=== PATIENT | male | born 1935 | race Caucasian/White ===

== ENCOUNTER 2024-03-03 21:33 | Emergency (ER) | payer OTHER, SELFPAY ==
[2024-03-03 21:35] VITALS: BP 144/60
[2024-03-03 21:37] VITALS: BP 144/60
--- NOTE | 2024-03-03 21:47 | ED.GENMED ---
History of Present Illness
General
Chief Complaint: Abdominal Symptoms
Source: patient, ambulance crew and previous hospital records (Previous hospitalization December 2021 for chest pain, thought to be related to GERD. Confusion and lethargy related to UTI.)
Exam Limitations: none
Time Seen by Provider: 03/03/24 21:35
History of Present Illness
History of Present Illness:
This is an 88-year-old obese gentleman who resides at [facility] living apartment with his . He has history of A-fib chronically maintained on Eliquis, history of insulin requiring diabetes, cardioembolic stroke, GUILLERMO, GERD, BPH,
UTI who presents with over 2-week history of intermittent right upper quadrant, right anterolateral costal margin pain that seems to come and go, somewhat sharp and burning in nature. He denies coughing or shortness of breath, no nausea nor
vomiting, no fever no chills. No history of similar episodes of pain. No recent injury nor fall.
Was evaluated by his PCP, underwent outpatient CT abdomen pelvis February 14 overall unremarkable save for oral contrast in the distal esophagus likely representing GERD. Has been on pantoprazole twice daily. After CAT scan result Carafate was
added. Thus far no improvement.
Patient states pain comes and goes, severe at times. Is worse with certain movements however also occurs when he is just resting, without moving. He 'convinced' his to give him a tramadol this afternoon, he reports no significant improvement
with 1 dose of tramadol. He is chronically maintained on Tylenol 1000 mg twice daily. He has not had a rash.
Past History
Past History
ED Past Medical History: Arrthythmia (Atrial fibrillation), CVA, HTN, Hypercholesterolemia, IDDM, NIDDM and Other (GUILLERMO on CPAP, obesity, Chronic LBP w/ gait dysfunction; BPH)
ED Past Surgical History: Cardiac (Unremarkable cardiac catheterization April 2017.), Orthopedic (Lumbar laminectomy ( L3-L5)2012) and Other (Strabismus repair)
Patient has exhibited threatening behavior?: No
Social History
Tobacco: Non-smoker
Alcohol: None
Drug: None
Personal:
Living: with family
Employment: Retired
Family History
Family History: Hypertension
Phy Exam
Physical Exam
Physical Exam:
GENERAL: 88-year-old obese gentleman appears his stated age, bright and alert, pleasant, easily communicative and appears in no acute distress. Intermittently, briefly wincing in pain during initial exam.
EYE: anicteric
NECK: Supple, nontender, no meningismus, no significant adenopathy.
ENT: oral mucosa is moist. No rhinorrhea.
CARDIAC: Regular rate and rhythm. no murmur.
LUNGS: no acute respiratory distress, scant rales right base. Moderate tenderness right anterolateral distal costal margin.
ABDOMEN: Obese, soft, nondistended, mild tenderness with deep palpation right upper superior quadrant, no r/g, no cvat. normoactive BS.
NEUROLOGICAL: Alert and oriented x3, no focal neuro deficits.
SKIN: Warm and dry, normal color, skin intact. No rash.
MUSCULOSKELETAL: No clubbing or cyanosis. Trace pretibial edema bilateral lower extremities. Peripheral pulses are full and equal b/l. No palpable tenderness.
PSYCH: Normal and appropriate interaction.
Course
Orders/Labs/Results
Orders:
Orders
03/03/24 21:50
Complete Blood Count/With Diff Urgent
03/03/24 21:58
CR Chest - 2 Views Urgent
Comment:
Reason For Exam: Right ant lower costal margin pleuritic pain
03/03/24 22:31
Comprehensive Metabolic Panel Urgent
Lipase Urgent
03/03/24 22:59
Urinalysis Reflex To Culture Urgent
Date Specimen was Collected: 03/03/24
Time Specimen was Collected: 22:58
Urine Microscopic Reflex Cult Urgent
Urine Culture Urgent
DARYA Source: U
Specimen Description:
Date Specimen was Collected: 03/03/24
Time Specimen was Collected: 22:58
03/03/24 23:04
Ketorolac [Toradol] 30 mg IV NOW STA
03/04/24 00:28
Lidocaine [Lidocaine 4% Patch] 1 patch TOPICAL NOW STA
Apply Lidocaine patch(s) to:: right ant chest wall
Abnormal Lab Results
03/03/24 03/03/24 03/03/24
21:50 22:31 22:59
RBC 4.34 L 10^6/uL
(4.70-6.10)
MCH 33.9 H pg
(27.0-31.0)
Absolute Monos (auto) 0.7 H 10^3/uL
(0.1-0.6)
Absolute Eos (auto) 1.3 H 10^3/uL
(0-0.7)
Eosinophils % 15.9 H %
(0-6)
Glucose 169 H mg/dl
(70-99)
Ur Occult Blood Reflex 1+ A
(Negative)
Leukocyte Esterase Rfl 2+ A
(Negative)
Urine RBC 11-15 A /HPF
(0-2)
Urine WBC (Reflex) 21-25 A /HPF
(0-5)
Urine Bacteria (Reflex) Few A
(Negative)
03/03/24 21:50
03/03/24 22:31
Vital Signs
Initial and Last Documented VS:
Initial Vital Signs
Temp Pulse Resp BP Pulse Ox
97.2 F 71 15 144/60 97
03/03/24 21:35 03/03/24 21:35 03/03/24 21:35 03/03/24 21:35 03/03/24 21:35
Last Documented Vital Signs
Temp Pulse Resp BP Pulse Ox
97.2 F 66 20 155/66 97
03/03/24 21:35 03/03/24 23:55 03/03/24 23:55 03/03/24 23:55 03/03/24 23:55
MDM/Problems Addressed
Differential Diagnosis Includes:
Concern for intercostal muscle/chest wall strain, pneumonia, pleural effusion, cholecystitis, renal colic/right ureteric stone.
Symptoms have been intermittent over the past 2 weeks, no accompanying rash, herpes zoster is doubtful.
Will check labs, urinalysis and plan for chest x-ray. Will consider other imaging depending on results.
Chronically maintained on Eliquis, PE/other thromboembolism are unlikely.
Chronic conditions affecting care: DM, HTN and Arrhythmia
*Radiology
Radiology exam reviewed: preliminary read by ED provider (Chest x-ray is unremarkable)
*Pulse Oximetry
Patient hypoxic: no
*Critical Care Note
Total Time (30-74mins, 75-104mins- exclusive of procedures): Not Applicable
Update Note
Update Note:
03/03/2024 2310 PM
Labs are unremarkable.
Chest x-ray is unremarkable as well, clear lung garcia.
He continues to have significant, pinpoint tenderness right anterior lower intercostal tenderness to palpation. Palpation in this area seems to exactly reproduce his pain.
With unremarkable labs, unremarkable CT 2 weeks ago. No indication to repeat CT of the abdomen and pelvis.
I suspect musculoskeletal pain either intercostal myofascitis versus an element of thoracic neuralgia.
Patient is prescribed tramadol but admits that she hesitates to use this as he sometimes becomes mildly drowsy, and she fears that he will fall especially at nighttime.
Will trial a one-time dose of Toradol.
03/04/2024 0029 AM
Patient reports no significant improvement in pain. Overall appears comfortable but continues with intermittent brief twinges of pain right anterior lower costal margin. He continues with moderate focal/pinpoint tenderness anterior distal
intercostal region.
He continues to have no shortness of breath, abdomen remains soft without appreciable tenderness.
Pain does not appear pleuritic in nature.
Will trial lidocaine patch. 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 He denies adhesive allergy with Band-Aids, Tegaderm for IVs,
excetra.
Will apply lidocaine patch and recommend he discontinue this in the morning.
He could trial topical numbing cream without overlying adhesive.
Recommend continuing twice daily Tylenol and continue tramadol at least in the a.m.
Recommend prompt follow-up with PCP on Tuesday for recheck. Could consider pain management evaluation.
ED Attending Note
-
Portions of this chart may have been created with voice recognition software.� Occasional wrong word or��sound alike� substitutions may have occurred due to the inherent limitations of voice recognition software.
Discharge Plan
Departure
Patient Disposition: Home (Routine Discharge)
Date of Disposition: 03/04/24
Time of Disposition: 00:39
Patient with high blood pressure during this ER visit?: No
Condition: Good
Discharge Problem:
Intercostal myositis
Instructions: Costochondritis
Prescriptions:
No Action
tamsulosin 0.4 MG capsule
0.4 mg PO QPM
finasteride 5 MG tablet
5 mg PO QPM
Eliquis 5 MG tablet
5 mg PO BID Qty: 60 0RF
Systane (PF) 1 EACH dropperette
1 - 2 drops BOTH EYES BID
Januvia 100 MG tablet
100 mg PO DAILY
PreserVision AREDS 1 CAP capsule
1 cap PO BID
L.acidoph, paracasei,B. lactis 1 EACH capsule
1 ea PO DAILY
Novolin N NPH U-100 Insulin 1,000 UNITS/10 ML suspension
80 - 100 units SC BID
Patient Comments:
psyllium Packet
0.5 packet PO BID
tramadol 50 mg Tablet
50 mg PO BID PRN (Reason: moderate pain)
Patient Comments:
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
pantoprazole [Protonix] 40 mg Tablet,Delayed Release (Dr/Ec)
40 mg PO BID
metformin 500 mg Tablet Extended Release 24 Hr
500 mg PO QPM
Cbd Gummies
1 ea PO HS
methenamine hippurate 1 gram tablet
1 g PO BID Qty: 60 0RF
ascorbic acid (vitamin C) [Vitamin C] 1,000 mg tablet
500 mg PO BID Qty: 60 0RF
polyethylene glycol 3350 [Miralax] 17 gram Powder In Packet
17 g PO DAILY PRN (Reason: constipation)
sucralfate 1 gram Tablet
1 g PO BID
Kaopectate (bismuth subsalicy) 262 mg Tablet
262 mg PO 4XD PRN (Reason: vomiting)
fluticasone propionate 50 mcg/actuation [place],Suspension
1 spray INTRANASAL DAILY
loratadine 10 mg Tablet
10 mg PO DAILY PRN (Reason: allergies)
guaifenesin [Mucinex] 600 mg Tablet Extended Release 12hr
600 mg PO Q12H PRN (Reason: cough)
acetaminophen 500 mg Tablet
1,000 mg PO BID
Referrals:
Emily Tapia MD [Family Provider] - Next open appointment
Interventions
Interventions:
*Risk Screen - Suicide Last Done: 03/03/24 21:35
*General Assessment Last Done: 03/03/24 21:35
*Neglect/Abuse Screening Last Done: 03/03/24 21:35
ED- Fall Risk Assessment Last Done: 03/03/24 21:42
*ED COVID-19 Vaccine History Last Done: 03/03/24 21:35
ST-Uppixl-Ptseypklvb Assessment Last Done: 03/03/24 21:42
Discharge Date and Time
Print Language: TUNISIAN
[2024-03-03 21:58] LABS: % Basophils 0.2 % (0-2); % Eosinophils 15.9 % (0-6); % Immature Granulocytes 0.5 % (0-0.5); % Lymphocytes 24.6 % (20.5-51.1); % Monocytes 8.8 % (1.7-9.3); Absolute Eosinophils 1.3 10^3/uL (0-0.7); Absolute Monocytes 0.7 10^3/uL (0.1-0.6); Absolute Neutrophils 4.1 10^3/uL (1.4-6.5); Hematocrit 40.6 % (39.0-52.0); Hemoglobin 14.7 g/dL (13.0-18.0); Mean Corp Hgb Conc. 36.2 g/dL (33.0-37.0); Mean Corpuscular Hgb 33.9 pg (27.0-31.0); Mean Corpuscular Volume 93.5 fL (80.0-94.0); Mean Platelet Volume 10.1 fL (7.4-10.4); Nucleated Red Blood Cells % 0 % (-); Platelet Count 194 10^3/uL (130-400); Red Blood Cell Count 4.34 10^6/uL (4.70-6.10); Red Cell Dist. Width 13.3 % (11.5-14.5); White Blood Cell Count 8.2 10^3/uL (4.8-10.8)
[2024-03-03 22:00] VITALS: BP 142/67
[2024-03-03 22:49] LABS: ALT (SGPT) 19 U/L (0-50); AST (SGOT) 22 U/L (17-59); Albumin 4.1 g/dl (3.5-5.0); Alkaline Phosphatase 67 U/L (38-126); Blood Urea Nitrogen 16 mg/dl (9-20); Carbon Dioxide 22 mmol/L (22-30); Chloride 105 mmol/L (98-107); Glucose 169 mg/dl (70-99); Lipase 101 U/L (23-300); Potassium 4.4 mmol/L (3.5-5.1); Sodium 138 mmol/L (135-145); Total Bilirubin 0.6 mg/dl (0.2-1.3); eGFR > 60.00
[2024-03-03 23:09] LABS: Urine Albumin Trace (Neg - Trace); Urine Bilirubin Negative (Negative); Urine Character Clear (Clear); Urine Color Yellow; Urine Glucose Negative (Negative); Urine Ketone Negative (Negative); Urine Leukocyte 2+ (Negative); Urine Nitrite Negative (Negative); Urine Occult Blood 1+ (Negative); Urine Urobilinogen Negative (Neg - 1+)
[2024-03-03] MEDS: TORADOL 30 MG IV (23:09)
[2024-03-03 23:22] LABS: Urine White Cell 21-25 /HPF (0-5)
[2024-03-03 23:23] LABS: Urine Bacteria Few (Negative)
[2024-03-03 23:55] VITALS: BP 155/66
[2024-03-04] MEDS: LIDOCAINE 4% PATCH 1 PATCH TOPICAL (00:34)
== END 2024-03-04 00:55 | disposition home or self-care (01) ==
LOC: EMR 21:33
PROVIDERS: EMERGENCY PHYSICIAN Emergency Medicine; FAMILY PHYSICIAN Internal Medicine Geriatric Medicine
DX: M60.9 Myositis, unspecified (principal); E11.9 Type 2 diabetes mellitus without complications; E78.00 Pure hypercholesterolemia, unspecified; G47.33 Obstructive sleep apnea (adult) (pediatric); I10 Essential (primary) hypertension; E66.9 Obesity, unspecified; K21.9 Gastro-esophageal reflux disease without esophagitis; N40.0 Benign prostatic hyperplasia without lower urinary tract symptoms; I48.91 Unspecified atrial fibrillation; Z79.01 Long term (current) use of anticoagulants; Z79.4 Long term (current) use of insulin; Z79.899 Other long term (current) drug therapy
CPT/HCPCS: 96374; 99284; 71046; 80053; 81003; 81015; 83690; 85025; 87086

== ENCOUNTER 2024-04-22 06:45 | Inpatient (IN) | payer OTHER, SELFPAY ==
[2024-04-20] VITALS (11 sets, daily range): BP systolic 143–158; BP diastolic 71–104; BMI 34.8
--- NOTE | 2024-04-20 10:33 | ED.GENMED ---
History of Present Illness
General
Chief Complaint: Cough
Source: patient, ambulance crew and assisted records
Exam Limitations: none
Time Seen by Provider: 04/20/24 10:27
Nursing documentation reviewed up to this point in time: agreed with
History of Present Illness
History of Present Illness:
88 yo male from [facility] w h/o TIA, PNA, sleep apnea w CPAP, Afib on Eliquis, BH, IDDM, macular degeneration presents for cough, feels 'weak.' Intermittent mid to left chest pains.
Past History
Past History
ED Past Medical History: Arrthythmia (Atrial fibrillation), CVA, HTN, Hypercholesterolemia, IDDM, NIDDM and Other (GUILLERMO on CPAP, obesity, Chronic LBP w/ gait dysfunction; BPH)
ED Past Surgical History: Cardiac (Unremarkable cardiac catheterization April 2017.), Orthopedic (Lumbar laminectomy ( L3-L5)2012) and Other (Strabismus repair)
Patient has exhibited threatening behavior?: No
Social History
Tobacco: Non-smoker
Alcohol: None
Drug: None
Personal:
Living: with family
Employment: Retired
Family History
Family History: Hypertension
Review of Systems
Review of Systems
Allergies reviewed?: Yes
All Other Systems: ROS reviewed and negative except as documented in HPI and ROS
Constitutional: Reports fatigue; Denies fever
EENT: Denies sore throat
Respiratory: Reports cough; Denies trouble breathing
Cardiac: Reports chest pain
ABD/GI: Denies abdominal pain, nausea, vomiting, diarrhea or anorexia
: Denies dysuria
Musculoskeletal: Denies edema
Skin: Reports no symptoms
Neurological: Reports no symptoms
Phy Exam
Physical Exam
Physical Exam:
GENERAL: No acute distress. Somnolent, arousable, mildly confused
CONSTITUTIONAL: Afebrile.
EYES: clear, conjunctivae normal
ENMT: moist mucus membranes, Pharynx nl
RESPIRATORY: Regular respirations, nonlabored, lungs clear.
CARDIOVASCULAR: Regular rate and rhythm, no murmurs, no rubs.
GI: Soft, nontender, normal BS
MUSCULOSKELETAL: Well perfused. No edema
SKIN: Warm, dry, pink
PSYCH: Pleasant, depressed, mood and affect. Well kept, answers questions seemingly appropriately
NEUROLOGIC: Awake, somnolent, easily aroused with calling of name. Follows commands. No focal neurological deficits
Course
Orders/Labs/Results
Orders:
Orders
04/20/24 10:27
EKG [Electrocardiogram (*1)] Urgent
Reason for Study: Shortness of Breath
04/20/24 10:28
EKG- Treatment ONCE
04/20/24 10:31
CR Chest - 2 Views Urgent
Comment:
Reason For Exam: cough
04/20/24 10:33
COVID-19 Antigen Urgent
Source: Nasal Swab
Complete Blood Count/With Diff Urgent
Comprehensive Metabolic Panel Urgent
NT-proBNP Urgent
Troponin I Urgent
Influenza A+B Rapid Molecular Urgent
DARYA Source: Nasal Swab
Specimen Description:
04/20/24 13:03
Physical Therapy Consult [Pt Eval And Treat] Urgent
Treatment: ambulate
Activity Level: As Tolerated
04/20/24 14:31
Admit/Transfer Patient As Directed
Co-Sign Provider:
Level of Care: Observation services
Assign to:: Medical/Surgical
Physician / Group: brennan
Diagnosis: influenza
Code Status As Directed
Resuscitation Status: Full Code
PRN Pain Medication Management As Directed
May give lesser potent ordered pain med per pt: Yes
preference::
Protocol:: Medication orders for pain may be administered in a
manner that supports deferring to patient preference
when the pt is:
- Requesting an ordered lesser potent pain medication.
Least to most potent pain medications are defined
as: acetaminophen < NSAID < tramadol < opioids
(morphine, oxycodone, hydromorphone).
- Requesting a lesser dose of the same medication IF
ORDERED.
- Requesting a less intrusive route of administration
if both routes are prescribed by the provider (PO <
IV).
04/20/24 Dinner
Regular
At Your Request: Non-Participating
04/20/24 16:33
Acetaminophen [Tylenol] 650 mg PO Q4HPRN PRN
Ondansetron Injectable [Zofran] 4 mg IV Q6HPRN PRN
Oseltamivir Phosphate [Tamiflu] 75 mg PO NOW STA
04/20/24 16:33
VTE Contraindication Routine
VTE Mechanical Device Contraindication: Medical Contraindication
Pharmocologic Contraindication: Medical Contraindication
Activity As Directed
Activity Level: As Tolerated
Vital Signs As Directed
Frequency: Per unit guidelines
Ot Eval And Treat Routine
04/20/24 23:00
Oseltamivir Phosphate [Tamiflu] 75 mg PO BID
04/21/24 05:44
Complete Blood Count/With Diff IN AM
Comprehensive Metabolic Panel IN AM
Abnormal Lab Results
04/20/24
10:33
RBC 4.29 L 10^6/uL
(4.70-6.10)
MCV 100.2 H fL
(80.0-94.0)
MCH 33.1 H pg
(27.0-31.0)
Absolute Lymphs (auto) 0.8 L 10^3/uL
(1.2-3.4)
Absolute Monos (auto) 0.7 H 10^3/uL
(0.1-0.6)
Neutrophils % 76.2 H %
(42.2-75.2)
Lymphocytes % 11.3 L %
(20.5-51.1)
Monocytes % 10.1 H %
(1.7-9.3)
Glucose 200 H mg/dl
(70-99)
Total Bilirubin 1.6 H mg/dl
(0.2-1.3)
04/20/24 10:33
04/20/24 10:33
Vital Signs
Initial and Last Documented VS:
Initial Vital Signs
Pulse Resp Pulse Ox
89 17 94
04/20/24 10:27 04/20/24 10:27 04/20/24 10:27
Last Documented Vital Signs
Temp Pulse Resp BP Pulse Ox
98.3 F 72 19 138/77 93
04/21/24 07:33 04/21/24 07:33 04/21/24 07:33 04/21/24 07:33 04/21/24 07:33
MDM/Problems Addressed
MDM/Problems Addressed:
88 yo male from [facility] w h/o TIA, PNA, sleep apnea w CPAP, Afib on Eliquis, BH, IDDM, macular degeneration presents for cough, feels 'weak.' Intermittent mid to left chest pains.
CBC unremarkable
CMP w no clinically significant abnormality.
Flu A positive
Troponin normal
BNP normal
Covid neg
12:20 p.m.
CXR:NAD
Symptoms started 3 days ago. Tamiflu not indicated.
with cough
Pt somnolent, easily arouses, pleasant, confused at times, afebrile, no hypoxia, no significant cough during stay, CXR neg
Stable for discharge
1:30 p.m.
Pt states she is not comfortable handling him at home as she can't help him up if he falls.
P/T consulted and in. Pt is unable to stand, is somnolent and not safe for discharge to home.
Plan: Admit to Hospitalist
Flu A positive, generalized weakness, ambulatory dysfunction.
Chronic conditions affecting care: HTN, Arrhythmia (Afib) and Kidney disease
*Critical Care Note
Total Time (30-74mins, 75-104mins- exclusive of procedures): Not Applicable
ED Attending Note
-
Portions of this chart may have been created with voice recognition software.� Occasional wrong word or��sound alike� substitutions may have occurred due to the inherent limitations of voice recognition software.
Discharge Plan
Departure
Patient Disposition: Admit
Date of Disposition: 04/20/24
Time of Disposition: 13:51
Admit to: Med/Surg
Presentation/result/management discussed w/ accepting MD/DO: Hospitalist
Patient with high blood pressure during this ER visit?: No
Condition: Fair
Covid-19: Negative COVID-19
Discharge Problem:
Influenza A, Generalized weakness, Ambulatory dysfunction
Interventions
Interventions:
*Risk Screen - Suicide Last Done: 04/20/24 10:29
*General Assessment Last Done: 04/20/24 10:29
*Neglect/Abuse Screening Last Done: 04/20/24 10:29
ED- Fall Risk Assessment Last Done: 04/20/24 10:37
*ED COVID-19 Vaccine History Last Done: 04/20/24 10:37
*Nursing Disposition Last Done: 04/20/24 16:20
ED- Pulmonary Assessment Last Done: 04/20/24 10:37
Discharge Date and Time
Discharge Date/Time: 04/20/24 16:33
[2024-04-20 10:48] LABS: % Basophils 0.3 % (0-2); % Eosinophils 1.8 % (0-6); % Immature Granulocytes 0.3 % (0-0.5); % Lymphocytes 11.3 % (20.5-51.1); % Monocytes 10.1 % (1.7-9.3); % Neutrophils 76.2 % (42.2-75.2); Absolute Eosinophils 0.1 10^3/uL (0-0.7); Absolute Lymphocytes 0.8 10^3/uL (1.2-3.4); Absolute Monocytes 0.7 10^3/uL (0.1-0.6); Absolute Neutrophils 5.5 10^3/uL (1.4-6.5); Hemoglobin 14.2 g/dL (13.0-18.0); Mean Corpuscular Hgb 33.1 pg (27.0-31.0); Mean Corpuscular Volume 100.2 fL (80.0-94.0); Mean Platelet Volume 9.9 fL (7.4-10.4); Nucleated Red Blood Cells % 0 % (-); Platelet Count 168 10^3/uL (130-400); Red Blood Cell Count 4.29 10^6/uL (4.70-6.10); Red Cell Dist. Width 13.7 % (11.5-14.5); White Blood Cell Count 7.2 10^3/uL (4.8-10.8)
[2024-04-20 11:00] LABS: ALT (SGPT) 23 U/L (0-50); AST (SGOT) 34 U/L (17-59); Albumin 4.2 g/dl (3.5-5.0); Alkaline Phosphatase 68 U/L (38-126); Blood Urea Nitrogen 18 mg/dl (9-20); Calcium 8.9 mg/dl (8.4-10.2); Carbon Dioxide 27 mmol/L (22-30); Chloride 101 mmol/L (98-107); Glucose 200 mg/dl (70-99); Potassium 4.8 mmol/L (3.5-5.1); Sodium 137 mmol/L (135-145); Total Bilirubin 1.6 mg/dl (0.2-1.3); Total Protein 6.9 g/dl (6.3-8.2); eGFR > 60.00
[2024-04-20 11:04] LABS: COVID-19 Antigen Negative (Negative)
[2024-04-20 11:12] LABS: NT-proBNP 412 pg/ml; Troponin I < 0.012 ng/ml
--- NOTE | 2024-04-20 14:34 | HPS.HSE ---
Family Physician
-
Family Physician: Emily Tapia
Chief Complaint
-
weakness
History of Present Illness
88-year-old male past medical history of type 2 diabetes, hypertension, obesity, pulmonary nodules, TIA, CVA, hypercholesterolemia, obstructive sleep apnea, presenting from [facility] for weakness and cough, sore throat, for the past 2 days.
Denies fever. Denies nausea vomiting or diarrhea or abdominal pain. He has been eating. Denies any fall.
Medical History
Past Medical History
Past Medical History: Reports Other ( type 2 diabetes, hypertension, obesity, pulmonary nodules, TIA, CVA, hypercholesterolemia, obstructive sleep apnea)
Past Surgical History: Reports Other (Orthopedic (Lumbar laminectomy ( L3-L5)2012) and Other (Strabismus repair))
Social History
Tobacco: Non-smoker
Alcohol: None
Drug: None
Family History
Family History: Not pertinent
Allergies / Home Medications
Allergies reflects when Allergies were last updated in [facility].
Home Medications with original date entered in [facility]
Allergy/Medication List:
Allergies
Allergy/AdvReac Type Severity Reaction Status Date / Time
amoxicillin [From Augmentin] Allergy Mild Nausea Verified 04/20/24 10:27
clavulanic acid Allergy Mild Nausea Verified 04/20/24 10:27
[From Augmentin]
metoprolol [From Toprol XL] Allergy Mild Rash Verified 04/20/24 10:27
adhesive tape Allergy Rash Verified 04/20/24 10:27
mushroom Allergy Shortness Verified 04/20/24 10:27
of Breath
pollen extracts Allergy Itching, Verified 04/20/24 10:27
sneezing -
seasonal
Home Medications
finasteride 5 mg tablet 5 mg PO QPM Urinary issue 04/21/11
tamsulosin 0.4 mg capsule 0.4 mg PO QPM Urinary issue 04/21/11
apixaban 5 mg tablet (Eliquis) 5 mg PO BID #60 tabs 05/15/19
L.acidoph,paracasei,B.animalis 10 billion cell capsule 1 ea PO DAILY Gastrointestinal issue 08/08/20
insulin NPH isoph U-100 human 100 unit/mL subcutaneous suspension (Novolin N NPH U-100 Insulin isophane) 80 - 100 units SC BID Diabetes 08/08/20
peg 400-propylene glycol (PF) 0.4 %-0.3 % eye drops in a dropperette (Systane (PF)) 1 - 2 drops BOTH EYES BID Eye condition 08/08/20
sitagliptin phosphate 100 mg tablet (Januvia) 100 mg PO DAILY Diabetes 08/08/20
vitamins A,C,K-xeuq-hegslf 4,296 mcg-226 mg-90 mg capsule (PreserVision AREDS) 1 cap PO BID Supplement 08/08/20
Cbd Gummies 1 ea PO HS Sleep 12/29/21
metformin 500 mg tablet,extended release 24 hr 500 mg PO QPM Diabetes 12/29/21
pantoprazole 40 mg tablet,delayed release (Protonix) 40 mg PO BID 12/29/21
psyllium 0.5 packet PO BID Constipation 12/29/21
tramadol 50 mg tablet 50 mg PO BID PRN moderate pain 12/29/21
ascorbic acid (vitamin C) 1,000 mg tablet (Vitamin C) 500 mg (1/2 x 1,000 mg) PO BID #60 tabs 01/01/22
methenamine hippurate 1 gram tablet 1 g PO BID #60 tabs 01/01/22
acetaminophen 500 mg tablet 1,000 mg PO BID 03/03/24
bismuth subsalicylate 262 mg tablet (Kaopectate (bismuth subsalicylate)) 262 mg PO 4XD PRN vomiting 03/03/24
fluticasone propionate 50 mcg/actuation nasal spray,suspension 1 spray intranasal DAILY 03/03/24
guaifenesin 600 mg tablet, extended release 12 hr (Mucinex) 600 mg PO Q12H PRN cough 03/03/24
loratadine 10 mg tablet 10 mg PO DAILY PRN allergies 03/03/24
polyethylene glycol 3350 17 gram oral powder packet (Miralax) 17 g PO DAILY PRN constipation 03/03/24
sucralfate 1 gram tablet 1 g PO BID 03/03/24
Review of Systems
-
History Source: Patient
A 12 point ROS was completed and negative except as noted: Yes
Constitutional: Reports No Symptoms
EENT: Reports No Symptoms
Respiratory: Reports No Symptoms
Cardiac: Reports No Symptoms
Abdomen/GI: Reports No Symptoms
: Reports No Symptoms
Musculoskeletal: Reports No Symptoms
Skin: Reports No Symptoms
Neurological: Reports No Symptoms
Endocrine: Reports No Symptoms
Hematologic/Lymphatic: Reports No Symptoms
Psych: Reports No Symptoms
Physical Exam
Vital Signs
Vital Signs
Temp Pulse Resp BP Pulse Ox
98.5 F 90 16 150/74 95
04/20/24 10:29 04/20/24 13:12 04/20/24 13:12 04/20/24 14:14 04/20/24 13:15
Physical Exam
General: Well Developed, Well Nourished and No Apparent Distress
HEENT: NormoCephalic, Moist mucous membranes and Atraumatic
Respiratory: Clear
Cardiac: S1/S2 and Regular Rhythm; No Murmur or Rub
GI: Soft, Non Tender, Non Distended and Normal Bowel Sounds; No Organomegaly
Rectal: Deferred by Provider
Musculoskeletal: No Clubbing, No Cyanosis and No Edema
Skin: No Rash
Neuro: Nonfocal/grossly intact
Laboratory Results
-
04/20/24 10:33
04/20/24 10:33
Laboratory Results
Total Bilirubin 1.6 mg/dl (0.2-1.3) H 04/20/24 10:33
AST 34 U/L (17-59) 04/20/24 10:33
ALT 23 U/L (0-50) 04/20/24 10:33
Alkaline Phosphatase 68 U/L (38-126) 04/20/24 10:33
Troponin I < 0.012 ng/ml 04/20/24 10:33
Data Reviewed
-
Lab Data: Labs Reviewed by me
Old Records: Reviewed
Impression/Plan
-
IMPRESSION:
PLAN:
# Influenza A infection
-Tamiflu
-PT/OT
Type 2 diabetes
-Hold metformin, Januvia
-Insulin sliding scale
-Continue Lantus at reduced dosage
Atrial fibrillation
-Continue Eliquis
Essential hypertension
Obesity
Pulmonary nodules
History of TIA/CVA
Hypercholesterolemia
Obstructive sleep apnea
History of lumbar laminectomy
BPH
-Continue tamsulosin, finasteride
Macular degeneration
GERD
-continue Protonix
Full code
DVT prophylaxis�Eliquis
Regular diet
[2024-04-20] MEDS: TAMIFLU 75 MG PO ×2 (16:59→22:51)
[2024-04-20] MEDS: HUMULIN N KWIKPEN SC (20:25)
[2024-04-20] MEDS: MUCINEX 600 MG PO (20:25)
[2024-04-20] MEDS: ELIQUIS 5 MG PO (20:25)
[2024-04-20] MEDS: VITAMIN C 500 MG PO (20:26)
[2024-04-20] MEDS: HIPREX 1 GRAM PO (20:26)
[2024-04-20] MEDS: REFRESH EYE DROPS (PF) 1 DROPS BOTH EYES (20:26)
[2024-04-20 23:08] LABS: Glucose - Point of Care 245 mg/dl (70-99)
[2024-04-21] VITALS (8 sets, daily range): BP systolic 132–153; BP diastolic 62–79; BMI 34.8; BMI 34.6
[2024-04-21] MEDS: ZOFRAN 4 MG IV (03:09)
[2024-04-21 06:14] LABS: % Basophils 0.2 % (0-2); % Immature Granulocytes 0.3 % (0-0.5); % Lymphocytes 9.9 % (20.5-51.1); % Monocytes 5.9 % (1.7-9.3); % Neutrophils 83.7 % (42.2-75.2); Absolute Lymphocytes 1.2 10^3/uL (1.2-3.4); Absolute Monocytes 0.7 10^3/uL (0.1-0.6); Absolute Neutrophils 9.9 10^3/uL (1.4-6.5); Hematocrit 44.5 % (39.0-52.0); Mean Corp Hgb Conc. 33.7 g/dL (33.0-37.0); Nucleated Red Blood Cells % 0 % (-); Platelet Count 184 10^3/uL (130-400); Red Blood Cell Count 4.54 10^6/uL (4.70-6.10); Red Cell Dist. Width 13.6 % (11.5-14.5); White Blood Cell Count 11.8 10^3/uL (4.8-10.8)
[2024-04-21 06:42] LABS: ALT (SGPT) 26 U/L (0-50); AST (SGOT) 42 U/L (17-59); Albumin 4.3 g/dl (3.5-5.0); Alkaline Phosphatase 77 U/L (38-126); Blood Urea Nitrogen 23 mg/dl (9-20); Calcium 8.7 mg/dl (8.4-10.2); Carbon Dioxide 25 mmol/L (22-30); Chloride 97 mmol/L (98-107); Estimated Creatinine Clearance 62 ml/min; Glucose 314 mg/dl (70-99); Potassium 4.5 mmol/L (3.5-5.1); Sodium 137 mmol/L (135-145); Total Bilirubin 2.2 mg/dl (0.2-1.3); Total Protein 7.1 g/dl (6.3-8.2); eGFR > 60.00
[2024-04-21 07:32] LABS: Glucose - Point of Care 311 mg/dl (70-99)
--- NOTE | 2024-04-21 09:53 | W.PN.HOSP.TC ---
Today's Communication/Plan
-
STAT ABG
STAT OBS series
transfer to IMU
pulm consult
add IV ABX and steroids
Assessment / Plan
Assessment / Plan
pt is an 88 year old male
acute hypoxemic resp failure--due to combination of influenza A + and aspiration (pneumonitis vs pna)--transfer to IMU--on 5L O2--STAT ABG, STAT OBS series, consult pulm--cont tamiflu, incentive spirometer, add IV steroids and IV abx
Type 2 diabetes--cont metformin, Januvia as able--Insulin sliding scale--Continue Lantus as able--blood sugars running high, will be higher with addition of steroids
paroxysmal Atrial fibrillation--Continue Eliquis
Essential hypertension--not on home meds?
Obesity--affects all aspects of care
Pulmonary nodules--noted
History of TIA/CVA--noted
Hypercholesterolemia
Obstructive sleep apnea--does pt wear machine?
BPH--Continue tamsulosin, finasteride
GERD--continue Protonix
code status --Full code
DVT prophylaxis�Eliquis
Anticipated Discharge: > 48 hours
Subjective/Interval History
-
Date of Service: April 21, 2024
pt talking but subdued
appeared to aspirate his vomit this AM
Objective Data
-
Labs:
Laboratory Results
04/21/24 04/21/24
05:44 09:49
WBC 11.8 H
Hgb 15.0
Hct 44.5
Plt Count 184
HCO3 Pending
Sodium 137
Potassium 4.5
Chloride 97 L
Carbon Dioxide 25
BUN 23 H
Creatinine 1.1
Glucose 314 H
Calcium 8.7
Total Bilirubin 2.2 H
AST 42
ALT 26
Alkaline Phosphatase 77
Vital Signs:
max temp for 24 hours
04/20/24
23:32
Temp 98.9 F
Vital Signs
Temp Pulse Resp BP Pulse Ox
98.3 F 72 19 138/77 93
04/21/24 07:33 04/21/24 07:33 04/21/24 07:33 04/21/24 07:33 04/21/24 07:33
I&O
04/20/24 04/21/24 04/22/24
06:59 06:59 06:59
Intake Total 480 / 480
Balance 480 / 480
Review of Systems
-
Unable to obtain full review of systems at this time due to: Acuity
Physical Exam
-
General: Well Developed, Well Nourished and Morbidly Obese
HEENT: Normocephalic, Atraumatic and Oxygen (5L)
Respiratory: Wheezes and Rales
Cardiac: Regular Rhythm and S1/S2; Negative Murmur
GI: Nontender, Normal Bowel Sounds and Distended (tympanitic); Negative Soft (firm)
Musculoskeletal: No Clubbing, No Cyanosis and No Edema
Skin: Warm
Neuro: Awake; Negative Alert
Psych: Calm
[2024-04-21] MEDS: HUMULIN N KWIKPEN 40 UNITS SC (10:13)
[2024-04-21 10:24] LABS: B.E. 1.2 mmol/L; PCO2 41 mmHg (35-48); PO2 76 mmHg (83-108); pH 7.41 (7.35-7.45)
--- NOTE | 2024-04-21 11:33 | TRANSFER ---
dry box tender reported patient found to have vomited in middle of shift and suspected aspiration. Patient kept NPO. At 0915 patient c/o increased WOB and on assessment oxygen saturation had dropped to 88% on RA and wheezing. Placed and 5 liters
oxygen and saturation increase to 94%, and attending MD notified. MD ordered transfer to IMU, obstructive series, chest xray, IV steroids, IV abx. Report given and pt transferred about 1020am.
[2024-04-21] MEDS: ELIQUIS PO ×2 (12:50→20:21)
[2024-04-21] MEDS: MUCINEX PO ×2 (12:50→20:21)
[2024-04-21] MEDS: HIPREX PO ×2 (12:50→20:21)
[2024-04-21] MEDS: TAMIFLU PO ×2 (12:50→20:22)
[2024-04-21] MEDS: LYRICA PO (12:50)
[2024-04-21] MEDS: OCUVITE SOFTGEL PO (12:50)
[2024-04-21] MEDS: VITAMIN C PO ×2 (12:51→20:22)
[2024-04-21] MEDS: DECADRON 4 MG IV ×3 (12:51→23:56)
[2024-04-21] MEDS: VISBIOME PO (12:51)
[2024-04-21] MEDS: ZOSYN 50 IV ×2 (12:51→17:18)
[2024-04-21] MEDS: REFRESH EYE DROPS (PF) 1 DROPS BOTH EYES ×2 (12:54→20:22)
--- NOTE | 2024-04-21 13:18 | PTOTSP ---
Speech Therapy Evaluation:
Pt exhibits acute on chronic signs of oropharyngeal dysphagia. Chronic component likely related to history of COPD and mild pharyngeal dysphagia. Acute component likely related to Flu symptoms, contributing to xerostomia, increased cough/congestion,
and respiratory demand. Pt with persistent coughing prior to and following PO trials of ice chips, therefore difficult to discern if related to penetration/aspiration event. Pt remains at a HIGH risk of aspiration given reduced coordination of
breathing and swallowing during coughing episodes.
Recommend:
1. Temporary NPO
2. Essential medications crushed in puree
3. Oral care 3x/daily
4. CLUTCH INSPECTOR to follow re: ability to initiate oral diet and determine if repeat VSE warranted
--- NOTE | 2024-04-21 13:39 | PTCARENOTE ---
Received into 3345, IMU monitors placed- SR BBB 90s- RR 24-30 94% on 5L increased to 6L briefly during sleep dropped to 87%. Audible Harsh moist non prod. cough. Oral care completed. Grossly distended abdomen with tympanic bs. Bladder scanned
159ml on arrival. Escorted to radiology via monitored stretcher. NGT orders noted - pt adamantly refusing tube- explanation/ teaching provided- 'I really don't think I need that' shaking head no. Dr. Hilario notified. No vomiting noted since
arrival, denies nausea. Skin hot / dry- afebrile. No void since arrival - will monitor. updated on phone- she is home with flu as well.
[2024-04-21 14:05] LABS: Glucose - Point of Care 360 mg/dl (70-99)
--- NOTE | 2024-04-21 16:49 | CON.PUL ---
Consultation
Consultation Request
Date/Time Consultation Requested: 04/21
Date/Time Consultation Performed: 04/21
Reason for Consultation: Hypoxia
Medical History
-
History of Present Illness:
History primarily obtained from the chart as patient is currently sleeping. Awoke briefly during exam but did not stay awake. Was snoring. 88-year-old male with history of diabetes, hypertension, stroke, sleep apnea who presents from [facility] with URI symptoms, sore throat for the past 2 days. Upon arrival to ED, pulse 89, breathing at 17, 94% on room air, afebrile. Found to be influenza A positive. Of note, also has symptoms. Plan was for patient to be discharged home
however states she was not comfortable as could not manage if he were to fall therefore he was admitted. Hospital stay reviewed. Developed worsening hypoxia after episode of nausea/emesis requiring 5 L, 93%. Patient upgraded to IMU. We are
asked to comment on his pulmonary status
Presently he is on 6 L, 96%. He is sleeping comfortably
.
PMH: Hypertension, hyperlipidemia, diabetes, atrial fibrillation on anticoagulation, history of stroke/TIA, sleep apnea, BPH, GERD
Past Medical History
Past Medical History: None (See above)
Past Surgical History: None (See above)
Social History
Tobacco: Non-smoker
Alcohol: None
Drug: None
Personal:
Living: With Family
Employment: Retired
Family History
Family History: Other (Father from abdominal aortic aneurysm. Sister with aortic disease. Mother heavy smoker. 1 daughter)
Allergies / Home Medications
Allergies
Allergy/AdvReac Type Severity Reaction Status Date / Time
adhesive tape Allergy Rash Verified 04/20/24 10:27
amoxicillin [From Augmentin] Allergy Nausea/DIAR Verified 04/20/24 16:38
MICHAEL
clavulanic acid Allergy Nausea/DIAR Verified 04/20/24 16:38
[From Augmentin] MICHAEL
metoprolol [From Toprol XL] Allergy Rash Verified 04/20/24 16:38
mushroom Allergy Shortness Verified 04/20/24 10:27
of Breath
pollen extracts Allergy Itching, Verified 04/20/24 10:27
sneezing -
seasonal
Home Medications
�Medication �Instructions �Recorded �Confirmed �Last Taken �Type
finasteride 5 mg tablet 5 mg PO QPM Urinary issue 04/21/11 04/20/24 04/19/24 History
tamsulosin 0.4 mg capsule 0.4 mg PO QPM Urinary issue 04/21/11 04/20/24 04/19/24 History
apixaban 5 mg tablet (Eliquis) 5 mg PO BID #60 tabs 05/15/19 04/20/24 04/19/24 Rx
L.acidoph,paracasei,B.animalis 10 1 ea PO DAILY Gastrointestinal 08/08/20 04/20/24 04/19/24 History
billion cell capsule issue
insulin NPH isoph U-100 human 100 80 - 100 units SC BID Diabetes 08/08/20 04/20/24 04/19/24 History
unit/mL subcutaneous suspension
(Novolin N NPH U-100 Insulin
isophane)
peg 400-propylene glycol (PF) 0.4 1 drops BOTH EYES BID Eye condition 08/08/20 04/20/24 04/19/24 History
%-0.3 % eye drops in a dropperette
(Systane (PF))
sitagliptin phosphate 100 mg 100 mg PO DAILY Diabetes 08/08/20 04/20/24 04/19/24 History
tablet (Januvia)
vitamins A,C,T-lfsm-slulbd 4,296 1 cap PO DAILY Supplement 08/08/20 04/20/24 04/19/24 History
mcg-226 mg-90 mg capsule
(PreserVision AREDS)
metformin 500 mg tablet,extended 500 mg PO DAILY Diabetes 12/29/21 04/20/24 04/19/24 History
release 24 hr
psyllium 0.5 packet PO Q48H@2000 12/29/21 04/20/24 12/29/21 History
Constipation
ascorbic acid (vitamin C) 1,000 mg 500 mg (1/2 x 1,000 mg) PO BID #60 01/01/22 04/20/24 04/19/24 Rx
tablet (Vitamin C) tabs
methenamine hippurate 1 gram tablet 1 g PO BID #60 tabs 01/01/22 04/20/24 04/19/24 Rx
guaifenesin 600 mg tablet, 600 mg PO Q12H cough 03/03/24 04/20/24 04/19/24 History
extended release 12 hr (Mucinex)
pregabalin 25 mg capsule (Lyrica) 25 mg PO DAILY 04/20/24 04/20/24 04/19/24 History
Review of Systems
-
Unable to Obtain full review of systems at this time due to: Other (Patient is sleeping)
All other systems: Negative unless noted
Vitals / Labs / Diagnostic Testing
Vital Signs
Temp Pulse Resp BP Pulse Ox
98.3 F 91 24 142/62 94
04/21/24 07:33 04/21/24 14:00 04/21/24 14:00 04/21/24 14:00 04/21/24 13:00
Lab Data
04/21/24 05:44
04/21/24 05:44
Laboratory Results
04/21/24
10:17
pH 7.41
pCO2 41
pO2 76 L
HCO3 26.0
O2 Delivery Level
Microbiology
04/20/24 10:33 Nasal Swab Influenza Types A & B (GUALBERTO) - Final
Influenza A Positive, NAAT
Diagnostic Testing:
Physical Exam
-
HEENT: Normocephalic and Other (Large neck)
Cardiovascular: S1/S2, Regular Rhythm, Murmur (n), Rub (n) and Peripheral Edema (tr)
Respiratory: Wheeze (n), Rales (n), Rhonchi (n), Non-Labored Respirations and Other (Snoring)
GI: Soft, Non Distended (Obese) and Non Tender
Neurology: Other (Sleeping comfortably)
Skin: Good Color
General: Comfortable
Assessment
-
88-year-old male with history of diabetes, sleep apnea, atrial fibrillation who lives in [facility], presents with few days of URI symptoms found to have influenza A. Developed episode of emesis with possible aspiration event, increased
respiratory distress, increased oxygen requirement transferred to IMU
Acute hypoxic respiratory insufficiency requiring 5 L
93%
Acute influenza A
URI symptoms x 3 days
Leukocytosis
Conditions present prior to admission
History of CHF
Obstructive sleep apnea on CPAP
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
Hypertension/hyperlipidemia
GERD
Atrial fibrillation on anticoagulation
Chronic rhinitis
Obesity
History of nodules
Plan/recommendations
Patient appears to be comfortable
Episode of emesis associated with increased respiratory distress, hypoxia noted
Chest exam is clear
Chest x-ray is unremarkable
Presently 96% on 6 L
Moving forward
Continue with supportive care
Remains on Tamiflu.
Also was on Zosyn therapy although do not think this is needed at this time. Will consider discontinuing within 24 hours depending on clinical course
Hold for chemical pneumonitis
Head of bed elevated, aspiration precautions
Continue Eliquis therapy
Will order CPAP therapy. Patient uses CPAP pressure of 13
We will follow
[2024-04-21] MEDS: NOVOLOG FLEXPEN-HIGH RESISTANCE 12 UNITS SC (17:01)
[2024-04-21 17:10] LABS: Glucose - Point of Care 371 mg/dl (70-99)
[2024-04-21] MEDS: HUMULIN N KWIKPEN 80 UNITS SC (17:16)
[2024-04-21] MEDS: FLOMAX PO (17:17)
[2024-04-21] MEDS: PROSCAR PO (17:17)
--- NOTE | 2024-04-21 17:54 | PTCARENOTE ---
Remains drowsy awakens easily, coherant. Incontinent large amt urine and liq stool. Remains on 5L NC sao2 87-93% with encouraged C/DB. Turning q2. Insulin coverage given accu check 371. NPO. Oral care given.
[2024-04-21] MEDS: METAMUCIL, KONSYL PO (20:21)
--- NOTE | 2024-04-21 21:30 | PTCARENOTE ---
pt received from previous RN. pt sleeping, drowsy, awakens and opens eyes to verbal stimuli. Soft spoken. Pt kept strict NPO. no current nausea. currently denies abd pain. oral care provided. pt placed on HS bipap by RT. sat 96%. Assessment as
documented. call light in reach.
[2024-04-21 21:34] LABS: Glucose - Point of Care 311 mg/dl (70-99)
[2024-04-22] VITALS (14 sets, daily range): BP systolic 123–155; BP diastolic 58–88; PULSE 69; O2SAT 94–96; BMI 34.4
[2024-04-22 00:05] LABS: Glucose - Point of Care 292 mg/dl (70-99)
[2024-04-22] MEDS: ZOSYN 50 IV ×2 (01:00→06:49)
[2024-04-22] MEDS: DECADRON 4 MG IV ×3 (05:11→20:38)
[2024-04-22 05:33] LABS: % Basophils 0.1 % (0-2); % Immature Granulocytes 0.5 % (0-0.5); % Lymphocytes 9.9 % (20.5-51.1); % Monocytes 3.7 % (1.7-9.3); % Neutrophils 85.8 % (42.2-75.2); Absolute Immature Granulocytes 0.1 10^3/uL (0-0.05); Absolute Lymphocytes 1.1 10^3/uL (1.2-3.4); Absolute Monocytes 0.4 10^3/uL (0.1-0.6); Absolute Neutrophils 9.8 10^3/uL (1.4-6.5); Hematocrit 43.4 % (39.0-52.0); Hemoglobin 14.2 g/dL (13.0-18.0); Mean Corp Hgb Conc. 32.7 g/dL (33.0-37.0); Mean Corpuscular Hgb 32.3 pg (27.0-31.0); Mean Corpuscular Volume 98.6 fL (80.0-94.0); Mean Platelet Volume 10.1 fL (7.4-10.4); Nucleated Red Blood Cells % 0 % (-); Platelet Count 181 10^3/uL (130-400); Red Cell Dist. Width 13.3 % (11.5-14.5); White Blood Cell Count 11.5 10^3/uL (4.8-10.8)
[2024-04-22 05:50] LABS: ALT (SGPT) 23 U/L (0-50); AST (SGOT) 35 U/L (17-59); Albumin 3.8 g/dl (3.5-5.0); Alkaline Phosphatase 64 U/L (38-126); Blood Urea Nitrogen 35 mg/dl (9-20); Calcium 8.2 mg/dl (8.4-10.2); Carbon Dioxide 27 mmol/L (22-30); Chloride 99 mmol/L (98-107); Estimated Creatinine Clearance 57 ml/min; Glucose 334 mg/dl (70-99); Magnesium 2.6 mg/dl (1.6-2.3); Potassium 4.3 mmol/L (3.5-5.1); Sodium 137 mmol/L (135-145); Total Bilirubin 1.5 mg/dl (0.2-1.3); Total Protein 6.5 g/dl (6.3-8.2); eGFR 58.53
[2024-04-22 06:34] LABS: Glucose - Point of Care 317 mg/dl (70-99)
[2024-04-22] MEDS: LYRICA PO (08:55)
[2024-04-22] MEDS: HIPREX PO (08:55)
[2024-04-22] MEDS: NOVOLOG FLEXPEN-HIGH RESISTANCE SC (08:55)
[2024-04-22] MEDS: MUCINEX PO (08:55)
[2024-04-22] MEDS: ELIQUIS PO (08:55)
[2024-04-22] MEDS: TAMIFLU PO (08:56)
[2024-04-22] MEDS: OCUVITE SOFTGEL PO (08:56)
[2024-04-22] MEDS: VITAMIN C PO (08:56)
[2024-04-22] MEDS: VISBIOME PO (08:56)
--- NOTE | 2024-04-22 09:05 | W.PN.HOSP.TC ---
Today's Communication/Plan
-
keep in IMU for now
stop IV zosyn
taper IV steroids
O2 as needed
speech eval
Assessment / Plan
Assessment / Plan
pt is an 88 year old male
acute hypoxemic resp failure--due to combination of influenza A + and aspiration (pneumonitis most likely, no pna on CXR)--keep in IMU for now, reassess later--was on room air 84%, placed back on O2--apprec pulm--cont tamiflu, incentive spirometer,
taper IV steroids and can stop IV abx
colonic ileus--likely cause of n/v--nursing reports moving bowels--consider rechecking abdominal x-ray--OOB, PT/OT
Type 2 diabetes--cont metformin, Januvia as able--Insulin sliding scale--Continue Lantus as able--blood sugars running high, will be higher with addition of steroids--await speech eval
paroxysmal Atrial fibrillation--Continue Eliquis
Essential hypertension--not on home meds?
Obesity--affects all aspects of care
Pulmonary nodules--noted
History of TIA/CVA--noted
Hypercholesterolemia
Obstructive sleep apnea--cont CPAP
BPH--Continue tamsulosin, finasteride
GERD--continue Protonix
code status --Full code
DVT prophylaxis�Eliquis
Anticipated Discharge: > 48 hours
Subjective/Interval History
-
Date of Service: April 22, 2024
pt talking about hospital biscuits and told RN that it was 1978--O2 sat on room air 84%
Objective Data
-
Labs:
Laboratory Results
04/22/24
04:50
WBC 11.5 H
Hgb 14.2
Hct 43.4
Plt Count 181
Sodium 137
Potassium 4.3
Chloride 99
Carbon Dioxide 27
BUN 35 H
Creatinine 1.2
Glucose 334 H
Calcium 8.2 L
Total Bilirubin 1.5 H
AST 35
ALT 23
Alkaline Phosphatase 64
Vital Signs:
max temp for 24 hours
04/21/24
15:45
Temp 99 F
Vital Signs
Temp Pulse Resp BP Pulse Ox
97.4 F 69 16 135/58 96
04/22/24 07:25 04/22/24 07:00 04/22/24 07:00 04/22/24 06:00 04/22/24 07:00
I&O
04/21/24 04/22/24 04/23/24
06:59 06:59 06:59
Intake Total 480 / 480 100 / 100
Balance 480 / 480 100 / 100
Review of Systems
-
Unable to obtain full review of systems at this time due to: Other (confusion)
Physical Exam
-
General: Well Developed, Well Nourished and No Apparent Distress
HEENT: Normocephalic and Atraumatic; Negative Oxygen
Respiratory: Clear to Auscultation; Negative Wheezes, Rales or Rhonchi
Cardiac: Regular Rhythm and S1/S2; Negative Murmur
GI: Soft, Nontender and Distended; Negative Normal Bowel Sounds (tympanitic)
Musculoskeletal: No Clubbing, No Cyanosis and No Edema
Neuro: Awake
[2024-04-22 09:52] LABS: Glucose - Point of Care 319 mg/dl (70-99)
--- NOTE | 2024-04-22 09:54 | CM ---
Sleepy forgetful patient who lives with his Cely at [facility] independent living but is assisted by . He is assisted all activities of daily living.He uses a walker and scooter.Spoke with she is also ill at home.Pt will continue to
see him . OT is to see him too.
[facility] history
Pharmacy [address] or [facility]
PCP DR Tapia
PLAN Will need PT OT evals posable SNF
[2024-04-22] MEDS: HUMULIN N KWIKPEN 80 UNITS SC ×2 (09:57→18:04)
[2024-04-22] MEDS: REFRESH EYE DROPS (PF) 1 DROPS BOTH EYES ×2 (09:57→20:38)
[2024-04-22] MEDS: NOVOLOG FLEXPEN-HIGH RESISTANCE 10 UNITS SC ×2 (10:03→11:58)
[2024-04-22 10:41] LABS: Glycohemoglobin (HgbA1c) 7.6 % (4.0-5.6)
--- NOTE | 2024-04-22 10:58 | PTOTSP ---
Speech Pathology Follow Up
Pt continues to exhibit acute on chronic signs of oropharyngeal dysphagia. Aspiration risk is increased 2/2 flu symptoms, xerostomia, tenuous respiratory status, COPD, and known history of dysphagia.
Recommend:
1. Trial Minced and Moist (IDDSI 5), mildly thick liquid (IDDSI 2)
2. Meds crushed in puree
3. Safe swallowing strategies: Partial assistance, full supervision, small bites, single sips, slow rate
4. Reflux precautions
5. Aspiration precautions
6. ASSET RECOVERY SPECIALIST to follow re: assess diet tolerance and determine if repeat VSE warranted
[2024-04-22 12:02] LABS: Glucose - Point of Care 327 mg/dl (70-99)
--- NOTE | 2024-04-22 15:57 | W.PN.PUL3 ---
Today's Communication / Plan
-
Discontinue Zosyn
Continue Tamiflu
Aspiration precautions
Continue with IV steroids
CPAP at night
Assessment
-
88-year-old male with history of diabetes, sleep apnea, atrial fibrillation who lives in [facility], presents with few days of URI symptoms found to have influenza A. Developed episode of emesis with possible aspiration event, increased
respiratory distress, increased oxygen requirement transferred to IMU
Acute hypoxic respiratory insufficiency requiring 5 L
93%
Acute influenza A
URI symptoms x 3 days
Leukocytosis
Conditions present prior to admission
History of CHF
Obstructive sleep apnea on CPAP
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
Hypertension/hyperlipidemia
GERD
Atrial fibrillation on anticoagulation
Chronic rhinitis
Obesity
History of nodules
Plan/recommendations
Patient appears to be comfortable
95% on room air during my evaluation. 84% noted later in the day
Episode of emesis associated with increased respiratory distress, hypoxia noted
Chest exam is clear
Chest x-ray is unremarkable
Patient is without complaints
Moving forward
Continue with supportive care
Remains on Tamiflu.
Agree with discontinuing Zosyn therapy
Head of bed elevated, aspiration precautions
Continue Eliquis therapy
Will order CPAP therapy. Patient uses CPAP pressure of 13, tolerated well overnight
Reviewed with primary service
Subjective Data
-
Date of Service:
Date of Service: April 22, 2024
Subjective:
Patient seen and examined earlier this morning, late entry. During my evaluation, patient was off oxygen. 95% at that time, denies shortness of breath, chest pain, cough
Objective Data
Data Reviewed
Vital Signs / I&O / Oxygen:
Vital Signs
Temp Pulse Resp BP Pulse Ox
98.0 F 70 19 145/86 93
04/22/24 11:15 04/22/24 10:00 04/22/24 10:00 04/22/24 10:00 04/22/24 11:44
Intake and Output
04/21/24 04/22/24 04/23/24
06:59 06:59 06:59
Intake Total 480 / 480 100 / 100
Balance 480 / 480 100 / 100
SaO2 93
Nasal Cannula flow liters per 3
minute
Physical Exam
General: Comfortable
HEENT: Normocephalic, Anicteric and Other (Large neck)
Cardiovascular: S1-S2, Regular Rhythm, Murmur (n) and Rub (n)
Respiratory: Wheeze (n), Crackles (n), Rhonchi (n) and Non-Labored Respirations
GI: Soft, Non Distended (Obese) and Non Tender
Neurology: Awake, Alert and No Motor Deficits
Skin: Cyanosis (n), Jaundice (n) and Rash (n)
Labs/Micro/Reports
Lab Data
04/22/24 04:50
04/22/24 04:50
Microbiology
04/21/24 06:04 Nose MRSA Screen - Final
No Methicillin Resistant Staphylococcus aureus isolated.
04/20/24 10:33 Nasal Swab Influenza Types A & B (GUALBERTO) - Final
Influenza A Positive, NAAT
--- NOTE | 2024-04-22 16:57 | PTCARENOTE ---
Pt incontinent of large liquid bowel movements throughout the day. Rectal area raw and excoriated; barrier cream applied. Yris care completed. D/w Dr. Hilario; okay to place rectal trumpet. Rectal trumpet placed with large amount of gas expressed
and liquid stool.
[2024-04-22] MEDS: NOVOLOG FLEXPEN-HIGH RESISTANCE 7 UNITS SC (18:05)
[2024-04-22 18:11] LABS: Glucose - Point of Care 261 mg/dl (70-99)
[2024-04-22] MEDS: PROSCAR 5 MG PO (18:11)
[2024-04-22] MEDS: FLOMAX 0.4 MG PO (18:11)
[2024-04-22] MEDS: HIPREX 1 GRAM PO (20:38)
[2024-04-22] MEDS: MUCINEX 600 MG PO (20:38)
[2024-04-22] MEDS: TAMIFLU 75 MG PO (20:38)
[2024-04-22] MEDS: VITAMIN C 500 MG PO (20:38)
[2024-04-22] MEDS: ELIQUIS 5 MG PO (20:38)
[2024-04-22 23:00] LABS: Glucose - Point of Care 281 mg/dl (70-99)
[2024-04-23] VITALS (12 sets, daily range): BP systolic 94–162; BP diastolic 42–88; PULSE 65–66
[2024-04-23 04:20] LABS: Hematocrit 40.3 % (39.0-52.0); Hemoglobin 13.9 g/dL (13.0-18.0); Mean Corp Hgb Conc. 34.5 g/dL (33.0-37.0); Mean Corpuscular Hgb 32.9 pg (27.0-31.0); Mean Corpuscular Volume 95.3 fL (80.0-94.0); Platelet Count 188 10^3/uL (130-400); Red Blood Cell Count 4.23 10^6/uL (4.70-6.10); Red Cell Dist. Width 13.2 % (11.5-14.5); White Blood Cell Count 10.5 10^3/uL (4.8-10.8)
[2024-04-23 04:49] LABS: Blood Urea Nitrogen 38 mg/dl (9-20); Calcium 8.4 mg/dl (8.4-10.2); Carbon Dioxide 23 mmol/L (22-30); Chloride 107 mmol/L (98-107); Estimated Creatinine Clearance 76 ml/min; Glucose 262 mg/dl (70-99); Magnesium 2.6 mg/dl (1.6-2.3); Potassium 4.1 mmol/L (3.5-5.1); Sodium 138 mmol/L (135-145); eGFR > 60.00
[2024-04-23] MEDS: OMNIPAQUE 50 ML PO (05:49)
[2024-04-23] MEDS: OCUVITE SOFTGEL PO (08:20)
[2024-04-23] MEDS: MUCINEX PO (08:20)
[2024-04-23 08:50] LABS: Glucose - Point of Care 236 mg/dl (70-99)
--- NOTE | 2024-04-23 09:34 | W.PN.PUL3 ---
Today's Communication / Plan
-
Continue Tamiflu
Aspiration precautions
Continue with IV steroids and wean as tolerated
CPAP at night
Monitor wheezing
If patient spikes fever then would consider restarting antibiotic
Assessment
-
88-year-old male with history of diabetes, sleep apnea, atrial fibrillation who lives in [facility], presents with few days of URI symptoms found to have influenza A. Developed episode of emesis with possible aspiration event, increased
respiratory distress, increased oxygen requirement transferred to IMU
Impression:
Acute hypoxic respiratory insufficiency requiring 5 L, now on 2L/min
Acute influenza A
URI symptoms x 3 days
Leukocytosis - now resolved
Conditions present prior to admission
History of CHF
Obstructive sleep apnea on CPAP
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
Hypertension/hyperlipidemia
GERD
Atrial fibrillation on anticoagulation
Chronic rhinitis
Obesity
History of nodules
Plan/recommendations
Patient appears to be comfortable
Episode of emesis associated with increased respiratory distress, hypoxia noted
Wheezing today on my exam
Chest x-ray is unremarkable, however there are small nodular branching opacities in the lower lobes seen on the lung bases from CT abdomen/pelvis today
Continue to monitor off antibiotics considering that he is improving now with normal WBC and afebrile with improving oxygen requirements
Patient's main complaint today is a cough
Continue with systemic steroids, currently on Decadron 4 mg IV q12hr, and wean as he clinically improves
Moving forward
Continue with supportive care
Remains on Tamiflu.
s/p zosyn (given 04/21 - 04/22/2024)
Head of bed elevated, aspiration precautions
Continue Eliquis therapy
Continue CPAP with sleep, currently at [id number]
Reviewed with primary service
Pulmonary service will continue to follow along
Total time spent today was 37 minutes for this encounter. Time includes reviewing laboratory test/imaging results, reviewing pertinent medical records, obtaining and reviewing medical history, performing an appropriate exam, ordering medications,
tests and procedures. Time also includes documentation of this encounter, coordinating patient care and communicating with other healthcare professionals. Total time does not include separately billed tests performed on this date of service.
Subjective Data
-
Date of Service:
Date of Service: April 23, 2024
Chief Complaint: Pulmonary Follow Up
Subjective:
Patient seen and evaluated today at bedside. Endorsing cough, denying shortness of breath. Currently, heart rate 60, BP 139/78 and saturating 95% on 2 L/min nasal cannula. No acute events reported overnight. Currently denies chest pain, RENNER,
Connor pain, nausea, fevers or chills.
Review of Systems
General: Other (Negative unless mentioned above)
Objective Data
Data Reviewed
Vital Signs / I&O / Oxygen:
Vital Signs
Temp Pulse Resp BP Pulse Ox
98.1 F 63 14 143/79 96
04/23/24 07:45 04/23/24 07:00 04/23/24 07:00 04/23/24 04:00 04/23/24 08:29
Intake and Output
04/22/24 04/23/24 04/24/24
06:59 06:59 06:59
Intake Total 100 / 100 120 / 120
Balance 100 / 100 120 / 120
SaO2 96
Nasal Cannula flow liters per 3
minute
Physical Exam
General: Respiratory Distress (n), Comfortable, Chills (n) and Sweats (n)
HEENT: Normocephalic, Anicteric and Other (thick neck)
Cardiovascular: S1-S2, Regular Rhythm, Murmur (n), Rub (n) and Peripheral Edema (n)
Respiratory: Wheeze (Bilaterally heard upon expiration), Crackles (n), Rhonchi (n) and Non-Labored Respirations
GI: Soft, Non Distended (Obese) and Non Tender
Neurology: Awake, Alert and Tremors (n)
Skin: Warm, Dry, Cyanosis (n), Jaundice (n) and Rash (n)
Labs/Micro/Reports
Lab Data
04/23/24 04:01
04/23/24 04:01
Microbiology
04/21/24 06:04 Nose MRSA Screen - Final
No Methicillin Resistant Staphylococcus aureus isolated.
04/20/24 10:33 Nasal Swab Influenza Types A & B (GUALBERTO) - Final
Influenza A Positive, NAAT
[2024-04-23] MEDS: LYRICA 25 MG PO (10:46)
[2024-04-23] MEDS: REFRESH EYE DROPS (PF) 1 DROPS BOTH EYES ×2 (10:46→19:49)
[2024-04-23] MEDS: DECADRON 4 MG IV ×2 (10:46→22:36)
[2024-04-23] MEDS: VITAMIN C 500 MG PO ×2 (10:46→19:49)
[2024-04-23] MEDS: VISBIOME 1 CAP PO (10:46)
[2024-04-23] MEDS: ELIQUIS 5 MG PO ×2 (10:46→19:49)
[2024-04-23] MEDS: TAMIFLU 75 MG PO ×2 (10:47→19:52)
[2024-04-23] MEDS: HIPREX 1 GRAM PO ×2 (10:47→19:49)
[2024-04-23 10:51] LABS: Glucose - Point of Care 250 mg/dl (70-99)
[2024-04-23] MEDS: NOVOLOG FLEXPEN-HIGH RESISTANCE 7 UNITS SC ×2 (10:53→18:21)
[2024-04-23] MEDS: HUMULIN N KWIKPEN 80 UNITS SC ×2 (10:54→18:22)
--- NOTE | 2024-04-23 11:44 | WOUNDNOTE ---
PENIS TIP (foreskin retracted during skin check/skin care)
--- NOTE | 2024-04-23 11:46 | WOUNDNOTE ---
MARCI ANAL SKIN
--- NOTE | 2024-04-23 11:46 | WOUNDNOTE ---
R 4TH TOENAIL
--- NOTE | 2024-04-23 11:48 | WOUNDNOTE ---
WO RN note: Patient admitted with flu. Patient lives in independent living at [facility] with his .
See H&P for complete history.
PMH: Obesity, DM, HTHn, pulmonary nodules, TIA/CVA, sleep apnea/CPAP, lumbar laminectomy, a fib (Eliquis), BPH.
Wound Location and type/assessment: Patient admitted with: MASD penis tip (penis retracted), R groin MASD, Perianal MASD along with blanchable purple skin (reported by nursing as much improved since admission, he currently has a rectal trumpet).
Scabbed scratch almendarez R anterior ankle and L upper vogel. R 4th toenail with dried blood.
Appetite: good.
Pressure redistribution devices in place: Centrella Max air bed. Patient assists with turning in bed.
Plan: Barrier ointment applied to penis, R groin, perianal affected areas. Patient turned to L 30 degree lateral turning position with help from [facility]. Heels off bed with air chair cushion. t/c SPD and ordered a bariatric air chair cushion.
Discussed with DION Orr who will pad rectal trumpet and drainage tubing port with an ABD pad.
Will confirm orders with Dr. Hilario.
Care plan to be updated and will follow as needed.
Note to case management requested for discharge: VN if goes home.
[2024-04-23 13:14] LABS: Glucose - Point of Care 189 mg/dl (70-99)
[2024-04-23] MEDS: NOVOLOG FLEXPEN-HIGH RESISTANCE 2 UNITS SC (13:19)
--- NOTE | 2024-04-23 14:12 | PTOTSP ---
ST Follow-Up
Pt continues to present with clinical signs of mild to moderate oropharyngeal dysphagia characterized by prolonged mastication and bolus formation as well as coughing with both solid and liquid ingestion. Pt's risk for aspiration is elevated given
his impulsivity as well as his poor recall and consistency of implementation of compensatory strategies.
Recommendations:
- UPGRADE diet to SOFT BITE SIZED SOLIDS and continue with MILDLY THICK LIQUIDS and meds crushed in puree.
- Aspiration precautions: HOB upright for all PO intake; encourage pt to take small bites, small sips, alternate bites/sips, eat/drink slowly.
- ART THERAPIST to f/u re: diet tolerance, to trial further diet upgrades, and to determiner if pt would benefit from an instrumental swallow study.
--- NOTE | 2024-04-23 14:58 | W.PN.HOSP.TC ---
Addendum entered and electronically signed by Charline Hilario MD 04/23/24 20:08:
I saw and evaluated the patient independently. I reviewed the resident�s note and agree with findings and plan as documented by Dr. Lockwood.
GENERAL: well developed, well nourished, male in no apparent distress
HEENT:NC AT--O2 NC in place
HEART: regular rate and rhythm, +S1, +S2
LUNGS : clear to auscultation bilaterally
ABDOM: soft, nontender, distended and tympanitic + bowel sounds
EXT: no cyanosis, clubbing, or edema
NEUROLOGIC: grossly intact
acute hypoxemic resp failure--due to combination of influenza A + and aspiration (pneumonitis most likely, no pna on CXR)----was on room air 84%, placed back on O2, wean as able and if needed will assess for home O2--apprec pulm--cont tamiflu,
incentive spirometer, taper IV steroids and can stop IV abx
colonic ileus--likely cause of n/v--nursing reports moving bowels--CT scan with ileus no obstruction, no volvulus--OOB, PT/OT
Type 2 diabetes--cont metformin, Januvia as able--Insulin sliding scale--Continue Lantus as able--blood sugars running high, will be higher with addition of steroids--diabetic diet as per speech
paroxysmal Atrial fibrillation--Continue Eliquis
Essential hypertension--not on home meds?
Obesity--affects all aspects of care
Pulmonary nodules--noted
History of TIA/CVA--noted
Hypercholesterolemia
Obstructive sleep apnea--cont CPAP
BPH--Continue tamsulosin, finasteride
GERD--continue Protonix
code status --Full code
DVT prophylaxis�Eliquis
Original Note:
Today's Communication/Plan
-
Downgrade to telemetry
Allow low residue diet
Assessment / Plan
Assessment / Plan
Impression
Patient is an 88 year old male admitted for generalized weakness, cough, sore throat for 3 days, found to have influenza A and had an episode of emesis resulting in aspiration and worsening of breathing function prompting the admission to IMU.
Patient evaluated for colonic ileus and obstruction given distended abdomen with tympanic percussion note, and obstruction series showed probable colonic ileus without overt obstruction.
Colonic ileus
Nausea vomiting and tympanic noted on abdominal percussion
CT abdomen/pelvis April 23, 2024
IMPRESSION: Small nodular opacities within both lower lobes of the lungs, suggesting small airway pneumonitis in this patient with history of influenza. There are also linear densities within both lower lungs, which is likely atelectasis.
Stable small nodular opacities within the periphery of the right lower lung, as well as increased interstitial markings, suggesting changes of interstitial fibrosis.
Coronary artery calcifications. Please correlate with symptoms of and risk factors for coronary artery disease, with further workup as clinically appropriate.
Mild gaseous distention of the transverse colon and the sigmoid colon. No evidence for bowel obstruction or free intraperitoneal air. No significant bowel wall thickening is evident.
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
Subtle stranding of the fat adjacent to the tail the pancreas, suggesting the possibility of pancreatitis. No evidence of a focal collection.
Diffuse fatty infiltration of the liver.
Small bilateral nephroliths. 2.2 cm stable hyperdense cyst arising exophytically from the anterior left mid kidney.
Since patient has no obstruction, patient allowed low residue diet
Curbside GI to ask their opinion about the colonic ileus
Acute hypoxemic resp failure-secondary to influenza A and aspiration (pneumonitis most likely, no pna on CXR)
Patient is on 2 L of oxygen
Chest clear
Pulmonology consult appreciated-cont tamiflu, incentive spirometer, taper IV steroids
Other medical conditions
Type 2 diabetes--cont metformin, Januvia as able--Insulin sliding scale--Continue Lantus as able--blood sugars running high, will be higher with addition of steroids--await speech eval
paroxysmal Atrial fibrillation--Continue Eliquis
Essential hypertension--not on home meds?
Obesity--affects all aspects of care
Pulmonary nodules--noted
History of TIA/CVA--noted
Hypercholesterolemia
Obstructive sleep apnea--cont CPAP
BPH--Continue tamsulosin, finasteride
GERD--continue Protonix
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 Scabbed scratch almendarez R
anterior ankle and L upper vogel. R 4th toenail with dried blood.
code status --Full code
DVT prophylaxis�Eliquis
Anticipated Discharge: 24 - 48 hours
Subjective/Interval History
-
Date of Service: April 23, 2024
Patient still has abdominal distention, but denies any nausea/vomiting and is tolerating oral diet
Objective Data
-
Labs:
Laboratory Results
04/23/24
04:01
WBC 10.5
Hgb 13.9
Hct 40.3
Plt Count 188
Sodium 138
Potassium 4.1
Chloride 107
Carbon Dioxide 23
BUN 38 H
Creatinine 0.9
Glucose 262 H
Calcium 8.4
Vital Signs:
Vital Signs
Temp Pulse Resp BP Pulse Ox
98.1 F 57 18 131/58 96
04/23/24 07:45 04/23/24 12:00 04/23/24 12:00 04/23/24 12:00 04/23/24 11:00
I&O
04/22/24 04/23/24 04/24/24
06:59 06:59 06:59
Intake Total 100 / 100 120 / 120
Balance 100 / 100 120 / 120
Review of Systems
-
All other systems: Reviewed and negative
Physical Exam
-
General: Well Developed, Well Nourished and Obese (BMI 34.4)
HEENT: Normocephalic, Atraumatic and Oxygen (On 2 L of oxygen)
Respiratory: Clear to Auscultation
Cardiac: Regular Rhythm and S1/S2
GI: Soft and Distended (Tympanic percussion note)
Musculoskeletal: No Clubbing, No Cyanosis and No Edema
Skin: Warm and Dry
Neuro: Awake and Oriented
Psych: Calm
--- NOTE | 2024-04-23 16:05 | CM ---
CM spoke with Columba at [facility]'s choice, no beds currently available at [facility]. CM will reach out to family to review options for other referrals.
Plan; SNF
[2024-04-23 17:49] LABS: Glucose - Point of Care 290 mg/dl (70-99)
--- NOTE | 2024-04-23 18:14 | PTCARENOTE ---
Pt presents as assessed. Aox1-2. No acute events throughout the day. Q2T maintained. Bed alarm in place for safety. See worklist for full assessment.
[2024-04-23] MEDS: PROSCAR 5 MG PO (18:21)
[2024-04-23] MEDS: FLOMAX 0.4 MG PO (18:23)
[2024-04-23] MEDS: METAMUCIL, KONSYL 0.5 PACKET PO (19:50)
[2024-04-23] MEDS: MUCINEX 600 MG PO (19:50)
[2024-04-24] VITALS (9 sets, daily range): BP systolic 147–185; BP diastolic 65–99; PULSE 57–61; BMI 34.7
[2024-04-24 07:37] LABS: Glucose - Point of Care 221 mg/dl (70-99)
[2024-04-24] MEDS: MUCINEX 600 MG PO ×2 (09:01→19:28)
[2024-04-24] MEDS: NOVOLOG FLEXPEN-HIGH RESISTANCE 4 UNITS SC (09:01)
[2024-04-24] MEDS: OCUVITE SOFTGEL 1 CAP PO (09:01)
[2024-04-24] MEDS: HUMULIN N KWIKPEN 80 UNITS SC ×2 (09:08→18:00)
[2024-04-24] MEDS: VISBIOME 1 CAP PO (09:12)
[2024-04-24] MEDS: REFRESH EYE DROPS (PF) 1 DROPS BOTH EYES ×2 (09:12→19:29)
[2024-04-24] MEDS: ELIQUIS 5 MG PO ×2 (09:12→19:28)
--- NOTE | 2024-04-24 09:12 | W.PN.PUL3 ---
Addendum entered and electronically signed by Nish Santos MD 04/25/24 02:36:
Patient was seen and evaluated on 04/24/2024
Original Note:
Today's Communication / Plan
-
Continue Tamiflu
Aspiration precautions
Transition to prednisone tomorrow, 40mg, reducing by 10mg every 4th day until off
Start LABA/ICS with Symbicort; DC home with symbicort or its equivalent
CPAP at night
Monitor wheezing
If patient spikes fever then would consider restarting antibiotic
Pulmonary service will continue to follow along. Outpatient office follow up with Dr. Lucas (last visit 11/03/2023)
Assessment
-
88-year-old male with history of diabetes, sleep apnea, atrial fibrillation who lives in [facility], presents with few days of URI symptoms found to have influenza A. Developed episode of emesis with possible aspiration event, increased
respiratory distress, increased oxygen requirement transferred to IMU
Impression:
Acute hypoxic respiratory insufficiency requiring 5 L, now on RA as of 04/24/2024
Acute influenza A
URI symptoms x 3 days
Leukocytosis - now resolved
Conditions present prior to admission
History of CHF
Obstructive sleep apnea on CPAP
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
Hypertension/hyperlipidemia
GERD
Atrial fibrillation on anticoagulation
Chronic rhinitis
Obesity
History of nodules
Plan/recommendations
Patient appears to be comfortable, and is now on room air breathing comfortably
Episode of emesis associated with increased respiratory distress, hypoxia noted
Wheezing now resolved as of exam on 04/24/2024
Chest x-ray is unremarkable, however there are small nodular branching opacities in the lower lobes seen on the lung bases from CT abdomen/pelvis 04/23/2024
Continue to monitor off antibiotics considering that he is improving now with normal WBC and afebrile with improving oxygen requirements
Patient's main complaint on 04/23 was a cough --> this has improved; continue to monitor
Continue with systemic steroids, currently on Decadron 4 mg IV q12hr --> tomorrow start prednisone taper starting at 40mg and reducing by 10mg every 4th day until off
Given his cough in setting of flu, he should also be started and discharged home on a LABA/ICS --> will start Symbicort 160mcg while hospitalized, and DC home with same inhaler (if approved by his insurance; otherwise can prescribe an equivalent
inhaler)
Moving forward
Continue with supportive care
Remains on Tamiflu.
s/p zosyn (given 04/21 - 04/22/2024)
Head of bed elevated, aspiration precautions
Continue Eliquis therapy
Continue CPAP with sleep, currently at [id number]
Reviewed with primary service
Pulmonary service will continue to follow along
Total time spent today was 36 minutes for this encounter. Time includes reviewing laboratory test/imaging results, reviewing pertinent medical records, obtaining and reviewing medical history, performing an appropriate exam, ordering medications,
tests and procedures. Time also includes documentation of this encounter, coordinating patient care and communicating with other healthcare professionals. Total time does not include separately billed tests performed on this date of service.
Subjective Data
-
Date of Service:
Date of Service: April 24, 2024
Chief Complaint: Pulmonary Follow Up
Subjective:
Pt was seen on AM of 04/24/2024 - late note entry. He is currently on room air breathing comfortably. He denies SOB currently or cough. Feels like he is improving. Denies RENNER, abd pain, N/V/f/c.
Review of Systems
General: Other (negative unless mentioned above)
Objective Data
Data Reviewed
Vital Signs / I&O / Oxygen:
Vital Signs
Temp Pulse Resp BP Pulse Ox
98.0 F 61 24 185/99 100
04/24/24 07:25 04/24/24 09:23 04/24/24 07:25 04/24/24 09:23 04/24/24 07:25
Intake and Output
04/23/24 04/24/24 04/25/24
06:59 06:59 06:59
Intake Total 120 / 120 600 / 600
Balance 120 / 120 600 / 600
SaO2 100
Nasal Cannula flow liters per 3
minute
Physical Exam
General: Respiratory Distress (n), Comfortable, Chills (n) and Sweats (n)
HEENT: Normocephalic, Anicteric and Other (thick neck)
Cardiovascular: S1-S2, Regular Rhythm, Murmur (n), Rub (n) and Peripheral Edema (n)
Respiratory: Wheeze (negative), Crackles (bibasilar), Rhonchi (n) and Non-Labored Respirations
GI: Soft, Non Distended (Obese), Non Tender and Normal Bowel Sounds
Neurology: AO x 3 and Tremors (n)
Skin: Warm, Dry, Cyanosis (n), Jaundice (n) and Rash (n)
Labs/Micro/Reports
Microbiology
04/21/24 06:04 Nose MRSA Screen - Final
No Methicillin Resistant Staphylococcus aureus isolated.
[2024-04-24] MEDS: APRESOLINE 10 MG IV ×2 (09:23→19:39)
[2024-04-24] MEDS: VITAMIN C 500 MG PO ×2 (09:23→19:28)
[2024-04-24] MEDS: TAMIFLU 75 MG PO ×2 (09:23→19:28)
[2024-04-24] MEDS: DECADRON 4 MG IV ×2 (09:24→21:22)
[2024-04-24 10:46] LABS: % Basophils 0.1 % (0-2); % Eosinophils 0.1 % (0-6); % Immature Granulocytes 0.6 % (0-0.5); % Lymphocytes 20.3 % (20.5-51.1); % Monocytes 5.4 % (1.7-9.3); % Neutrophils 73.5 % (42.2-75.2); Absolute Immature Granulocytes 0.1 10^3/uL (0-0.05); Absolute Lymphocytes 1.9 10^3/uL (1.2-3.4); Absolute Monocytes 0.5 10^3/uL (0.1-0.6); Absolute Neutrophils 6.9 10^3/uL (1.4-6.5); Hematocrit 43.1 % (39.0-52.0); Hemoglobin 14.9 g/dL (13.0-18.0); Mean Corp Hgb Conc. 34.6 g/dL (33.0-37.0); Mean Corpuscular Hgb 33.1 pg (27.0-31.0); Mean Corpuscular Volume 95.8 fL (80.0-94.0); Nucleated Red Blood Cells % 0 % (-); Platelet Count 192 10^3/uL (130-400); White Blood Cell Count 9.4 10^3/uL (4.8-10.8)
[2024-04-24 10:58] LABS: Blood Urea Nitrogen 31 mg/dl (9-20); Calcium 8.2 mg/dl (8.4-10.2); Carbon Dioxide 27 mmol/L (22-30); Chloride 101 mmol/L (98-107); Estimated Creatinine Clearance 76 ml/min; Glucose 249 mg/dl (70-99); Magnesium 2.4 mg/dl (1.6-2.3); Potassium 4.2 mmol/L (3.5-5.1); Sodium 137 mmol/L (135-145); eGFR > 60.00
[2024-04-24] MEDS: LYRICA 25 MG PO (11:20)
[2024-04-24] MEDS: HIPREX 1 GRAM PO ×2 (11:20→19:28)
[2024-04-24 12:43] LABS: Glucose - Point of Care 345 mg/dl (70-99)
--- NOTE | 2024-04-24 14:10 | W.PN.HOSP.TC ---
Addendum entered and electronically signed by Charline Hilario MD 04/24/24 18:59:
I saw and evaluated the patient independently. I reviewed the resident�s note and agree with findings and plan as documented by Dr. Lockwood.
GENERAL: well developed, well nourished, male in no apparent distress
HEENT:NC AT--O2 NC in place
HEART: regular rate and rhythm, +S1, +S2
LUNGS : clear to auscultation bilaterally
ABDOM: soft, nontender, distended and tympanitic + bowel sounds
EXT: no cyanosis, clubbing, or edema
NEUROLOGIC: grossly intact
acute hypoxemic resp failure--due to combination of influenza A + and aspiration (pneumonitis most likely, no pna on CXR)----was on room air 84%, placed back on O2, wean as able and if needed will assess for home O2--apprec pulm--cont tamiflu,
incentive spirometer, taper IV steroids and can stop IV abx
colonic ileus--likely cause of n/v--nursing reports moving bowels--CT scan with ileus no obstruction, no volvulus--OOB, PT/OT--much improved today
Type 2 diabetes--cont metformin, Januvia as able--Insulin sliding scale--Continue Lantus as able--blood sugars running high, will be higher with addition of steroids--diabetic diet as per speech
paroxysmal Atrial fibrillation--Continue Eliquis
Essential hypertension--not on home meds?
Obesity--affects all aspects of care
Pulmonary nodules--noted
History of TIA/CVA--noted
Hypercholesterolemia
Obstructive sleep apnea--cont CPAP
BPH--Continue tamsulosin, finasteride
GERD--continue Protonix
Wound Location and type/assessment (POA)-- MASD penis tip (penis retracted), R groin MASD, Perianal MASD along with blanchable purple skin (reported by nursing as much improved since admission) Scabbed scratch almendarez R anterior ankle and L upper
vogel. R 4th toenail with dried blood--apprec wound care input
code status --Full code
DVT prophylaxis�Eliquis
Addendum entered and electronically signed by Romel Lockwood MD, Resident 04/24/24 16:44:
As per the speech pathologist,on f/u dysphagia session the recommendation is soft and bite sized solids and mildly thick liquids.He discussed the VSE with the patient and an order has been placed for 04/26/2024.Allowed to have ice chips and
sips of water between meals
Original Note:
Today's Communication/Plan
-
Restart home meds for diabetes
Add amlodipine for blood pressure
Assessment / Plan
Assessment / Plan
Impression
Patient is an 88 year old male admitted for generalized weakness, cough, sore throat for 3 days, found to have influenza A and had an episode of emesis resulting in aspiration and worsening of breathing function prompting the admission to IMU.
Patient evaluated for colonic ileus and obstruction given distended abdomen with tympanic percussion note, and obstruction series showed probable colonic ileus without overt obstruction.
#Colonic ileus
Nausea vomiting and tympanic noted on abdominal percussion
CT abdomen/pelvis April 23, 2024
IMPRESSION: Small nodular opacities within both lower lobes of the lungs, suggesting small airway pneumonitis in this patient with history of influenza. There are also linear densities within both lower lungs, which is likely atelectasis.
Stable small nodular opacities within the periphery of the right lower lung, as well as increased interstitial markings, suggesting changes of interstitial fibrosis.
Coronary artery calcifications. Please correlate with symptoms of and risk factors for coronary artery disease, with further workup as clinically appropriate.
Mild gaseous distention of the transverse colon and the sigmoid colon. No evidence for bowel obstruction or free intraperitoneal air. No significant bowel wall thickening is evident.
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
Subtle stranding of the fat adjacent to the tail the pancreas, suggesting the possibility of pancreatitis. No evidence of a focal collection.
Diffuse fatty infiltration of the liver.
Small bilateral nephroliths. 2.2 cm stable hyperdense cyst arising exophytically from the anterior left mid kidney.
Patient tolerating low residue diet,
Keep monitoring regular bowel movements, serum electrolytes and keep the patient moving around to help with the ileus.
# Essential hypertension
Patient has had consistently high blood pressure readings and this morning his blood pressure was 185 x 99 requiring a as needed dose of hydralazine 10 mg
Start amlodipine 5 mg daily and monitor blood pressure
#Acute hypoxemic resp failure-secondary to influenza A and aspiration (pneumonitis most likely, no pna on CXR)
Patient is on 2 L of oxygen
Chest clear
Pulmonology consult appreciated-cont tamiflu, incentive spirometer, taper IV steroids
Patient started on CPAP for GUILLERMO by pulmonology
Other medical conditions
Type 2 diabetes--cont metformin, Januvia as able--Insulin sliding scale--Continue Lantus as able--blood sugars running high, will be higher with addition of steroids--await speech eval
paroxysmal Atrial fibrillation--Continue Eliquis
Essential hypertension--not on home meds
Obesity--affects all aspects of care
Pulmonary nodules--noted
History of TIA/CVA--noted
Hypercholesterolemia
Obstructive sleep apnea--cont CPAP
BPH--Continue tamsulosin, finasteride
GERD--continue Protonix
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 Scabbed scratch almendarez R
anterior ankle and L upper vogel. R 4th toenail with dried blood.
Being treated with barrier ointment and healing okay
Patient given option about bed availability at [facility].
code status --Full code
DVT prophylaxis�Eliquis
Anticipated Discharge: 24 - 48 hours
Subjective/Interval History
-
Date of Service: April 24, 2024
Patient's blood pressure and blood glucose has been on the higher side, he is not on any home medications for blood pressure and is receiving steroids for respiratory insufficiency
Patient feels symptomatically better and is currently on room air with oxygen saturation of 96%
Objective Data
-
Labs:
Laboratory Results
04/24/24
10:09
WBC 9.4
Hgb 14.9
Hct 43.1
Plt Count 192
Sodium 137
Potassium 4.2
Chloride 101
Carbon Dioxide 27
BUN 31 H
Creatinine 0.9
Glucose 249 H
Calcium 8.2 L
Vital Signs:
Vital Signs
Temp Pulse Resp BP Pulse Ox
97.4 F 72 18 147/70 96
04/24/24 11:35 04/24/24 11:35 04/24/24 11:35 04/24/24 11:35 04/24/24 11:35
I&O
04/23/24 04/24/24 04/25/24
06:59 06:59 06:59
Intake Total 120 / 120 600 / 600
Balance 120 / 120 600 / 600
Review of Systems
-
All other systems: Reviewed and negative
Physical Exam
-
General: Well Developed, Well Nourished and Other (BMI 34.7)
HEENT: Normocephalic and Atraumatic
Respiratory: Clear to Auscultation
Cardiac: Regular Rhythm and S1/S2
GI: Soft, Nontender, Normal Bowel Sounds and Distended (Tympanitic)
Musculoskeletal: No Clubbing, No Cyanosis and No Edema
Skin: Warm and Dry
Neuro: Awake, Oriented and No Motor Deficits
[2024-04-24] MEDS: NOVOLOG FLEXPEN-HIGH RESISTANCE 10 UNITS SC (14:17)
--- NOTE | 2024-04-24 16:22 | CM ---
Patient seen at bedside with physician. Patient offered bed at [facility], patient not sure that he wants to go. CM spoke with patient about options of patient discharge. Patient also asked about referrals to [facility] but now is asking
for [facility]. CM left for Yoselin at [phone] [facility] liaison about plan for swallowing eval on and possible discharge pending bed availability. CM provided updated information of nursing station and CM will continue to follow for
discharge planning needs.
Plan; [facility] pending bed availability
[2024-04-24 16:49] LABS: Glucose - Point of Care 260 mg/dl (70-99)
[2024-04-24] MEDS: NORVASC 5 MG PO (17:59)
[2024-04-24] MEDS: NOVOLOG FLEXPEN-HIGH RESISTANCE 7 UNITS SC (17:59)
[2024-04-24] MEDS: JANUVIA 100 MG PO (17:59)
[2024-04-24] MEDS: FLOMAX 0.4 MG PO (18:00)
[2024-04-24] MEDS: PROSCAR 5 MG PO (18:01)
[2024-04-24 23:51] LABS: Glucose - Point of Care 222 mg/dl (70-99)
[2024-04-25] VITALS (7 sets, daily range): BP systolic 128–172; BP diastolic 53–91; PULSE 61
[2024-04-25 05:21] LABS: % Basophils 0.2 % (0-2); % Immature Granulocytes 0.8 % (0-0.5); % Lymphocytes 16.1 % (20.5-51.1); % Monocytes 6.1 % (1.7-9.3); % Neutrophils 76.8 % (42.2-75.2); Absolute Immature Granulocytes 0.1 10^3/uL (0-0.05); Absolute Lymphocytes 1.7 10^3/uL (1.2-3.4); Absolute Monocytes 0.7 10^3/uL (0.1-0.6); Absolute Neutrophils 8.3 10^3/uL (1.4-6.5); Hematocrit 41.9 % (39.0-52.0); Hemoglobin 14.6 g/dL (13.0-18.0); Mean Corp Hgb Conc. 34.8 g/dL (33.0-37.0); Mean Corpuscular Hgb 32.8 pg (27.0-31.0); Mean Corpuscular Volume 94.2 fL (80.0-94.0); Mean Platelet Volume 10.1 fL (7.4-10.4); Nucleated Red Blood Cells % 0 % (-); Platelet Count 196 10^3/uL (130-400); Red Blood Cell Count 4.45 10^6/uL (4.70-6.10); Red Cell Dist. Width 12.8 % (11.5-14.5); White Blood Cell Count 10.8 10^3/uL (4.8-10.8)
[2024-04-25 05:47] LABS: Blood Urea Nitrogen 33 mg/dl (9-20); Calcium 8.1 mg/dl (8.4-10.2); Carbon Dioxide 24 mmol/L (22-30); Chloride 100 mmol/L (98-107); Estimated Creatinine Clearance 76 ml/min; Glucose 243 mg/dl (70-99); Magnesium 2.4 mg/dl (1.6-2.3); Potassium 4.3 mmol/L (3.5-5.1); Sodium 135 mmol/L (135-145); eGFR > 60.00
[2024-04-25 07:28] LABS: Glucose - Point of Care 259 mg/dl (70-99)
[2024-04-25] MEDS: SYMBICORT 160/4.5 MCG INHALER 2 PUFF INH ×2 (07:53→21:05)
[2024-04-25] MEDS: GLUCOPHAGE XR EXTENDED RELEASE 500 MG PO (08:06)
[2024-04-25] MEDS: NOVOLOG FLEXPEN-HIGH RESISTANCE 7 UNITS SC (08:06)
[2024-04-25] MEDS: MUCINEX 600 MG PO ×2 (08:07→19:53)
[2024-04-25] MEDS: OCUVITE SOFTGEL 1 CAP PO (08:07)
[2024-04-25] MEDS: JANUVIA 100 MG PO (08:07)
[2024-04-25] MEDS: DELTASONE 40 MG PO (08:07)
[2024-04-25] MEDS: HIPREX 1 GRAM PO ×2 (08:07→19:53)
[2024-04-25] MEDS: REFRESH EYE DROPS (PF) 1 DROPS BOTH EYES ×2 (08:07→19:53)
[2024-04-25] MEDS: TAMIFLU 75 MG PO (08:08)
[2024-04-25] MEDS: NORVASC 5 MG PO (08:08)
[2024-04-25] MEDS: LYRICA 25 MG PO (08:09)
[2024-04-25] MEDS: ELIQUIS 5 MG PO ×2 (08:09→19:53)
[2024-04-25] MEDS: VITAMIN C 500 MG PO ×2 (08:09→19:53)
[2024-04-25] MEDS: HUMULIN N KWIKPEN 80 UNITS SC ×2 (08:09→17:51)
[2024-04-25] MEDS: VISBIOME 1 CAP PO (08:09)
[2024-04-25 11:58] LABS: Glucose - Point of Care 174 mg/dl (70-99)
[2024-04-25] MEDS: NOVOLOG FLEXPEN-HIGH RESISTANCE 2 UNITS SC (13:48)
--- NOTE | 2024-04-25 15:24 | W.PN.HOSP.TC ---
Addendum entered and electronically signed by Charline Hilario MD 04/25/24 16:13:
I saw and evaluated the patient independently. I reviewed the resident�s note and agree with findings and plan as documented by Dr. Lockwood.
GENERAL: well developed, well nourished, male in no apparent distress
HEENT:NC AT--O2 NC in place
HEART: regular rate and rhythm, +S1, +S2
LUNGS : clear to auscultation bilaterally
ABDOM: soft, nontender, distended and tympanitic + bowel sounds
EXT: no cyanosis, clubbing, or edema
NEUROLOGIC: grossly intact
waiting for VSE in AM--plan for d/c to SNF once obtained
acute hypoxemic resp failure--due to combination of influenza A + and aspiration (pneumonitis most likely, no pna on CXR)----on room air --apprec pulm--cont tamiflu, incentive spirometer, taper IV steroids and can stop IV abx
colonic ileus--likely cause of n/v--nursing reports moving bowels--CT scan with ileus no obstruction, no volvulus--OOB, PT/OT--much improved today
Type 2 diabetes--cont metformin, Januvia as able--Insulin sliding scale--Continue Lantus as able--blood sugars running high, will be higher with addition of steroids--diabetic diet as per speech
paroxysmal Atrial fibrillation--Continue Eliquis
Essential hypertension--not on home meds?
Obesity--affects all aspects of care
Pulmonary nodules--noted
History of TIA/CVA--noted
Hypercholesterolemia
Obstructive sleep apnea--cont CPAP
BPH--Continue tamsulosin, finasteride
GERD--continue Protonix
Wound Location and type/assessment (POA)-- MASD penis tip (penis retracted), R groin MASD, Perianal MASD along with blanchable purple skin (reported by nursing as much improved since admission) Scabbed scratch almendarez R anterior ankle and L upper
vogel. R 4th toenail with dried blood--apprec wound care input
code status --Full code
DVT prophylaxis�Eliquis
Original Note:
Today's Communication/Plan
-
Await swallowing studies
Monitor blood pressure and sugars
Assessment / Plan
Assessment / Plan
Impression
Patient is an 88 year old male admitted for generalized weakness, cough, sore throat for 3 days, found to have influenza A and had an episode of emesis resulting in aspiration and worsening of breathing function prompting the admission to IMU.
Patient evaluated for colonic ileus and obstruction given distended abdomen with tympanic percussion note, and obstruction series showed probable colonic ileus without overt obstruction. Patient has had bowel movements, serum electrolytes within
normal limits, Tamiflu course completed so patient shifted to [facility].
#Colonic ileus
Nausea vomiting and tympanic noted on abdominal percussion
CT abdomen/pelvis April 23, 2024
IMPRESSION: Small nodular opacities within both lower lobes of the lungs, suggesting small airway pneumonitis in this patient with history of influenza. There are also linear densities within both lower lungs, which is likely atelectasis.
Stable small nodular opacities within the periphery of the right lower lung, as well as increased interstitial markings, suggesting changes of interstitial fibrosis.
Coronary artery calcifications. Please correlate with symptoms of and risk factors for coronary artery disease, with further workup as clinically appropriate.
Mild gaseous distention of the transverse colon and the sigmoid colon. No evidence for bowel obstruction or free intraperitoneal air. No significant bowel wall thickening is evident.
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
Subtle stranding of the fat adjacent to the tail the pancreas, suggesting the possibility of pancreatitis. No evidence of a focal collection.
Diffuse fatty infiltration of the liver.
Small bilateral nephroliths. 2.2 cm stable hyperdense cyst arising exophytically from the anterior left mid kidney.
Patient evaluated by speech pathologist who suggested that he should be on soft and bite-size solids until he gets his swallowing study done on April
Keep monitoring regular bowel movements, serum electrolytes and keep the patient moving around to help with the ileus.
# Essential hypertension
Patient has had consistently high blood pressure readings
Start amlodipine 5 mg daily and monitor blood pressure
Blood pressure coming down and we anticipate that with steroid taper and amlodipine the blood pressure would be fine
#Acute hypoxemic resp failure-secondary to influenza A and aspiration (pneumonitis most likely, no pna on CXR)
Patient is on 2 L of oxygen, plan to wean him off oxygen
Chest clear
Pulmonology consult appreciated-cont tamiflu, incentive spirometer, taper IV steroids
Patient started on CPAP for GUILLERMO by pulmonology, uses CPAP at home and is compliant with it
Other medical conditions
Type 2 diabetes--continue metformin, Januvia, insulin on sliding scale, taper steroids
paroxysmal Atrial fibrillation--Continue Eliquis
Essential hypertension--started on amlodipine 5 mg daily
Obesity--affects all aspects of care
Pulmonary nodules--noted
History of TIA/CVA--noted
Hypercholesterolemia
Obstructive sleep apnea--continue CPAP
BPH--Continue tamsulosin, finasteride
GERD--continue Protonix
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 Scabbed scratch almendarez R
anterior ankle and L upper vogel. R 4th toenail with dried blood.
Being treated with barrier ointment and healing okay
Patient given option about bed availability at [facility]. Once patient is done with his video swallowing study on April and is evaluated by speech pathologist can work on further discharge work
code status --Full code
DVT prophylaxis�Eliquis
Anticipated Discharge: 24 - 48 hours
Subjective/Interval History
-
Date of Service: April 25, 2024
Patient has no active issues at this time and feels well
Objective Data
-
Labs:
Laboratory Results
04/25/24
04:52
WBC 10.8
Hgb 14.6
Hct 41.9
Plt Count 196
Sodium 135
Potassium 4.3
Chloride 100
Carbon Dioxide 24
BUN 33 H
Creatinine 0.9
Glucose 243 H
Calcium 8.1 L
Vital Signs:
Vital Signs
Temp Pulse Resp BP Pulse Ox
98.0 F 62 22 172/87 95
04/25/24 11:00 04/25/24 11:00 04/25/24 11:00 04/25/24 11:00 04/25/24 11:00
I&O
04/24/24 04/25/24 04/26/24
06:59 06:59 06:59
Intake Total 600 / 600 2160 / 2160
Output Total 2200 / 2200
Balance 600 / 600 -40 / -40
Review of Systems
-
All other systems: Reviewed and negative
Physical Exam
-
General: Well Developed, Well Nourished and Obese (BMI 34.7)
HEENT: Normocephalic, Atraumatic and Moist Mucous Membranes
Respiratory: Clear to Auscultation
Cardiac: Regular Rhythm and S1/S2
GI: Soft, Nontender and Other (tympanitic+bowel sounds)
Musculoskeletal: No Clubbing, No Cyanosis and No Edema
Skin: Warm
Neuro: Awake, Oriented and No Motor Deficits
Psych: Calm
[2024-04-25 16:50] LABS: Glucose - Point of Care 205 mg/dl (70-99)
--- NOTE | 2024-04-25 17:30 | W.PN.PUL3 ---
Today's Communication / Plan
-
Completed Tamiflu
Observe off antibiotic
Aspiration precautions
Transitioned to prednisone tomorrow, 40mg, reducing by 10mg every 4th day until off
Continue LABA/ICS with Symbicort; DC home with symbicort or its equivalent
CPAP at night
Agree with discharge planning
Pulmonary service will continue to follow along. Outpatient office follow up with Dr. Lucas (last visit 11/03/2023)
Sign off
Assessment
-
88-year-old male with history of diabetes, sleep apnea, atrial fibrillation who lives in [facility], presents with few days of URI symptoms found to have influenza A. Developed episode of emesis with possible aspiration event, increased
respiratory distress, increased oxygen requirement transferred to IMU
Impression:
Acute hypoxic respiratory insufficiency requiring 5 L, now on RA as of 04/24/2024
Acute influenza A
URI symptoms x 3 days
Leukocytosis - now resolved
Conditions present prior to admission
History of CHF
Obstructive sleep apnea on CPAP
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
Hypertension/hyperlipidemia
GERD
Atrial fibrillation on anticoagulation
Chronic rhinitis
Obesity
History of nodules
Plan/recommendations
Patient appears to be comfortable, and is now on room air breathing comfortably
-
Wheezing now resolved as of exam on 04/24/2024
Chest x-ray is unremarkable, however there are small nodular branching opacities in the lower lobes seen on the lung bases from CT abdomen/pelvis 04/23/2024
Observe off antibiotics.
Cough has improved.
Transitioned to 40mg and reducing by 10mg every 4th day until off (04/25/2024)
Given his cough in setting of flu, he should also be started and discharged home on a LABA/ICS --> will start Symbicort 160mcg while hospitalized, and DC home with same inhaler (if approved by his insurance; otherwise can prescribe an equivalent
inhaler)
Completed Tamiflu.
s/p zosyn (given 04/21 - 04/22/2024)
For VSE tomorrow, then SNF
Head of bed elevated, aspiration precautions
Continue Eliquis therapy
Continue CPAP with sleep, currently at [id number]
-
No additional recommendation from the pulmonary perspective
Agree with plan of video swallow evaluation tomorrow and then discharge.
Sign off
Subjective Data
-
Date of Service:
Date of Service: April 25, 2024
Chief Complaint: Pulmonary Follow Up
Objective Data
Data Reviewed
Vital Signs / I&O / Oxygen:
Vital Signs
Temp Pulse Resp BP Pulse Ox
98.0 F 62 22 172/87 96
04/25/24 11:00 04/25/24 11:00 04/25/24 11:00 04/25/24 11:00 04/25/24 15:09
Intake and Output
04/24/24 04/25/24 04/26/24
06:59 06:59 06:59
Intake Total 600 / 600 2160 / 2160
Output Total 2200 / 2200
Balance 600 / 600 -40 / -40
SaO2 96
Nasal Cannula flow liters per 3
minute
Physical Exam
General: Respiratory Distress (n), Comfortable, Chills (n) and Sweats (n)
HEENT: Normocephalic, Anicteric and Other (thick neck)
Cardiovascular: S1-S2, Regular Rhythm, Murmur (n), Rub (n) and Peripheral Edema (n)
Respiratory: Wheeze (negative), Crackles (bibasilar), Rhonchi (n) and Non-Labored Respirations
GI: Soft, Non Distended (Obese), Non Tender and Normal Bowel Sounds
Neurology: AO x 3 and Tremors (n)
Skin: Warm, Dry, Cyanosis (n), Jaundice (n) and Rash (n)
Labs/Micro/Reports
Lab Data
04/25/24 04:52
04/25/24 04:52
[2024-04-25] MEDS: NOVOLOG FLEXPEN-HIGH RESISTANCE 4 UNITS SC (17:50)
[2024-04-25] MEDS: PROSCAR 5 MG PO (17:52)
[2024-04-25] MEDS: FLOMAX 0.4 MG PO (17:52)
[2024-04-25] MEDS: METAMUCIL, KONSYL 0.5 PACKET PO (19:53)
[2024-04-26 03:38] VITALS: BP 145/70
[2024-04-26] MEDS: SYMBICORT 160/4.5 MCG INHALER 2 PUFF INH (07:23)
[2024-04-26 07:30] VITALS: BP 104/67
[2024-04-26] MEDS: VITAMIN C 500 MG PO (08:19)
[2024-04-26] MEDS: GLUCOPHAGE XR EXTENDED RELEASE 500 MG PO (08:19)
[2024-04-26] MEDS: NOVOLOG FLEXPEN-HIGH RESISTANCE SC (08:19)
[2024-04-26] MEDS: JANUVIA 100 MG PO (08:19)
[2024-04-26] MEDS: NORVASC 5 MG PO (08:19)
[2024-04-26] MEDS: HIPREX 1 GRAM PO (08:19)
[2024-04-26] MEDS: OCUVITE SOFTGEL 1 CAP PO (08:19)
[2024-04-26] MEDS: MUCINEX 600 MG PO (08:19)
[2024-04-26] MEDS: DELTASONE 40 MG PO (08:19)
[2024-04-26] MEDS: VISBIOME 1 CAP PO (08:20)
[2024-04-26] MEDS: HUMULIN N KWIKPEN 80 UNITS SC (08:20)
[2024-04-26] MEDS: LYRICA 25 MG PO (08:20)
[2024-04-26] MEDS: ELIQUIS 5 MG PO (08:20)
[2024-04-26] MEDS: REFRESH EYE DROPS (PF) 1 DROPS BOTH EYES (08:20)
--- NOTE | 2024-04-26 08:33 | W.PN.HOSP.TC ---
Addendum entered and electronically signed by Charline Hilario MD 04/26/24 15:16:
I saw and evaluated the patient independently. I reviewed the resident�s note and agree with findings and plan as documented by Dr. Lockwood.
GENERAL: well developed, well nourished, male in no apparent distress
HEENT:NC/AT--off O2
HEART: regular rate and rhythm, +S1, +S2
LUNGS : clear to auscultation bilaterally
ABDOM: soft, nontender, distended and tympanitic + bowel sounds
EXT: no cyanosis, clubbing, or edema
NEUROLOGIC: grossly intact
VSE done--cont current soft and bite sized diet with nectar thick liquids-- d/c to SNF
acute hypoxemic resp failure--due to combination of influenza A + and aspiration (pneumonitis most likely, no pna on CXR)----on room air --apprec pulm--cont tamiflu, incentive spirometer, taper steroids and can stop IV abx
colonic ileus--likely cause of n/v--nursing reports moving bowels--CT scan with ileus no obstruction, no volvulus--OOB, PT/OT--much improved today
Type 2 diabetes--cont metformin, Januvia as able--Insulin sliding scale--Continue Lantus as able--blood sugars running high, will be higher with addition of steroids--diabetic diet as per speech
paroxysmal Atrial fibrillation--Continue Eliquis
Essential hypertension--not on home meds?
Obesity--affects all aspects of care
Pulmonary nodules--noted
History of TIA/CVA--noted
Hypercholesterolemia
Obstructive sleep apnea--cont CPAP
BPH--Continue tamsulosin, finasteride
GERD--continue Protonix
Wound Location and type/assessment (POA)-- MASD penis tip (penis retracted), R groin MASD, Perianal MASD along with blanchable purple skin (reported by nursing as much improved since admission) Scabbed scratch almendarez R anterior ankle and L upper
vogel. R 4th toenail with dried blood--apprec wound care input
code status --Full code
DVT prophylaxis�Eliquis
Original Note:
Today's Communication/Plan
-
Video swallowing study
Assessment / Plan
Assessment / Plan
Impression
Patient is an 88 year old male admitted for generalized weakness, cough, sore throat for 3 days, found to have influenza A and had an episode of emesis resulting in aspiration and worsening of breathing function prompting the admission to IMU.
Patient evaluated for colonic ileus and obstruction given distended abdomen with tympanic percussion note, and obstruction series showed probable colonic ileus without overt obstruction. Patient has had bowel movements, serum electrolytes within
normal limits, Tamiflu course completed so patient shifted to [facility].
#Black stool?
Patient had an episode of black stool yesterday
No drop in hgb,feels fine other than tiredness from flu recovery
Denies any syncope or dizziness
Observe for now
#Colonic ileus
Nausea vomiting and tympanic noted on abdominal percussion
CT abdomen/pelvis April 23, 2024
IMPRESSION: Small nodular opacities within both lower lobes of the lungs, suggesting small airway pneumonitis in this patient with history of influenza. There are also linear densities within both lower lungs, which is likely atelectasis.
Stable small nodular opacities within the periphery of the right lower lung, as well as increased interstitial markings, suggesting changes of interstitial fibrosis.
Coronary artery calcifications. Please correlate with symptoms of and risk factors for coronary artery disease, with further workup as clinically appropriate.
Mild gaseous distention of the transverse colon and the sigmoid colon. No evidence for bowel obstruction or free intraperitoneal air. No significant bowel wall thickening is evident.
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
Subtle stranding of the fat adjacent to the tail the pancreas, suggesting the possibility of pancreatitis. No evidence of a focal collection.
Diffuse fatty infiltration of the liver.
Small bilateral nephroliths. 2.2 cm stable hyperdense cyst arising exophytically from the anterior left mid kidney.
Patient evaluated by speech pathologist who suggested that he should be on soft and bite-size solids until he gets his swallowing study done on April
Keep monitoring regular bowel movements, serum electrolytes and keep the patient moving around to help with the ileus.
# Essential hypertension
Patient has had consistently high blood pressure readings
Start amlodipine 5 mg daily and monitor blood pressure
Blood pressure coming down and we anticipate that with steroid taper and amlodipine the blood pressure would be fine
#Acute hypoxemic resp failure-secondary to influenza A and aspiration (pneumonitis most likely, no pna on CXR)
Patient is on 2 L of oxygen, plan to wean him off oxygen
Chest clear
Pulmonology consult appreciated-cont tamiflu, incentive spirometer, taper IV steroids
Patient started on CPAP for GUILLERMO by pulmonology, uses CPAP at home and is compliant with it
Other medical conditions
Type 2 diabetes--continue metformin, Januvia, insulin on sliding scale, taper steroids
paroxysmal Atrial fibrillation--Continue Eliquis
Essential hypertension--started on amlodipine 5 mg daily
Obesity--affects all aspects of care
Pulmonary nodules--noted
History of TIA/CVA--noted
Hypercholesterolemia
Obstructive sleep apnea--continue CPAP
BPH--Continue tamsulosin, finasteride
GERD--continue Protonix
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 Scabbed scratch almendarez R
anterior ankle and L upper vogel. R 4th toenail with dried blood.
Being treated with barrier ointment and healing okay
Patient given option about bed availability at [facility]. Once patient is done with his video swallowing study on April and is evaluated by speech pathologist can work on further discharge work
code status --Full code
DVT prophylaxis�Eliquis
Anticipated Discharge: Within 24 hours
Subjective/Interval History
-
Date of Service: April 26, 2024
Patient was unable to sleep last night,attributes it to to general factors like hospital environment
Black stool yesterday
Objective Data
-
Labs:
Laboratory Results
04/26/24
07:51
WBC Pending
Hgb Pending
Hct Pending
Plt Count Pending
Sodium Pending
Potassium Pending
Chloride Pending
Carbon Dioxide Pending
BUN Pending
Creatinine Pending
Glucose Pending
Calcium Pending
Vital Signs:
Vital Signs
Temp Pulse Resp BP Pulse Ox
97.4 F 67 18 145/70 97
04/26/24 03:38 04/26/24 07:23 04/26/24 07:23 04/26/24 03:38 04/26/24 07:23
I&O
04/25/24 04/26/24 04/27/24
06:59 06:59 06:59
Intake Total 2160 / 2160 1200 / 1200
Output Total 2200 / 2200
Balance -40 / -40 1200 / 1200
Review of Systems
-
All other systems: Reviewed and negative
Physical Exam
-
General: Well Developed, Well Nourished and Other (appears tired)
HEENT: Normocephalic and Atraumatic
Respiratory: Clear to Auscultation
Cardiac: Regular Rhythm and S1/S2
GI: Soft, Nontender and Normal Bowel Sounds
Musculoskeletal: No Clubbing, No Cyanosis and No Edema
Skin: Warm and Dry
Neuro: Awake, Oriented and No Motor Deficits
Psych: Calm
[2024-04-26 09:40] LABS: % Basophils 0.2 % (0-2); % Eosinophils 0.5 % (0-6); % Immature Granulocytes 1.5 % (0-0.5); % Lymphocytes 24.9 % (20.5-51.1); % Monocytes 7.6 % (1.7-9.3); % Neutrophils 65.3 % (42.2-75.2); Absolute Eosinophils 0.1 10^3/uL (0-0.7); Absolute Immature Granulocytes 0.2 10^3/uL (0-0.05); Absolute Lymphocytes 3.3 10^3/uL (1.2-3.4); Absolute Neutrophils 8.6 10^3/uL (1.4-6.5); Hematocrit 43.7 % (39.0-52.0); Mean Corp Hgb Conc. 34.3 g/dL (33.0-37.0); Mean Corpuscular Hgb 32.6 pg (27.0-31.0); Mean Platelet Volume 10.2 fL (7.4-10.4); Nucleated Red Blood Cells % 0 % (-); Platelet Count 216 10^3/uL (130-400); Red Cell Dist. Width 12.9 % (11.5-14.5); White Blood Cell Count 13.2 10^3/uL (4.8-10.8)
[2024-04-26 10:13] LABS: Blood Urea Nitrogen 31 mg/dl (9-20); Calcium 8.2 mg/dl (8.4-10.2); Carbon Dioxide 26 mmol/L (22-30); Chloride 100 mmol/L (98-107); Estimated Creatinine Clearance 68 ml/min; Glucose 82 mg/dl (70-99); Magnesium 2.6 mg/dl (1.6-2.3); Potassium 3.7 mmol/L (3.5-5.1); Sodium 135 mmol/L (135-145); eGFR > 60.00
[2024-04-26 11:00] VITALS: BP 145/74
--- NOTE | 2024-04-26 11:38 | PTOTSP ---
Video Swallow Examination
Silent aspiration observed with thin liquid by single sip due to combination of posterior leakage to pyriform sinuses and delayed/disorganized laryngeal vestibular closure. No significant pharyngeal stasis.
Recommend
1. Maintain current diet recommendations of IDDSI 6 (soft and bite-sized) and Mildly thick Liquids.
2. Meds crushed in applesauce.
3. Aspiration Precautions.
4. Allow sips of thin water and ice chips with supervision according to Aspiration Risk Hydration Protocol (ARHP), including oral care 4x/daily and always before taking thin water.
5. Follow up speech therapy at next level of care to assist in advancing to baseline diet of regular solids and thin liquids.
--- NOTE | 2024-04-26 11:51 | W.DCSUMMARY ---
Addendum entered and electronically signed by Charline Hilario MD 04/26/24 17:32:
Read, reviewed, and agree. See same day progress note for additional details. Time spent coordinating care, DC planning, review of DC plan of care with resident, transition of care, review of records in EMR, med rec, consults, notes, d/w
consultants, nursing, family, and CM = 35 minutes
Original Note:
Discharge Summary
Discharge Data
Date of Admission: 04/22/24
Date of Discharge: 04/26/24
-
Pending Results: No
Hospital Course
Discharging Physician :
Dr.Mary Olivia Hilario, Romel Lockwood
Disposition :
SNF
Primary care physician :
Emily Tapia MD
Principal Discharge diagnosis :
Colonic ileus/Dysphagia/Acute hypoxemic respiratory failure secondary to influenza A and Aspiration Pneumonia
Chronic Discharge diagnosis :
type 2 diabetes--cont metformin, Januvia
paroxysmal Atrial fibrillation--Continue Eliquis
Essential hypertension--Amlodipine 5 mg daily
Obesity--affects all aspects of care
Pulmonary nodules--noted
History of TIA/CVA--noted
Hypercholesterolemia
Obstructive sleep apnea-- CPAP
BPH--Continue tamsulosin, finasteride
GERD--continue Protonix
Hospital Course :
# Combination of influenza A+ aspiration pneumonitis
Patient is a 89-year-old male who presented to emergency from [facility] for weakness, cough and sore throat for past 2 days. His influenza A test came back positive, at that time he was breathing on room air and plan was to discharge him on
Tamiflu but then he had an aspirational event that resulted in drop in oxygen saturation, requirement of 5 L oxygen, and patient was admitted for evaluation and management of acute hypoxemic respiratory failure secondary to influenza plus aspiration
pneumonitis.
Pulmonology consult was done who suggested aspirational pneumonitis and suggested discontinuing antibiotic therapy, completing Tamiflu course along with supportive care.
# Colonic ileus
ACT scan of abdomen was done that showed colonic ileus with no obstruction, no volvulus. He was managed conservatively with supportive care, started on thick liquid and soft pur�ed diet, monitored his electrolytes and encouraged the patient to move
around which helped in resolving the ileus.
# Speech swallowing study for dysphagia
A speech swallowing study was done
Findings: Brief imaging of the thoracic esophagus demonstrates no significant esophageal retention.
Thin liquid barium by spoon: No penetration or airway aspiration
Thin liquid barium sip by straw: Airway aspiration
[place] consistency barium by spoon and single sip by straw: No penetration or airway aspiration
Honey consistency and pudding consistency barium by spoon: No penetration or airway aspiration
Solid barium by cookie: No penetration or airway aspiration
Recommendations
Soft bite sized solids and continue mildly thick liquids
Important imaging findings :
Chest x-ray 04/20/2024
FINDINGS:
Frontal and lateral radiographs of the chest were obtained.
The cardiac silhouette and pulmonary vasculature are radiographically within normal limits.
There are no acute mediastinal abnormalities.
There are no acute pleural or parenchymal abnormalities.
IMPRESSION:
No active cardiopulmonary disease.
Chest /abdominal x-ray 04/21/2024
IMPRESSION:
1. No acute cardiopulmonary process.
2. Probable colonic ileus without overt obstruction.
Abdominal/pelvis CT 04/23/2024
IMPRESSION:
Small nodular opacities within both lower lobes of the lungs, suggesting small airway pneumonitis in this patient with history of influenza. There are also linear densities within both lower lungs, which is likely atelectasis.
Stable small nodular opacities within the periphery of the right lower lung, as well as increased interstitial markings, suggesting changes of interstitial fibrosis.
Coronary artery calcifications. Please correlate with symptoms of and risk factors for coronary artery disease, with further workup as clinically appropriate.
Mild gaseous distention of the transverse colon and the sigmoid colon. No evidence for bowel obstruction or free intraperitoneal air. No significant bowel wall thickening is evident.
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
Subtle stranding of the fat adjacent to the tail the pancreas, suggesting the possibility of pancreatitis. No evidence of a focal collection.
Diffuse fatty infiltration of the liver.
Small bilateral nephroliths. 2.2 cm stable hyperdense cyst arising exophytically from the anterior left mid kidney.
Discharge Plan
-
Patient Disposition: [facility]Hospital
Discharge Diagnosis/Procedures: Colonic ileus/Dysphagia/Acute hypoxemic respiratory failure secondary to influenza A and Aspiration Pneumonia
Condition: Fair
Diet: Diabetic, Carb Controlled and Other diet
Additional Diets: Soft bite sized solids and mildly thick liquids
Activity: As tolerated
Driving Restrictions: As prior to admission
Bathing Restrictions: OK to Shower
Activity Restrictions/Additional Instructions:
Penis tip, groin, perianal MASD-barrier ointment (i.e. Calazime) bid.
R 4th toenail-clean with saline, apply protective dry gauze dressing or Band-aid daily.
Bariatric air chair cushion.
Evaluate for a hospital bed with an air mattress.
Elevate heels off bed with pillow/s.
Follow up with a fulling mill operator.
Referrals:
Emily Tapia MD [Family Provider] - in less than 1 week
Toi Lucas MD [Active] - in two to four weeks
Prescriptions:
New
amlodipine 5 mg Tablet
5 mg PO DAILY 30 Days Qty: 0 0RF
prednisone 10 mg Tablet
See Rx Instructions .ROUTE .COMPLEX Qty: 30 0RF
Rx Instructions:
Take By Mouth:
40 mg daily x3 days, 30 mg daily x3 days,
20 mg daily x3 days, 10 mg daily x3 days.
Continued
tamsulosin 0.4 MG capsule
0.4 mg PO QPM
finasteride 5 MG tablet
5 mg PO QPM
Eliquis 5 MG tablet
5 mg PO BID Qty: 60 0RF
Systane (PF) 1 EACH dropperette
1 drops BOTH EYES BID
Januvia 100 MG tablet
100 mg PO DAILY
PreserVision AREDS 1 CAP capsule
1 cap PO DAILY
L.acidoph,paracasei,B.animalis 1 EACH capsule
1 ea PO DAILY
Novolin N NPH U-100 Insulin 1,000 UNITS/10 ML suspension
80 - 100 units SC BID
Patient Comments:
psyllium Packet
0.5 packet PO Q48H@2000
metformin 500 mg Tablet Extended Release 24 Hr
500 mg PO DAILY
methenamine hippurate 1 gram tablet
1 g PO BID Qty: 60 0RF
ascorbic acid (vitamin C) [Vitamin C] 1,000 mg tablet
500 mg PO BID Qty: 60 0RF
guaifenesin [Mucinex] 600 mg Tablet Extended Release 12hr
600 mg PO Q12H
pregabalin [Lyrica] 25 mg Capsule
25 mg PO DAILY
Discharge Orders:
Discharge Patient (As Directed); Ordered 04/26/24
Ordered By: Romel Lockwood
Discharge Date and Time
Discharge Date/Time: 04/26/24 15:28
Print Language: MAORI
[2024-04-26] MEDS: NOVOLOG FLEXPEN-HIGH RESISTANCE 7 UNITS SC (12:21)
[2024-04-26 13:26] VITALS: BP 116/70; PULSE 77; PULSE 89
[2024-04-26 14:15] LABS: COVID-19 Antigen Negative (Negative)
[2024-04-26 14:16] LABS: Glucose - Point of Care 274 mg/dl (70-99)
[2024-04-26 14:16] LABS: Glucose - Point of Care 224 mg/dl (70-99)
[2024-04-26 14:16] LABS: Glucose - Point of Care 92 mg/dl (70-99)
--- NOTE | 2024-04-26 15:03 | PTCARENOTE ---
discharge order acknowledged, patient's transported via ambulance, IV and tele pack removed. unable to give report to Daisy olmstead. called two times and left the message with the facility
== END 2024-04-26 15:28 | DRG 193 ==
LOC: 4 WEST ACU 06:45
PROVIDERS: Registered Nurse; ADMITTING PHYSICIAN Hospitalist; ATTENDING PHYSICIAN Internal Medicine; CONSULT PHYSICIAN Internal Medicine Critical Care Medicine; EMERGENCY PHYSICIAN Emergency Medicine; FAMILY PHYSICIAN Internal Medicine Geriatric Medicine
PROC: 5A09357 Assistance with Respiratory Ventilation, Less than 24 Consecutive Hours, Continuous Positive Airway Pressure (ICD-10-PCS; 2024-04-21)
DX: J10.1 Influenza due to other identified influenza virus with other respiratory manifestations (principal); J96.01 Acute respiratory failure with hypoxia; K56.7 Ileus, unspecified; J98.11 Atelectasis; J69.0 Pneumonitis due to inhalation of food and vomit; Z11.52 Encounter for screening for COVID-19; R13.10 Dysphagia, unspecified; E11.9 Type 2 diabetes mellitus without complications; Z79.84 Long term (current) use of oral hypoglycemic drugs; I48.0 Paroxysmal atrial fibrillation; Z79.01 Long term (current) use of anticoagulants; I11.0 Hypertensive heart disease with heart failure; I50.9 Heart failure, unspecified; E66.9 Obesity, unspecified; Z68.34 Body mass index [BMI] 34.0-34.9, adult; Z86.73 Personal history of transient ischemic attack (TIA), and cerebral infarction without residual deficits; E78.00 Pure hypercholesterolemia, unspecified; G47.33 Obstructive sleep apnea (adult) (pediatric); N40.0 Benign prostatic hyperplasia without lower urinary tract symptoms; K21.9 Gastro-esophageal reflux disease without esophagitis; I25.10 Atherosclerotic heart disease of native coronary artery without angina pectoris; K76.0 Fatty (change of) liver, not elsewhere classified; Z88.1 Allergy status to other antibiotic agents; Z88.8 Allergy status to other drugs, medicaments and biological substances; Z79.4 Long term (current) use of insulin; H35.30 Unspecified macular degeneration; Z79.899 Other long term (current) drug therapy; J31.0 Chronic rhinitis; G89.29 Other chronic pain; N28.9 Disorder of kidney and ureter, unspecified; S30.93XA Unspecified superficial injury of penis, initial encounter; S30.91XA Unspecified superficial injury of lower back and pelvis, initial encounter; S30.92XA Unspecified superficial injury of abdominal wall, initial encounter; X58.XXXA Exposure to other specified factors, initial encounter
CPT/HCPCS: 36600; 71046; 74022; 74177; 74230; 80048; 80053; 82805; 82962; 83036; 83735; 83880; 84484; 85025; 85027; 87070; 87502; 87811; 92526; 92610; 92611; 93005; 94640; 94660; 97164; 97167; 97530; 99285; Q9967

== ENCOUNTER → 2024-08-03 11:10 | Outpatient (REF) | payer OTHER, SELFPAY | LOC: HWRAD 11:10 | PROVIDERS: ATTENDING PHYSICIAN Specialist; FAMILY PHYSICIAN Internal Medicine Geriatric Medicine | DX: N39.0 Urinary tract infection, site not specified (principal) | CPT/HCPCS: 76857 ==

== ENCOUNTER 2024-08-06 17:29 | Emergency (ER) | payer OTHER, SELFPAY ==
[2024-08-06 17:34] VITALS: BP 161/79; BMI 34.9
[2024-08-06 17:55] LABS: % Basophils 0.2 % (0-2); % Eosinophils 6.1 % (0-6); % Immature Granulocytes 0.6 % (0-0.5); % Lymphocytes 25.3 % (20.5-51.1); % Monocytes 7.8 % (1.7-9.3); Absolute Eosinophils 0.5 10^3/uL (0-0.7); Absolute Immature Granulocytes 0.1 10^3/uL (0-0.05); Absolute Lymphocytes 2.1 10^3/uL (1.2-3.4); Absolute Monocytes 0.7 10^3/uL (0.1-0.6); Absolute Neutrophils 5.1 10^3/uL (1.4-6.5); Hematocrit 40.4 % (39.0-52.0); Hemoglobin 13.8 g/dL (13.0-18.0); Mean Corp Hgb Conc. 34.2 g/dL (33.0-37.0); Mean Corpuscular Hgb 33.3 pg (27.0-31.0); Mean Corpuscular Volume 97.3 fL (80.0-94.0); Mean Platelet Volume 9.8 fL (7.4-10.4); Nucleated Red Blood Cells % 0 % (-); Platelet Count 206 10^3/uL (130-400); Red Blood Cell Count 4.15 10^6/uL (4.70-6.10); Red Cell Dist. Width 14.2 % (11.5-14.5); White Blood Cell Count 8.5 10^3/uL (4.8-10.8)
[2024-08-06 18:00] VITALS: BP 160/89
[2024-08-06 18:05] LABS: APTT 30.2 Sec (23.4-35.0); INR 1.07; PT 14.2 Sec (11.4-14.6)
[2024-08-06 18:06] LABS: ALT (SGPT) 12 U/L (0-50); AST (SGOT) 17 U/L (17-59); Albumin 3.8 g/dl (3.5-5.0); Alkaline Phosphatase 76 U/L (38-126); Blood Urea Nitrogen 20 mg/dl (9-20); Calcium 9.3 mg/dl (8.4-10.2); Carbon Dioxide 27 mmol/L (22-30); Chloride 108 mmol/L (98-107); Estimated Creatinine Clearance 69 ml/min; Glucose 161 mg/dl (70-99); Potassium 4.6 mmol/L (3.5-5.1); Sodium 141 mmol/L (135-145); Total Protein 6.8 g/dl (6.3-8.2); eGFR > 60.00
--- NOTE | 2024-08-06 18:29 | ED.GENMED ---
History of Present Illness
General
Chief Complaint: Rectal Bleeding
Source: patient
Exam Limitations: none
Time Seen by Provider: 08/06/24 18:09
History of Present Illness
History of Present Illness:
Patient with an episode of dark slightly loose stool earlier. 2 further episodes although not as dark. No abdominal pain fever or other complaints. Has been on multiple antibiotics for UTI.
Past History
Past History
ED Past Medical History: Arrthythmia (Atrial fibrillation), CVA, HTN, Hypercholesterolemia, IDDM, NIDDM and Other (GUILLERMO on CPAP, obesity, Chronic LBP w/ gait dysfunction; BPH)
ED Past Surgical History: Cardiac (Unremarkable cardiac catheterization April 2017.), Orthopedic (Lumbar laminectomy ( L3-L5)2012) and Other (Strabismus repair)
Patient has exhibited threatening behavior?: No
Social History
Tobacco: Non-smoker
Alcohol: None
Drug: None
Personal:
Living: with family
Employment: Retired
Family History
Family History: Hypertension
Review of Systems
Review of Systems
All Other Systems: Not applicable
Constitutional: Denies fever or chills
Respiratory: Reports no symptoms
Cardiac: Reports no symptoms
Phy Exam
Physical Exam
Physical Exam:
GENERAL: Alert and oriented in no apparent distress
EYE: Orbits normal.
NECK: Supple
CARDIAC: Regular rate and rhythm without any obvious murmurs.
LUNGS: Clear breath sounds,normal
ABDOMEN: Soft, without focal tenderness or distention. Elevated BMI. Rectal exam checked x 2 negative for blood
NEUROLOGICAL: Alert and oriented , grossly non-focal
SKIN: Warm and dry, no rash or lesion, no discoloration, skin intact.
PSYCH: Normal and appropriate interaction.
Course
Orders/Labs/Results
Orders:
Orders
08/06/24 17:33
Cardiac Monitoring- Treatment ONCE
IV Insert/Care/Rem.- Treatment PRN
O2 Therapy [RESP] Urgent
Titrate/Wean O2 to maintain O2 sat greater than (%): 93
Special Instructions: MAINTAIN CONTINOUS O2 SATS > OR = 93%
Pulse Ox/spot Check [RESP] Urgent
Quantity: 1
Special Instructions: ON ROOM AIR
08/06/24 17:40
Type+Screen Urgent
Complete Blood Count/With Diff Urgent
Comprehensive Metabolic Panel Urgent
PTT Urgent
Prothrombin Time Urgent
08/06/24 18:29
STOOL [C difficile Antigen & Toxins] Urgent
DARYA Source: Feces/Stool
Specimen Description:
Stool Culture Urgent
DARYA Source: Feces/Stool
Specimen Description:
Abnormal Lab Results
08/06/24
17:40
RBC 4.15 L 10^6/uL
(4.70-6.10)
MCV 97.3 H fL
(80.0-94.0)
MCH 33.3 H pg
(27.0-31.0)
Abs Immat Gran (auto) 0.1 H 10^3/uL
(0-0.05)
Absolute Monos (auto) 0.7 H 10^3/uL
(0.1-0.6)
Immature Gran % 0.6 H %
(0-0.5)
Eosinophils % 6.1 H %
(0-6)
Chloride 108 H mmol/L
(98-107)
Glucose 161 H mg/dl
(70-99)
08/06/24 17:40
08/06/24 17:40
Vital Signs
Initial and Last Documented VS:
Initial Vital Signs
Temp Pulse Resp BP Pulse Ox
97.6 F 71 19 161/79 96
08/06/24 17:34 08/06/24 17:34 08/06/24 17:34 08/06/24 17:34 08/06/24 17:34
Last Documented Vital Signs
Temp Pulse Resp BP Pulse Ox
97.6 F 74 16 160/89 97
08/06/24 17:34 08/06/24 18:00 08/06/24 18:00 08/06/24 18:00 08/06/24 18:00
MDM/Problems Addressed
Differential Diagnosis Includes:
Patient send for dark stool. Hemoccult negative x 2. Stable hemoglobin. Slight drop from the last hemoglobin but stable from the end of 2023. Tested negative x 2. BUN normal. Do not feel this is an acute GI bleed. C. difficile colitis would
be in the differential. Stool ordered if he can get it prior to discharge
*Pulse Oximetry
Patient hypoxic: no
*Critical Care Note
Total Time (30-74mins, 75-104mins- exclusive of procedures): Not Applicable
Data Reviewed
Review of Other/Old Records Reveals: Labs, Records and Testing
ED Attending Note
-
Portions of this chart may have been created with voice recognition software.� Occasional wrong word or��sound alike� substitutions may have occurred due to the inherent limitations of voice recognition software.
Discharge Plan
Departure
Patient Disposition: Home (Routine Discharge)
Date of Disposition: 08/06/24
Time of Disposition: 18:31
Patient with high blood pressure during this ER visit?: Yes
Discharge Problem:
Dark stool/diarrhea, To consider C. difficile colitis
Instructions: Acute Diarrhea, BLOOD PRESSURE
Prescriptions:
No Action
tamsulosin 0.4 MG capsule
0.4 mg PO QPM
finasteride 5 MG tablet
5 mg PO QPM
Eliquis 5 MG tablet
5 mg PO BID Qty: 60 0RF
Systane (PF) 1 EACH dropperette
1 drops BOTH EYES BID
Januvia 100 MG tablet
100 mg PO DAILY
PreserVision AREDS 1 CAP capsule
1 cap PO DAILY
L.acidoph,paracasei,B.animalis 1 EACH capsule
1 ea PO DAILY
Novolin N NPH U-100 Insulin 1,000 UNITS/10 ML suspension
80 - 100 units SC BID
Patient Comments:
psyllium Packet
0.5 packet PO Q48H@2000
metformin 500 mg Tablet Extended Release 24 Hr
500 mg PO DAILY
methenamine hippurate 1 gram tablet
1 g PO BID Qty: 60 0RF
ascorbic acid (vitamin C) [Vitamin C] 1,000 mg tablet
500 mg PO BID Qty: 60 0RF
guaifenesin [Mucinex] 600 mg Tablet Extended Release 12hr
600 mg PO Q12H
pregabalin [Lyrica] 25 mg Capsule
25 mg PO DAILY
amlodipine 5 mg Tablet
5 mg PO DAILY 30 Days Qty: 0 0RF
prednisone 10 mg Tablet
See Rx Instructions .ROUTE .COMPLEX Qty: 30 0RF
Rx Instructions:
Take By Mouth:
40 mg daily x3 days, 30 mg daily x3 days,
20 mg daily x3 days, 10 mg daily x3 days.
Referrals:
Stacie Barker MD [Family Provider] - Tomorrow
Activity Restrictions/Additional Instructions:
If you did not give a stool specimen in the ER, the [facility] physicians should get 1 sent tomorrow to check for C. difficile colitis
Return with recurrent episodes of dark stool abdominal pain fever vomiting or any other concerning symptoms
Interventions
Interventions:
*Risk Screen - Suicide Last Done: 08/06/24 17:34
*General Assessment Last Done: 08/06/24 17:34
*Neglect/Abuse Screening Last Done: 08/06/24 17:34
*ED- Fall Risk Assessment Last Done: 08/06/24 17:34
*ED COVID-19 Vaccine History Last Done: 08/06/24 17:34
RP-Tqrijg-Kciowqhfeo Assessment Last Done: 08/06/24 18:17
ED- Cardiac Assessment Last Done: 08/06/24 18:17
ED- Pulmonary Assessment Last Done: 08/06/24 18:17
Discharge Date and Time
Print Language: CUBAN
[2024-08-06 20:30] VITALS: BP 159/60
== END 2024-08-06 20:37 | disposition home or self-care (01) ==
LOC: EMR 17:29
PROVIDERS: EMERGENCY PHYSICIAN Emergency Medicine; FAMILY PHYSICIAN Internal Medicine Geriatric Medicine
DX: R19.7 Diarrhea, unspecified (principal); R19.5 Other fecal abnormalities; I10 Essential (primary) hypertension
CPT/HCPCS: 99283; 80053; 85025; 85610; 85730; 86850; 86900; 86901

== ENCOUNTER 2024-09-09 17:15 | Inpatient (IN) | payer OTHER, SELFPAY ==
[2024-09-09] VITALS (10 sets, daily range): BP systolic 113–150; BP diastolic 55–77; BMI 35.9
[2024-09-09 12:38] LABS: Glucose - Point of Care 231 mg/dl (70-99)
--- NOTE | 2024-09-09 13:01 | ED.GENMED ---
History of Present Illness
General
Chief Complaint: Change in Mental Status
Source: patient and ambulance crew
Exam Limitations: none
Time Seen by Provider: 09/09/24 12:50
Nursing documentation reviewed up to this point in time: agreed with
History of Present Illness
History of Present Illness:
88-year-old male with a past medical history of hypertension, atrial fibrillation on Eliquis, GUILLERMO, diabetes who presents to the emergency department via EMS as a prehospital stroke alert due to speech difficulties. On speaking with his after
her arrival to the ER the chief concern that prompted EMS call was weakness and sluggishness. According to patient's he has been dealing with recurrent UTIs since April and has been on repeated courses of antibiotics. Recently patient says
he has been having increased urinary frequency and dysuria. Today woke up and was very weak with transfer from his chair to the bathroom�could not support himself. says that he was a bit sluggish. EMS was called to bring him to the hospital.
Per EMS on their arrival they felt he was having speech difficulties� says that sometimes he has word finding issues and this is a chronic issue. Neurologist on initial assessment felt patient was having aphasia due to difficulty naming things
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 Patient's complaints are feeling weak and having urinary symptoms�he denies feeling focal weakness denies
feeling his speech is altered, denies headache, back pain, abdominal pain, chest pain, shortness of breath or any other complaints.
Past History
Past History
ED Past Medical History: Arrthythmia (Atrial fibrillation), CVA, HTN, Hypercholesterolemia, IDDM, NIDDM and Other (GUILLERMO on CPAP, obesity, Chronic LBP w/ gait dysfunction; BPH)
ED Past Surgical History: Cardiac (Unremarkable cardiac catheterization April 2017.), Orthopedic (Lumbar laminectomy ( L3-L5)2012) and Other (Strabismus repair)
Patient has exhibited threatening behavior?: No
Social History
Tobacco: Non-smoker
Alcohol: None
Drug: None
Personal:
Living: with family
Employment: Retired
Family History
Family History: Hypertension
Review of Systems
Review of Systems
All Other Systems: ROS reviewed and negative except as documented in HPI and ROS
Constitutional: Reports fatigue; Denies fever
Respiratory: Denies cough or trouble breathing
Cardiac: Denies chest pain
ABD/GI: Denies abdominal pain, nausea, vomiting or diarrhea
: Reports dysuria and frequency; Denies flank pain
Musculoskeletal: Denies neck pain or back pain
Neurological: Reports weakness (Generalized); Denies dizzy, headache or numbness
Phy Exam
Physical Exam
Physical Exam:
General: Awake, alert, oriented x2 (this is baseline per ); no acute distress
Head: Normocephalic, atraumatic
Eyes: Conjunctiva normal, EOMI, pupils equal round and reactive to light bilaterally, visual garcia intact
Throat: Airway intact, handling secretions
Neck: Trachea midline, supple without meningismus
Lungs: Clear to auscultation bilaterally, no wheezing, rales, rhonchi
Heart: Regular rate and rhythm, no murmurs, gallops, or rubs
Abd: Soft, non distended, nontender
: Penis is retracted, moderate scrotal edema
Neuro: Cranial nerves intact, no limb ataxia, motor and sensory intact in all extremities; mild to moderate expressive aphasia but no dysarthria
Extremities: Warm and well-perfused
Scores
NIH Stroke Score
Level of Consciousness: 0 - Alert
LOC Questions: 1-Answers one correctly
LOC Commands: 0-Performs both correctly
Best Horizontal Gaze: 0-Normal
Visual Garcia: 0=Normal, no visual loss
Facial Palsy: 0=Normal, symmetrical
Motor - Right Arm: 0=No drift 10 seconds
Motor - Left Arm: 0=No drift 10 seconds
Motor - Right Le-No drift 5 seconds
Motor - Left Le-No drift 5 seconds
Limb Ataxia: 0-Absent
Sensation: 0-Normal
Best Language: 1-Mild aphasia
Dysarthria: 0-Normal
Extinction and Inattention: 0-No abnormality
NIH Total Score:: 2
Thrombolytic Contraindication
Inclusion and Exclusion criteria reviewed: Yes
Reasons for NON-Tx with Thrombolytics ABSOLUTE Exclusions: Patient taking oral anticoagulant and last dose within 48 hours
Heart Failure Risk
Heart Failure Risk Score: Not Applicable
Heart Score for Chest Pain Patients
STEMI patient?: Not applicable
Withdrawal Assessment of Alcohol
Withdrawal Assessment Completed?: Not applicable
Course
Orders/Labs/Results
Orders:
Orders
09/09/24 12:40
[address] HEAD STROKE ALERT W/o Cont Urgent
Comment:
Reason For Exam: stroke alert
CT HEAD/NECK ANG STROKE ALERT Urgent
Comment:
Reason For Exam: slurred speech
09/09/24 12:46
CT Brain Perfusion Urgent
Comment:
Reason For Exam: cva
09/09/24 12:50
Electrocardiogram (*1) Urgent
Reason for Study: TIA/Stroke
EKG- Treatment ONCE
09/09/24 13:01
CR Chest Portable - 1 View Urgent
Comment:
Reason For Exam: lethargic
Reason Study Needs to be Portable: Unable to Transport
09/09/24 13:31
Complete Blood Count/With Diff Urgent
Comprehensive Metabolic Panel Urgent
PTT Urgent
Prothrombin Time Urgent
09/09/24 14:54
0.9% Sodium Chloride 1000 ml [Nss] 1,000 ml IV BOLUS
Cefepime HCl [Maxipime] 1,000 mg IV NOW STA
09/09/24 15:00
Blood Culture Q30M
DARYA Source: Blood/Venous
Specimen Description:
09/09/24 15:21
Urinalysis Reflex To Culture Urgent
Date Specimen was Collected: 09/09/24
Time Specimen was Collected: 13:32
09/09/24 15:30
Blood Culture Q30M
DARYA Source: Blood/Venous
Specimen Description:
Abnormal Lab Results
09/09/24 09/09/24
12:36 13:31
WBC 16.9 H 10^3/uL
(4.8-10.8)
RBC 4.08 L 10^6/uL
(4.70-6.10)
MCV 97.5 H fL
(80.0-94.0)
MCH 33.1 H pg
(27.0-31.0)
Abs Immat Gran (auto) 0.1 H 10^3/uL
(0-0.05)
Absolute Neuts (auto) 15.5 H 10^3/uL
(1.4-6.5)
Absolute Lymphs (auto) 0.7 L 10^3/uL
(1.2-3.4)
Neutrophils % 92.1 H %
(42.2-75.2)
Lymphocytes % 4.1 L %
(20.5-51.1)
PT 15.5 H Sec
(11.4-14.6)
Chloride 108 H mmol/L
(98-107)
Glucose 210 H mg/dl
(70-99)
AST 15 L U/L
(17-59)
Total Protein 6.2 L g/dl
(6.3-8.2)
POC Glucose 231 H mg/dl
(70-99)
09/09/24 13:31
09/09/24 13:31
Vital Signs
Initial and Last Documented VS:
Initial Vital Signs
BP
116/55
09/09/24 12:34
Last Documented Vital Signs
Temp Pulse Resp BP Pulse Ox
36.7 C 80 21 131/59 98
09/09/24 12:36 09/09/24 14:15 09/09/24 14:15 09/09/24 14:01 09/09/24 14:15
Procedures
Urinary Catheter
Procedure completed by: Jules Abreu MD
Type of urinary catheter: straight cath
Catheter size ([place]): 15
Urine description: cloudy and yellow
Urine output (ml): 300
MDM/Problems Addressed
Differential Diagnosis Includes:
UTI, interstitial cystitis, hyperglycemia, electrolyte derangement; stroke considered less likely
MDM/Problems Addressed:
88-year-old male presents to the emergency room as a prehospital stroke alert activated by EMS for evaluation of speech difficulties. He was immediately brought to the CT scanner for CT head which was reviewed in real-time and showed no acute
abnormalities. CTA head and neck showed nothing acute. Neurology at bedside and assessed, not a TNK candidate due to Eliquis. Feel his symptoms are more likely related to acute medical issue such as UTI and I agree. Usual labs sent off,
urinalysis. Check chest x-ray. Reassess after the above.
Labs shows leukocytosis to 16.9�added blood cultures. CMP shows hyperglycemia to 210. No DKA. Nurse had difficulty with obtaining urine sample�straight cath performed by me and urine sent off for UA and culture. Cover with Maxipime. Will admit
for continued management of generalized weakness/lethargy secondary to complicated UTI. Discussed case with hospitalist.
Chronic conditions affecting care:
A-fib on Eliquis
*Radiology
Radiology exam reviewed: radiology read reviewed
*Pulse Oximetry
Patient hypoxic: no
*EKG
Interpreted by ED Provider?: Yes
Heart Rate: 78
Rate: normal
Rhythm: sinus
[place]: left axis deviation
Interval: normal interval
QRS Pattern: right bundle branch block (Incomplete)
*Critical Care Note
Total Time (30-74mins, 75-104mins- exclusive of procedures): Not Applicable
Data Reviewed
Review of Other/Old Records Reveals: Labs, Records and Discharge Summary
Source: patient, records, spouse and ambulance crew
Prescriptions/Medications Considered But Not Given:
Considered tenecteplase
Patient Management
Discussion with other providers: Hospitalist (Discussed with hospitalist) and Political Science Research Assistant (Discussed with neurologist)
Escalation/DeEscalation of care consider admission/obs:
Admission indicated
ED Attending Note
-
Portions of this chart may have been created with voice recognition software.� Occasional wrong word or��sound alike� substitutions may have occurred due to the inherent limitations of voice recognition software.
Discharge Plan
Departure
Discharge Problem:
Acute UTI
Prescriptions:
No Action
tamsulosin 0.4 MG capsule
0.4 mg PO QPM
finasteride 5 MG tablet
5 mg PO QPM
Eliquis 5 MG tablet
5 mg PO BID Qty: 60 0RF
Systane (PF) 1 EACH dropperette
1 drops BOTH EYES BID
Januvia 100 MG tablet
100 mg PO DAILY
PreserVision AREDS 1 CAP capsule
1 cap PO DAILY
L.acidoph,paracasei,B.animalis 1 EACH capsule
1 ea PO DAILY
Novolin N NPH U-100 Insulin 1,000 UNITS/10 ML suspension
80 - 100 units SC BID
Patient Comments:
psyllium Packet
0.5 packet PO Q48H@2000
metformin 500 mg Tablet Extended Release 24 Hr
500 mg PO DAILY
methenamine hippurate 1 gram tablet
1 g PO BID Qty: 60 0RF
ascorbic acid (vitamin C) [Vitamin C] 1,000 mg tablet
500 mg PO BID Qty: 60 0RF
guaifenesin [Mucinex] 600 mg Tablet Extended Release 12hr
600 mg PO Q12H
pregabalin [Lyrica] 25 mg Capsule
25 mg PO DAILY
amlodipine 5 mg Tablet
5 mg PO DAILY 30 Days Qty: 0 0RF
prednisone 10 mg Tablet
See Rx Instructions .ROUTE .COMPLEX Qty: 30 0RF
Rx Instructions:
Take By Mouth:
40 mg daily x3 days, 30 mg daily x3 days,
20 mg daily x3 days, 10 mg daily x3 days.
Referrals:
Stacie Barker MD [Family Provider] -
Discharge Date and Time
Print Language: LAO
--- NOTE | 2024-09-09 13:04 | CON.NEURO ---
Neuro Assessment/Plan
Assessment
Head CT images rev'd, diffuse atrophy
CTA head/neck imgs and rept rev'd, left carotid 60% stenosis, right carotid 45% stenosis - I cannot appreciate
brain MRI 04/2019 imgs rev'd, several small infarcts L MCA territory
aphasia, probably recrudescence of prior stroke which presented similarly in 04/2019, particularly if there is an acute medical illness. with moderate left carotid stenosis and afib, certainly also possible that he stroked more. stroke secondary
prevention continue Eliquis. would start statin.
Consultation
Order
Date of Consultation: 09/09/24
Requesting Provider: Jules Abreu
Reason for Consult: stroke alert
Subjective/Objective
Subjective Data
Date of Service: September 09, 2024
seen during stroke alert ~12:45 pm
88 y/o pt with stroke, afib, HTN, DM, RBBB, GUILLERMO, prior Takotsubo, macular degeneration who lives at [facility] with his . prior stroke 04/2019 presented with aphasia x several hours, found several several small areas of infarction left MCA
territory, made a full recovery. This am ~9:45 sudden aphasia, gell gently on his knees and let himself down onto the floor, witnessed by his . Afib on Eliquis.
Objective Data
Vital Signs
Temp Pulse Resp BP Pulse Ox
36.7 C 81 18 116/55 94
09/09/24 12:36 09/09/24 12:36 09/09/24 12:36 09/09/24 12:36 09/09/24 12:36
Patient Allergies
adhesive tape Allergy (Verified 08/06/24 17:39)
Rash
amoxicillin [From Augmentin] Allergy (Verified 08/06/24 17:39)
Nausea/DIARRHEA
clavulanic acid [From Augmentin] Allergy (Verified 08/06/24 17:39)
Nausea/DIARRHEA
metoprolol [From Toprol XL] Allergy (Verified 08/06/24 17:39)
Rash
mushroom Allergy (Verified 08/06/24 17:39)
Shortness of Breath
pollen extracts Allergy (Verified 08/06/24 17:39)
Itching, sneezing - seasonal
tramadol Allergy (Verified 08/06/24 17:39)
Unknown
CVA Assessment
Onset of Stroke Symptoms
Onset of symptoms known: Yes
Date of onset of symptoms: 09/09/24
Time of onset of symptoms: 09:45
NIH Stroke Score
Level of Consciousness: 1 - Arousable
LOC Questions: 2-Neither correct
LOC Commands: 0-Performs both correctly
Best Horizontal Gaze: 0-Normal
Visual Fuchs: 0=Normal, no visual loss
Facial Palsy: 0=Normal, symmetrical
Motor - Right Arm: 0=No drift 10 seconds
Motor - Left Arm: 0=No drift 10 seconds
Motor - Right Le-No drift 5 seconds
Motor - Left Le-No drift 5 seconds
Limb Ataxia: 0-Absent
Sensation: 0-Normal
Best Language: 2-Severe aphasia
Dysarthria: 0-Normal
Extinction and Inattention: 0-No abnormality
NIH Total Score:: 5
Tenecteplase Contraindications
Inclusion and Exclusion criteria reviewed: Yes
Reasons for NON-Tx with Thrombolytics ABSOLUTE Exclusions: Patient taking oral anticoagulant and last dose within 48 hours
Physical Exam
-
easily arousable, disoriented, aphasic, conversant but unable to identify any of the pictures (sees a face) or read the words
VFF, EOMI, face symmetric
full strength b/l UE/lE
sensation intact to touch
Medications
-
Home Medications
�Medication �Instructions �Recorded
finasteride 5 mg tablet 5 mg PO QPM Urinary issue 04/21/11
tamsulosin 0.4 mg capsule 0.4 mg PO QPM Urinary issue 04/21/11
apixaban 5 mg tablet (Eliquis) 5 mg PO BID #60 tabs 05/15/19
L.acidoph,paracasei,B.animalis 10 1 ea PO DAILY Gastrointestinal 08/08/20
billion cell capsule issue
insulin NPH isoph U-100 human 100 80 - 100 units SC BID Diabetes 08/08/20
unit/mL subcutaneous suspension
(Novolin N NPH U-100 Insulin
isophane)
peg 400-propylene glycol (PF) 0.4 1 drops BOTH EYES BID Eye condition 08/08/20
%-0.3 % eye drops in a dropperette
(Systane (PF))
sitagliptin phosphate 100 mg 100 mg PO DAILY Diabetes 08/08/20
tablet (Januvia)
vitamins A,C,F-oosd-juxpvp 4,296 1 cap PO DAILY Supplement 08/08/20
mcg-226 mg-90 mg capsule
(PreserVision AREDS)
metformin 500 mg tablet,extended 500 mg PO DAILY Diabetes 12/29/21
release 24 hr
psyllium 0.5 packet PO Q48H@2000 12/29/21
Constipation
ascorbic acid (vitamin C) 1,000 mg 500 mg (1/2 x 1,000 mg) PO BID #60 01/01/22
tablet (Vitamin C) tabs
methenamine hippurate 1 gram tablet 1 g PO BID #60 tabs 01/01/22
guaifenesin 600 mg tablet, 600 mg PO Q12H cough 03/03/24
extended release 12 hr (Mucinex)
pregabalin 25 mg capsule (Lyrica) 25 mg PO DAILY Pain 04/20/24
amlodipine 5 mg tablet 5 mg PO DAILY 30 days #0 tabs 04/26/24
prednisone 10 mg tablet See Rx Instructions .Route 04/26/24
.COMPLEX #30 tabs
[2024-09-09 13:46] LABS: % Basophils 0.2 % (0-2); % Eosinophils 0.1 % (0-6); % Immature Granulocytes 0.5 % (0-0.5); % Lymphocytes 4.1 % (20.5-51.1); % Neutrophils 92.1 % (42.2-75.2); Absolute Immature Granulocytes 0.1 10^3/uL (0-0.05); Absolute Lymphocytes 0.7 10^3/uL (1.2-3.4); Absolute Monocytes 0.5 10^3/uL (0.1-0.6); Absolute Neutrophils 15.5 10^3/uL (1.4-6.5); Hematocrit 39.8 % (39.0-52.0); Hemoglobin 13.5 g/dL (13.0-18.0); Mean Corp Hgb Conc. 33.9 g/dL (33.0-37.0); Mean Corpuscular Hgb 33.1 pg (27.0-31.0); Mean Corpuscular Volume 97.5 fL (80.0-94.0); Mean Platelet Volume 10.4 fL (7.4-10.4); Nucleated Red Blood Cells % 0 % (-); Platelet Count 187 10^3/uL (130-400); Red Blood Cell Count 4.08 10^6/uL (4.70-6.10); Red Cell Dist. Width 13.3 % (11.5-14.5); White Blood Cell Count 16.9 10^3/uL (4.8-10.8)
[2024-09-09 13:59] LABS: ALT (SGPT) 13 U/L (0-50); AST (SGOT) 15 U/L (17-59); Albumin 3.6 g/dl (3.5-5.0); Alkaline Phosphatase 61 U/L (38-126); Blood Urea Nitrogen 15 mg/dl (9-20); Calcium 8.7 mg/dl (8.4-10.2); Carbon Dioxide 23 mmol/L (22-30); Chloride 108 mmol/L (98-107); Estimated Creatinine Clearance 70 ml/min; Glucose 210 mg/dl (70-99); Potassium 4.6 mmol/L (3.5-5.1); Sodium 137 mmol/L (135-145); Total Bilirubin 1.3 mg/dl (0.2-1.3); Total Protein 6.2 g/dl (6.3-8.2); eGFR > 60.00
[2024-09-09 14:00] LABS: PT 15.5 Sec (11.4-14.6)
[2024-09-09 14:01] LABS: APTT 33.2 Sec (23.4-35.0)
[2024-09-09 15:38] LABS: Urine Albumin 2+ (Neg - Trace); Urine Bilirubin Negative (Negative); Urine Character Clear (Clear); Urine Color Yellow; Urine Glucose Negative (Negative); Urine Ketone Negative (Negative); Urine Leukocyte 1+ (Negative); Urine Nitrite Negative (Negative); Urine Occult Blood 1+ (Negative); Urine Urobilinogen Negative (Neg - 1+)
[2024-09-09 16:08] LABS: Urine Bacteria Few (Negative); Urine Squamous Cell 0-2 /LPF (Few)
--- NOTE | 2024-09-09 16:36 | HPS.HSE ---
Addendum entered and electronically signed by Catherine Foy MD 09/09/24 18:51:
Gave dose of 40 IV Lasix.
Original Note:
Family Physician
-
Family Physician: Stacie Barker
Chief Complaint
-
weakness,
History of Present Illness
88-year-old male past medical history of type 2 diabetes, hypertension, obesity, pulmonary nodules, TIA, CVA, hypercholesterolemia, obstructive sleep apnea, presenting from [facility] as prehospital stroke alert due to speech difficulties. Chief
concern was weakness and sluggishness. As per patient has been having urinary symptoms since April and has been on repeated course of antibiotics. He recently completed fosfomycin 2 doses this past Tuesday. He developed urinary frequency
pain with urination again so was started on Macrobid yesterday.
Today he woke up very weak and could not support himself. He was bit sluggish. He had fever 100.1 today. Per EMS he was having speech difficulties and word finding issues. denies any speech difficulties. She thinks he looks dry and he was
confused. He denies any focal weakness. Denies headache, back pain, abdominal pain, chest pain or shortness of breath or any other complaints. No nausea or vomiting.
As per his symptoms did not resemble his prior TIA since she denies aphasia at this time.
He has recently been having cough but no shortness of breath. No swelling in legs.
Medical History
Past Medical History
Past Medical History: Reports Other (type 2 diabetes, hypertension, obesity, pulmonary nodules, TIA, CVA, hypercholesterolemia, obstructive sleep apnea)
Past Surgical History: Reports None
Social History
Tobacco: Non-smoker
Alcohol: None
Drug: None
Family History
Family History: Not pertinent
Allergies / Home Medications
Allergies reflects when Allergies were last updated in [employer].
Home Medications with original date entered in [employer]
Allergy/Medication List:
Allergies
Allergy/AdvReac Type Severity Reaction Status Date / Time
adhesive tape Allergy Rash Verified 08/06/24 17:39
amoxicillin [From Augmentin] Allergy Nausea/DIAR Verified 08/06/24 17:39
MICHAEL
clavulanic acid Allergy Nausea/DIAR Verified 08/06/24 17:39
[From Augmentin] MICHAEL
metoprolol [From Toprol XL] Allergy Rash Verified 08/06/24 17:39
mushroom Allergy Shortness Verified 08/06/24 17:39
of Breath
pollen extracts Allergy Itching, Verified 08/06/24 17:39
sneezing -
seasonal
tramadol Allergy Unknown Verified 08/06/24 17:39
Home Medications
finasteride 5 mg tablet 5 mg PO QPM Urinary issue 04/21/11
tamsulosin 0.4 mg capsule 0.4 mg PO QPM Urinary issue 04/21/11
apixaban 5 mg tablet (Eliquis) 5 mg PO BID #60 tabs 05/15/19
insulin NPH isoph U-100 human 100 unit/mL subcutaneous suspension (Novolin N NPH U-100 Insulin isophane) See Rx Instructions .Route .COMPLEX Diabetes 08/08/20
sitagliptin phosphate 100 mg tablet (Januvia) 100 mg PO DAILY Diabetes 08/08/20
vitamins A,C,Z-wnjj-fopgnk 4,296 mcg-226 mg-90 mg capsule (PreserVision AREDS) 1 cap PO BID Supplement 08/08/20
methenamine hippurate 1 gram tablet 1 g PO BID #60 tabs 01/01/22
guaifenesin 600 mg tablet, extended release 12 hr (Mucinex) 600 mg PO Q12H cough 03/03/24
pregabalin 25 mg capsule (Lyrica) 25 mg PO DAILY Pain 04/20/24
Lactobac no.2-Bifidobac no.1-S. thermo 112.5 billion cell capsule (Visbiome) 1 cap PO DAILY 09/09/24
acetaminophen 500 mg tablet 1,000 mg PO BID 09/09/24
ascorbic acid (vitamin C) 500 mg chewable tablet 500 mg PO BID 09/09/24
cranberry fruit 450 mg tablet (cranberry) 450 mg PO DAILY 09/09/24
midodrine 5 mg tablet 5 mg PO DAILY 09/09/24
nitrofurantoin macrocrystal 100 mg capsule 100 mg PO HS 09/09/24
Review of Systems
-
History Source: Patient
A 12 point ROS was completed and negative except as noted: Yes
Constitutional: Reports No Symptoms
EENT: Reports No Symptoms
Respiratory: Reports See HPI
Cardiac: Reports See HPI
Abdomen/GI: Reports No Symptoms
: Reports No Symptoms
Musculoskeletal: Reports No Symptoms
Skin: Reports No Symptoms
Neurological: Reports No Symptoms
Endocrine: Reports No Symptoms
Hematologic/Lymphatic: Reports No Symptoms
Psych: Reports No Symptoms
Physical Exam
Vital Signs
Vital Signs
Temp Pulse Resp BP Pulse Ox
98.1 F 80 21 131/59 98
09/09/24 12:36 09/09/24 14:15 09/09/24 14:15 09/09/24 14:01 09/09/24 14:15
Physical Exam
General: Well Developed, Well Nourished and No Apparent Distress
HEENT: NormoCephalic, Moist mucous membranes and Atraumatic
Respiratory: Clear
Cardiac: S1/S2 and Regular Rhythm; No Murmur or Rub
GI: Soft, Non Tender, Non Distended and Normal Bowel Sounds; No Organomegaly
Rectal: Deferred by Provider
Musculoskeletal: No Clubbing, No Cyanosis and No Edema
Skin: No Rash
Neuro: Nonfocal/grossly intact
Laboratory Results
-
09/09/24 13:31
09/09/24 13:31
Laboratory Results
PT 15.5 Sec (11.4-14.6) H 09/09/24 13:31
INR 1.20 09/09/24 13:31
APTT 33.2 Sec (23.4-35.0) 09/09/24 13:31
Total Bilirubin 1.3 mg/dl (0.2-1.3) 09/09/24 13:31
AST 15 U/L (17-59) L 09/09/24 13:31
ALT 13 U/L (0-50) 09/09/24 13:31
Alkaline Phosphatase 61 U/L (38-126) 09/09/24 13:31
Data Reviewed
-
Lab Data: Labs Reviewed by me
Old Records: Reviewed
Impression/Plan
-
IMPRESSION:
PLAN:
# Acute metabolic encephalopathy likely secondary to UTI vs less likely recrudescence of prior TIA
-Leukocytosis and fever at home supports UTI diagnosis
-UA not convincing however he has been on antibiotics
-Given IV fluids in ER
-CTA head and neck shows no evidence of high-grade stenosis or occlusion
- Continue Eliquis
- Urine culture
- Ceftriaxone
- Seen by neurology
# Cough possibly secondary to CHF
- Chest x-ray shows mild pulmonary edema
- No history of heart failure
- Currently on 2 L oxygen, wean oxygen and see if hypoxemic, may require Lasix although not overtly in CHF exacerbation
- Was given IV fluids in ER
Type 2 diabetes
- Hold metformin, Januvia
-Insulin sliding scale
-Continue NPH
Atrial fibrillation
-Continue Eliquis
Essential hypertension
Orthostatic hypotension
- Continue midodrine
Obesity
Pulmonary nodules
History of TIA/CVA
Hypercholesterolemia
Obstructive sleep apnea
- Continue CPAP
History of lumbar laminectomy
- Continue pregabalin
BPH
-Continue tamsulosin, finasteride
Macular degeneration
GERD
-continue Protonix
DNR/DNI
DVT prophylaxis�Eliquis
Regular diet
[2024-09-09] MEDS: MAXIPIME 1000 MG IV (17:09)
--- NOTE | 2024-09-09 18:43 | PTCARENOTE ---
Addendum entered by Ginger Person RN 09/09/24 19:19:
NIH 4. Pt with unable to answer month/age, mild slurring and aphasia. Pt reports difficulty being able to see the packet d/t hx macular degeneration.
Original Note:
Received pt from ED into room 401-2. Pulled over to bed. 3L O2, pox 98%. Inc of bowel and bladder after arrival. Pt reports no pain. No complaints at this time.
[2024-09-09] MEDS: STERILE WATER FOR INJECTION 10 ML IV (20:04)
[2024-09-09] MEDS: LASIX 40 MG IV (20:04)
[2024-09-09] MEDS: ROCEPHIN 1000 MG IV (20:04)
[2024-09-09] MEDS: VITAMIN C 500 MG PO (20:13)
[2024-09-09] MEDS: OCUVITE SOFTGEL 1 CAP PO (20:13)
[2024-09-09] MEDS: ELIQUIS 5 MG PO (20:13)
[2024-09-09] MEDS: MUCINEX 600 MG PO (20:13)
[2024-09-09] MEDS: PROSCAR 5 MG PO (20:13)
[2024-09-09] MEDS: TYLENOL 1000 MG PO (20:13)
[2024-09-09] MEDS: FLOMAX 0.4 MG PO (20:13)
[2024-09-09 21:29] LABS: Glucose - Point of Care 122 mg/dl (70-99)
--- NOTE | 2024-09-09 22:53 | RESPNOTE ---
Pt refuses our cpap machine tonight. He states his will bring his tomorrow.
[2024-09-10 03:12] VITALS: BP 133/71
[2024-09-10 05:18] VITALS: BMI 35.2
[2024-09-10] MEDS: MUCINEX 600 MG PO ×2 (06:15→19:40)
[2024-09-10 06:49] LABS: % Basophils 0.1 % (0-2); % Eosinophils 3.3 % (0-6); % Immature Granulocytes 0.4 % (0-0.5); % Lymphocytes 13.5 % (20.5-51.1); % Monocytes 6.4 % (1.7-9.3); % Neutrophils 76.3 % (42.2-75.2); Absolute Eosinophils 0.3 10^3/uL (0-0.7); Absolute Lymphocytes 1.3 10^3/uL (1.2-3.4); Absolute Monocytes 0.6 10^3/uL (0.1-0.6); Absolute Neutrophils 7.5 10^3/uL (1.4-6.5); Hematocrit 38.9 % (39.0-52.0); Hemoglobin 13.3 g/dL (13.0-18.0); Mean Corp Hgb Conc. 34.2 g/dL (33.0-37.0); Mean Corpuscular Hgb 33.2 pg (27.0-31.0); Mean Platelet Volume 10.4 fL (7.4-10.4); Nucleated Red Blood Cells % 0 % (-); Platelet Count 175 10^3/uL (130-400); Red Blood Cell Count 4.01 10^6/uL (4.70-6.10); Red Cell Dist. Width 13.2 % (11.5-14.5); White Blood Cell Count 9.8 10^3/uL (4.8-10.8)
[2024-09-10 07:00] VITALS: BP 139/75
[2024-09-10 07:06] LABS: ALT (SGPT) < 10 U/L (0-50); AST (SGOT) 15 U/L (17-59); Albumin 3.7 g/dl (3.5-5.0); Alkaline Phosphatase 64 U/L (38-126); Blood Urea Nitrogen 17 mg/dl (9-20); Calcium 8.7 mg/dl (8.4-10.2); Carbon Dioxide 29 mmol/L (22-30); Chloride 105 mmol/L (98-107); Estimated Creatinine Clearance 69 ml/min; Glucose 157 mg/dl (70-99); Sodium 141 mmol/L (135-145); Total Bilirubin 1.5 mg/dl (0.2-1.3); Total Protein 6.4 g/dl (6.3-8.2); eGFR > 60.00
[2024-09-10 07:57] LABS: Glucose - Point of Care 185 mg/dl (70-99)
[2024-09-10] MEDS: LYRICA 25 MG PO (08:21)
[2024-09-10] MEDS: ELIQUIS 5 MG PO ×2 (08:21→19:40)
[2024-09-10] MEDS: VITAMIN C 500 MG PO ×2 (08:21→19:41)
[2024-09-10] MEDS: OCUVITE SOFTGEL 1 CAP PO ×2 (08:21→19:40)
[2024-09-10] MEDS: TYLENOL 1000 MG PO ×2 (08:21→19:41)
[2024-09-10] MEDS: VISBIOME 1 CAP PO (08:22)
[2024-09-10] MEDS: ProAmatine 5 MG PO (08:22)
[2024-09-10] MEDS: NOVOLIN N vial 0.6 UNITS SC (08:55)
[2024-09-10] MEDS: ZOFRAN 4 MG IV ×2 (10:45→19:47)
[2024-09-10] MEDS: NSS (PRESERVATIVE FREE) 10 ML IV (10:45)
[2024-09-10] MEDS: PROTONIX IV 40 MG IV (10:45)
[2024-09-10] MEDS: 0.45%NACL 1000 IV ×2 (10:59→21:53)
[2024-09-10 11:00] VITALS: BP 116/59
[2024-09-10 12:25] LABS: Glucose - Point of Care 211 mg/dl (70-99)
--- NOTE | 2024-09-10 13:40 | W.PN.NEURO.1 ---
Today's Communication / Plan
-
brain MRI
Neuro Assessment/Plan
Assessment
Head CT images rev'd, diffuse atrophy
CTA head/neck imgs and rept rev'd, left carotid 60% stenosis, right carotid 45% stenosis - I cannot appreciate
brain MRI 04/2019 imgs rev'd, several small infarcts L MCA territory
aphasia, probably recrudescence of prior stroke which presented similarly in 04/2019, particularly if there is an acute medical illness. with moderate left carotid stenosis and afib, certainly also possible that he stroked more. stroke secondary
prevention continue Eliquis. would start statin.
spoke to his that I don't believe this is a new stroke, and even if we did see a new stroke on MRI, his stroke risk from the left carotid moderate would be in the high single digits % per year, and with his overall poor health and dementia, he
would not want to have surgery to lower the stroke risk
Subjective/Objective
Subjective Data
Date of Service: September 10, 2024
seen at bedside with this . he denies any active complaints, speech is improving. says this is what happens when he has a UTI, he gets lethargic and confused
Objective Data
Vital Signs
Temp Pulse Resp BP Pulse Ox
36.6 C 85 18 116/59 94
09/10/24 11:00 09/10/24 11:00 09/10/24 11:00 09/10/24 11:00 09/10/24 11:00
Lab Results
09/10/24 05:42
09/10/24 05:42
PT 15.5 Sec (11.4-14.6) H 09/09/24 13:31
INR 1.20 09/09/24 13:31
APTT 33.2 Sec (23.4-35.0) 09/09/24 13:31
Sodium 141 mmol/L (135-145) 09/10/24 05:42
Potassium 4.0 mmol/L (3.5-5.1) 09/10/24 05:42
BUN 17 mg/dl (9-20) 09/10/24 05:42
Glucose 157 mg/dl (70-99) H 09/10/24 05:42
Calcium 8.7 mg/dl (8.4-10.2) 09/10/24 05:42
Patient Allergies
adhesive tape Allergy (Verified 08/06/24 17:39)
Rash
amoxicillin [From Augmentin] Allergy (Verified 08/06/24 17:39)
Nausea/DIARRHEA
clavulanic acid [From Augmentin] Allergy (Verified 08/06/24 17:39)
Nausea/DIARRHEA
metoprolol [From Toprol XL] Allergy (Verified 08/06/24 17:39)
Rash
mushroom Allergy (Verified 08/06/24 17:39)
Shortness of Breath
pollen extracts Allergy (Verified 08/06/24 17:39)
Itching, sneezing - seasonal
tramadol Allergy (Verified 08/06/24 17:39)
Unknown
Physical Exam
-
easily arousable, disoriented, aphasic
VFF, EOMI, face symmetric
full strength b/l UE/lE
sensation intact to touch
--- NOTE | 2024-09-10 13:58 | W.PN.HOSP.TC ---
Addendum entered and electronically signed by Daryn Harp MD 09/10/24 16:01:
88 male history of type II, hypertension, obesity, pulmonary nodules, TIA/CVA, HLD, who presented with chief concern of weakness and sluggishness. Has a known history of recurrent UTIs and has been receiving different courses of antibiotics since
April last prescribed by his urologist.
Toxic metabolic encephalopathy unclear if this is acute stroke or infectious related. Urine analysis not consistent with UTI however on antibiotics. Urine culture pending what would be surprised if it grows anything out. Will obtain MRI brain
neurology to evaluate.
Delirium unclear as to etiology could be hospital-acquired or infectious related. Continue Rocephin for now offered Zyprexa however declined. Hold Lyrica
Atrial fibrillation paroxysmal
And currently in sinus rhythm, continue Eliquis
Diabetes insulin-dependent continue NPH Accu-Chek sliding scale goal blood glucose 140-180 carb controlled diet
Orthostatic hypotension continue midodrine
Pulmonary nodules follow-up with PCP
BPH continue finasteride and Flomax
Original Note:
Today's Communication/Plan
-
MRI brain
Neurology consult
Add Zyprexa
Hold Lyrica
Follow urine culture
Continue IV antibiotics
Aspiration precautions
Obstruction series
Assessment / Plan
Assessment / Plan
IMPRESSION:
Patient is a 88-year-old male, past medical history significant for recurrent UTIs, has been on multiple antibiotics including Bactrim, nitrofurantoin, fosfomycin and as per his he is very confused and disoriented when he has a UTI. He is
diabetic and has history of BPH. Not on any SGLT2 inhibitors. Had been on antibiotics prior to coming to the hospital, hence urine analysis questionable. Urine culture is pending. 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
left carotid stenosis and A-fib. He was evaluated with head CT scan/CTA head neck images and reported to have left carotid stenosis 60% and right carotid stenosis 45%. Brain MRI 04/2019 images reviewed several small infarcts in left MCA territory.
As per neuro, this does not seem to be a new stroke but the risk of stroke from left carotid stenosis remains high with overall poor health and dementia. Patient would not want to have surgery to lower the stroke risk.
Assessment/PLAN:
# Acute metabolic encephalopathy likely secondary to UTI vs less likely recrudescence of prior TIA
History of recurrent UTIs, ER urine analysis not consistent, but he was on antibiotics
Currently on ceftriaxone 1 g every 24 hours, continue
Follow urine culture
Evaluated for confusion, change in mental status, inability to stand due to bilateral leg weakness by neurology, neurology recommendations appreciated
Continue Eliquis, start high-dose statin
Head CT images rev'd, diffuse atrophy
CTA head/neck imgs and rept rev'd, left carotid 60% stenosis, right carotid 45% stenosis - I cannot appreciate
brain MRI 04/2019 imgs rev'd, several small infarcts L MCA territory
No carotid surgical intervention as requested by the patient
Brain MRI ordered today for increasing confusion
Follow MRI results
Frequent reorientation
Start Zyprexa-patient's refused to start Zyprexa
#Aspiration event?
Patient having repeated episodes of vomiting in the morning
Based on previous speech evaluation, shifted to soft and bite-size food
Started on Zofran
QTc interval 478
Started IV fluids
Started PPI and sucralfate as patient reports burning
,Distended abdomen, obstruction series requested
Speech evaluation pending
# Delirium/confusion
Possibly exacerbated by hospitalization and history of stroke
Discontinue Lyrica
Suggested Zyprexa which the patient's refused
Type 2 diabetes
Uncontrolled blood sugar
Start low resistance insulin sliding scale and continue NPH
Hold metformin, Januvia
Other stable medical condition
Possible CHF- Chest x-ray shows mild pulmonary edema- No history of heart failure- Currently on 2 L oxygen, wean oxygen and see if hypoxemic/possible CHF secondary to GUILLERMO exacerbation
Atrial fibrillation-Continue Eliquis
Essential hypertension-continue medications as able
Orthostatic hypotension- Continue midodrine
Obesity
Pulmonary nodules
History of TIA/CVA
Hypercholesterolemia
Obstructive sleep apnea- Continue CPAP
History of lumbar laminectomy- Continue pregabalin
BPH-Continue tamsulosin, finasteride
Macular degeneration
GERD
-continue Protonix
DNR/DNI
DVT prophylaxis�Eliquis
IDDSI 6 soft and bite sized
Anticipated Discharge: 24 - 48 hours
Subjective/Interval History
-
Date of Service: September 10, 2024
Patient vomiting repeatedly, appears very sad with his condition, very confused
Objective Data
-
Labs:
Laboratory Results
09/10/24
05:42
WBC 9.8
Hgb 13.3
Hct 38.9 L
Plt Count 175
Sodium 141
Potassium 4.0
Chloride 105
Carbon Dioxide 29
BUN 17
Creatinine 1.0
Glucose 157 H
Calcium 8.7
Total Bilirubin 1.5 H
AST 15 L
ALT < 10
Alkaline Phosphatase 64
Vital Signs:
Vital Signs
Temp Pulse Resp BP Pulse Ox
97.9 F 85 18 116/59 94
09/10/24 11:00 09/10/24 11:00 09/10/24 11:00 09/10/24 11:00 09/10/24 11:00
Review of Systems
-
Unable to obtain full review of systems at this time due to: Other (Patient very confused, suggested that this is the baseline he has when he suffers from a UTI)
Physical Exam
-
General: Appears Chronically Ill, Morbidly Obese and Other (Confused and on 2 L of oxygen)
HEENT: Moist Mucous Membranes and Other (Appears pale and is on 2 L of oxygen)
Respiratory: Crackles (Coarse crackles bilaterally) and Other (Harsh vesicular breathing)
Cardiac: Regular Rhythm and S1/S2
GI: Soft, Nontender, Normal Bowel Sounds and Distended
Musculoskeletal: No Clubbing, No Cyanosis and No Edema
Skin: Warm and Dry
Neuro: Awake and Other (not oriented to time or place)
Psych: Confused and Agitated
[2024-09-10] MEDS: CARAFATE SUSPENSION 1 GM PO ×2 (16:55→20:59)
[2024-09-10 17:00] VITALS: BP 130/56
[2024-09-10 17:04] LABS: Glucose - Point of Care 159 mg/dl (70-99)
--- NOTE | 2024-09-10 17:17 | CM ---
Sleepy forgetful patient who lives with his Cely at [facility] independent living but is assisted by . He is assisted all activities of daily living.He uses a walker and scooter.Spoke with she is also ill at home.Pt will continue to
see him . OT is to see him too.
[facility]
Pharmacy [address] or [facility]
PCP DR Tapia
PLAN Will need PT OT evals posable SNF
--- NOTE | 2024-09-10 17:18 | CM ---
Pt off floor at MRI . LM for to call for IA.
[2024-09-10] MEDS: NOVOLIN N vial 0.5 UNITS SC (17:45)
[2024-09-10] MEDS: FLOMAX 0.4 MG PO (17:47)
[2024-09-10] MEDS: PROSCAR 5 MG PO (17:47)
[2024-09-10] MEDS: NOVOLOG FLEXPEN-LOW RESISTANCE 1 UNITS SC (18:00)
[2024-09-10] MEDS: ROCEPHIN 1000 MG IV (19:40)
[2024-09-10] MEDS: STERILE WATER FOR INJECTION 10 ML IV (19:40)
[2024-09-10 19:45] VITALS: BP 132/64
--- NOTE | 2024-09-10 19:55 | PTCARENOTE ---
Pt complained of nausea. RN given Zofran. At 23:00, pt still complaining of nausea but no vomiting. [employer] made aware- no new orders at this time.
[2024-09-10 21:14] LABS: Glucose - Point of Care 98 mg/dl (70-99)
[2024-09-10 23:17] VITALS: BP 134/68
[2024-09-11] VITALS (8 sets, daily range): BP systolic 120–135; BP diastolic 57–81; BMI 34.0
[2024-09-11] MEDS: MUCINEX 600 MG PO (06:22)
[2024-09-11] MEDS: 0.45%NACL 1000 IV ×3 (06:28→21:59)
[2024-09-11] MEDS: ZOFRAN 4 MG IV (06:29)
[2024-09-11 07:03] LABS: % Basophils 0.1 % (0-2); % Eosinophils 0.6 % (0-6); % Immature Granulocytes 0.3 % (0-0.5); % Lymphocytes 11.7 % (20.5-51.1); % Monocytes 6.3 % (1.7-9.3); Absolute Eosinophils 0.1 10^3/uL (0-0.7); Absolute Lymphocytes 1.4 10^3/uL (1.2-3.4); Absolute Monocytes 0.7 10^3/uL (0.1-0.6); Absolute Neutrophils 9.3 10^3/uL (1.4-6.5); Hematocrit 36.4 % (39.0-52.0); Hemoglobin 12.3 g/dL (13.0-18.0); Mean Corp Hgb Conc. 33.8 g/dL (33.0-37.0); Mean Corpuscular Volume 97.6 fL (80.0-94.0); Mean Platelet Volume 10.6 fL (7.4-10.4); Nucleated Red Blood Cells % 0 % (-); Platelet Count 180 10^3/uL (130-400); Red Blood Cell Count 3.73 10^6/uL (4.70-6.10); Red Cell Dist. Width 13.1 % (11.5-14.5); White Blood Cell Count 11.5 10^3/uL (4.8-10.8)
--- NOTE | 2024-09-11 07:48 | W.PN.HOSP.TC ---
Addendum entered and electronically signed by Daryn Harp MD 09/11/24 16:24:
88 male history of type II, hypertension, obesity, pulmonary nodules, TIA/CVA, HLD, who presented with chief concern of weakness and sluggishness. Has a known history of recurrent UTIs and has been receiving different courses of antibiotics since
April last prescribed by his urologist.
Toxic metabolic encephalopathy unclear if this is acute stroke or infectious related. Urine analysis not consistent with UTI however on antibiotics. Urine culture pending what would be surprised if it grows anything out. Will obtain MRI brain
neurology to evaluate.
Adynamic ileus place NGT, if not improving check CTAP surgery consult
Delirium unclear as to etiology could be hospital-acquired or infectious related. Continue Rocephin for now offered Zyprexa however declined. Hold Lyrica
Atrial fibrillation paroxysmal
And currently in sinus rhythm, continue Eliquis
Diabetes insulin-dependent continue NPH Accu-Chek sliding scale goal blood glucose 140-180 carb controlled diet
Orthostatic hypotension continue midodrine
Pulmonary nodules follow-up with PCP
BPH continue finasteride and Flomax
Original Note:
Today's Communication/Plan
-
Shift to IMU
Strictly n.p.o.
Place NGT
Neurochecks
Surgical consult
Assessment / Plan
Assessment / Plan
IMPRESSION:
Patient is a 88-year-old male, past medical history significant for recurrent UTIs, has been on multiple antibiotics including Bactrim, nitrofurantoin, fosfomycin and as per his he is very confused and disoriented when he has a UTI. He is
diabetic and has history of BPH. Not on any SGLT2 inhibitors. Had been on antibiotics prior to coming to the hospital, hence urine analysis questionable. Urine culture is pending. 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
left carotid stenosis and A-fib. He was evaluated with head CT scan/CTA head neck images and reported to have left carotid stenosis 60% and right carotid stenosis 45%. Brain MRI 04/2019 images reviewed several small infarcts in left MCA territory.
As per neuro, this does not seem to be a new stroke but the risk of stroke from left carotid stenosis remains high with overall poor health and dementia. Patient would not want to have surgery to lower the stroke risk.
Assessment/PLAN:
# Abdominal distention secondary to adynamic ileus
Unclear etiology-infectious versus neurological
Ongoing abdominal distention since yesterday with repeated vomiting
Surgery consult appreciated-advised to keep n.p.o., nasogastric tube for decompression, IV fluids, no plans of surgery, monitor electrolytes, minimize narcotics
If no improvement in [address] scan with oral contrast
# Acute metabolic encephalopathy likely secondary to UTI vs less likely recrudescence of prior TIA
History of recurrent UTIs, ER urine analysis not consistent, but he was on antibiotics
Currently on ceftriaxone 1 g every 24 hours, continue
No growth on blood culture or urine culture in the last 24 hours
Brain MRI 09/10/2024
IMPRESSION:
1. No MRI evidence for acute infarct.
2. 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
3. Tiny chronic ischemic infarct in the superior left cerebellar hemisphere.
4. Minimal periventricular white matter leukoaraiosis.
5. Moderate diffuse cerebral and cerebellar volume loss.
6. 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
Continue Eliquis, start high-dose statin as per neuro
Prior stroke in 2019 and increasing confusion on this admission, neurology consult appreciated, overall general deconditioning, agreed that the patient would not want any surgery
#Aspiration event?
Patient having repeated episodes of vomiting in the morning
Currently n.p.o. for adynamic ileus and bowel decompression, video swallowing examination on hold
Started on Zofran
QTc interval 457
Continue IV fluids
Hold oral medications, strictly n.p.o.
# Delirium/confusion
Possibly exacerbated by hospitalization and history of stroke
Discontinued Lyrica
Suggested Zyprexa which the patient's refused
Other stable medical condition
Type 2 diabetes----HbA1c 7.6, glucose levels fairly controlled, can resume home medications including Januvia on discharge
Acute heart failure less likely based on clinical evaluation. Will follow proBNP levels
Paroxysmal atrial fibrillation-Continue Eliquis, currently rate controlled
Essential hypertension-continue medications as able
Orthostatic hypotension- Continue midodrine
Obesity
Pulmonary nodules
History of TIA/CVA
Hypercholesterolemia
Obstructive sleep apnea- Continue CPAP
History of lumbar laminectomy- Continue pregabalin
BPH-Continue tamsulosin, finasteride
Macular degeneration
GERD
-continue Protonix
DNR/DNI
DVT prophylaxis�Eliquis
NPO
Qtc - 457
Anticipated Discharge: 24 - 48 hours
Subjective/Interval History
-
Date of Service: September 11, 2024
Patient oriented to name and place. Demonstrates understanding of his condition and communicates back. Hoarseness of voice and distention of abdomen
Objective Data
-
Labs:
Laboratory Results
09/11/24
05:57
WBC 11.5 H
Hgb 12.3 L
Hct 36.4 L
Plt Count 180
Sodium Pending
Potassium Pending
Chloride Pending
Carbon Dioxide Pending
BUN Pending
Creatinine Pending
Glucose Pending
Calcium Pending
Total Bilirubin Pending
AST Pending
ALT Pending
Alkaline Phosphatase Pending
Vital Signs:
Vital Signs
Temp Pulse Resp BP Pulse Ox
98.6 F 77 20 135/61 92
09/11/24 03:06 09/11/24 03:06 09/11/24 03:06 09/11/24 03:06 09/11/24 03:06
I&O
09/10/24 09/11/24 09/12/24
06:59 06:59 06:59
Intake Total 790 / 790
Balance 790 / 790
Review of Systems
-
All other systems: Reviewed and negative
Physical Exam
-
General: Appears in Distress, Conversant, Appears Chronically Ill and Morbidly Obese
GI: Soft, Tender (Mildly tender with no rebound or guarding) and Distended
Musculoskeletal: No Clubbing, No Cyanosis and No Edema
Skin: Warm
Neuro: Awake (Easily arousable), Oriented (To name and place) and Nonfocal/Grossly Intact
Psych: Confused
[2024-09-11 07:49] LABS: ALT (SGPT) 10 U/L (0-50); AST (SGOT) 15 U/L (17-59); Albumin 3.5 g/dl (3.5-5.0); Alkaline Phosphatase 65 U/L (38-126); Blood Urea Nitrogen 22 mg/dl (9-20); Calcium 7.9 mg/dl (8.4-10.2); Carbon Dioxide 25 mmol/L (22-30); Chloride 107 mmol/L (98-107); Estimated Creatinine Clearance 68 ml/min; Glucose 145 mg/dl (70-99); Potassium 4.1 mmol/L (3.5-5.1); Sodium 139 mmol/L (135-145); Total Bilirubin 1.2 mg/dl (0.2-1.3); Total Protein 6.2 g/dl (6.3-8.2); eGFR > 60.00
[2024-09-11 07:53] LABS: Glucose - Point of Care 165 mg/dl (70-99)
[2024-09-11 08:08] LABS: Glycohemoglobin (HgbA1c) 7.6 % (4.0-5.6)
[2024-09-11] MEDS: PROTONIX IV 40 MG IV (09:29)
[2024-09-11] MEDS: NOVOLOG FLEXPEN-LOW RESISTANCE SC ×2 (09:30→17:00)
[2024-09-11] MEDS: NSS (PRESERVATIVE FREE) 10 ML IV (09:30)
--- NOTE | 2024-09-11 09:43 | PN.CDI ---
CDI
- -
CDI:
Physician Documentation Request
Admit Date: 09/09/24 17:15
Dear Doctor Law,
Patient admitted for encephalopathy.
09/09 CXR: 'Pulmonary vascular congestion.'
09/09 Lasix 40 mg IV administered
09/09 Nasal cannula flow 3-4L
09/10 Hospitalist PN: 'Possible CHF- Chest x-ray shows mild pulmonary edema- No history of heart failure- Currently on 2 L oxygen, wean oxygen and see if hypoxemic/possible CHF secondary to GUILLERMO exacerbation'
Please clarify the following:
____ - Acute HF was present on admission and is now resolved.
____ - Acute HF was present on admission and is still being monitored, evaluated or treated
____ - Acute HF was ruled out
____ - Acute HF is still a likely, suspected, probable diagnosis
____ - Other
Use of terms such as suspected, likely, concern for, or probable (associated with a specific diagnosis that is being evaluated, monitored, or treated as if it exists) are acceptable and can be coded in the inpatient setting, when documented at the
time of discharge.
Thank you,
Shira Phelps RN, BSN
CDI Specialist
Available via [employer] text
Please use your independent medical judgment in providing your response.
[2024-09-11] MEDS: NOVOLIN N vial SC (10:15)
[2024-09-11] MEDS: CARAFATE SUSPENSION PO ×4 (10:16→19:38)
[2024-09-11] MEDS: OCUVITE SOFTGEL PO ×2 (10:17→19:38)
[2024-09-11] MEDS: ProAmatine PO (10:17)
[2024-09-11] MEDS: ELIQUIS PO ×2 (10:17→19:38)
[2024-09-11] MEDS: TYLENOL PO ×2 (10:17→19:38)
[2024-09-11 10:18] LABS: Lipase 54 U/L (23-300)
[2024-09-11] MEDS: VISBIOME PO (10:18)
[2024-09-11] MEDS: VITAMIN C PO ×2 (10:18→19:38)
[2024-09-11 10:39] LABS: Glucose - Point of Care 203 mg/dl (70-99)
[2024-09-11] MEDS: NOVOLIN N vial 0.3 UNITS SC (10:42)
[2024-09-11] MEDS: NOVOLOG FLEXPEN-LOW RESISTANCE 2 UNITS SC (10:43)
--- NOTE | 2024-09-11 10:59 | CON.GS ---
Medical History
-
Chief Complaint: Abdominal distension
History of Present Illness:
Patient is a 88 yo M with a PMH of obesity, HTN, HLD, A-fib (on Eliquis), IDDM, CVA, GUILLERMO (on CPAP), chronic gait dysfunction, BPH, and s/p lumbar laminectomy. History is limited by patient's mental status. History was obtained by chart review.
Mr. Pedraza was admitted to on 09/09 with concerns for altered mental status. Workup ongoing, differential includes UTI versus neurological in origin. Over the past 24 hours he has had increased abdominal distention, nausea, and emesis prompting
an abdominal x-ray which demonstrates a dilated stomach and colon. Unable to obtain history as a relates to bowel movements or flatus.
Past Medical History
Past Medical History: Arrhythmias (A-fib), CVA, HTN, Hypercholesterolemia, IDDM and Other (Chronic gait instability, BPH)
Past Surgical History: Orthopedic (Lumbar laminectomy)
Social History
Tobacco: Non-Smoker
Alcohol: None
Drug: None
Family History
Family History: Reviewed & Not Pertinent
Allergies / Home Medications
Allergy/AdvReac Type Severity Reaction Status Date / Time
adhesive tape Allergy Rash Verified 08/06/24 17:39
amoxicillin [From Augmentin] Allergy Nausea/DIAR Verified 08/06/24 17:39
MICHAEL
clavulanic acid Allergy Nausea/DIAR Verified 08/06/24 17:39
[From Augmentin] MICHAEL
metoprolol [From Toprol XL] Allergy Rash Verified 08/06/24 17:39
mushroom Allergy Shortness Verified 08/06/24 17:39
of Breath
pollen extracts Allergy Itching, Verified 08/06/24 17:39
sneezing -
seasonal
tramadol Allergy Unknown Verified 08/06/24 17:39
�Medication �Instructions �Recorded �Confirmed �Type
finasteride 5 mg tablet 5 mg PO QPM Urinary issue 04/21/11 09/09/24 History
tamsulosin 0.4 mg capsule 0.4 mg PO QPM Urinary issue 04/21/11 09/09/24 History
apixaban 5 mg tablet (Eliquis) 5 mg PO BID #60 tabs 05/15/19 09/09/24 Rx
insulin NPH isoph U-100 human 100 See Rx Instructions .Route 08/08/20 09/09/24 History
unit/mL subcutaneous suspension .COMPLEX Diabetes
(Novolin N NPH U-100 Insulin
isophane)
sitagliptin phosphate 100 mg 100 mg PO DAILY Diabetes 08/08/20 09/09/24 History
tablet (Januvia)
vitamins A,C,K-pnnf-dejusn 4,296 1 cap PO BID Supplement 08/08/20 09/09/24 History
mcg-226 mg-90 mg capsule
(PreserVision AREDS)
guaifenesin 600 mg tablet, 600 mg PO Q12H cough 03/03/24 09/09/24 History
extended release 12 hr (Mucinex)
pregabalin 25 mg capsule (Lyrica) 25 mg PO DAILY Pain 04/20/24 09/09/24 History
Lactobac no.2-Bifidobac no.1-S. 1 cap PO DAILY Gastrointestinal 09/09/24 09/09/24 History
thermo 112.5 billion cell capsule Issue
(Visbiome)
acetaminophen 500 mg tablet 1,000 mg PO BID Pain 09/09/24 09/09/24 History
ascorbic acid (vitamin C) 500 mg 500 mg PO BID Supplement 09/09/24 09/09/24 History
chewable tablet
cranberry fruit 450 mg tablet 450 mg PO DAILY Supplement 09/09/24 09/09/24 History
(cranberry)
midodrine 5 mg tablet 5 mg PO DAILY Blood Pressure 09/09/24 09/09/24 History
nitrofurantoin macrocrystal 100 mg 100 mg PO HS Infection 09/09/24 09/09/24 History
capsule
methenamine hippurate 1 gram tablet 1 g PO BID Infection 09/10/24 09/09/24 History
Review of Systems
-
A 10 point review of systems was completed, and was negative except as per HPI.
Physical Exam
Vital Signs
Temp Pulse Resp BP Pulse Ox
98.3 F 72 18 125/70 97
09/11/24 07:30 09/11/24 07:30 09/11/24 07:30 09/11/24 07:30 09/11/24 07:30
09/10/24 09/11/24 09/12/24
06:59 06:59 06:59
Actual Weight 117.48 kg 113.54 kg
Body Mass Index (BMI) 34.0
Lab Results
09/11/24 05:57
09/11/24 05:57
WBC 11.5 10^3/uL (4.8-10.8) H 09/11/24 05:57
Hgb 12.3 g/dL (13.0-18.0) L 09/11/24 05:57
Hct 36.4 % (39.0-52.0) L 09/11/24 05:57
Plt Count 180 10^3/uL (130-400) 09/11/24 05:57
Abs Immat Gran (auto) 0.0 10^3/uL (0-0.05) 09/11/24 05:57
Neutrophils % 81.0 % (42.2-75.2) H 09/11/24 05:57
Physical Exam
General: No Apparent Distress
Respiratory: Non Labored Respirations
Cardiac: Irregular Rhythm
GI: Soft, Tender (Mild, limited by mental status), Distended (Tympany) and Other (No rebound or guarding)
Musculoskeletal: No Edema
Skin: Warm and Dry
Data Reviewed
-
Radiology: Image Personally Visualized and interpreted and Report Reviewed by me
Labs: Labs Reviewed by me
Assessment / Plan
-
Patient is an 88 yo M with an ileus likely secondary to underlying infectious versus neurologic issues
No plans or indication for surgical intervention at this time. Recommend NGT placement for decompression of the stomach with hopeful symptomatic and clinical improvement. If no improvement over the next 24 hours would obtain a repeat CT scan with
oral contrast. Primary team updated.
-- NPO, NGT, IVF
-- CT with PO contrast ordered for tomorrow following period of decompression
-- No plans for surgery
-- Hold Eliquis as able pending need for further procedures
-- Correct lytes, minimize narcotics
--- NOTE | 2024-09-11 11:13 | PTCARENOTE ---
Received patient this am AAOx1. Pt drowsy an confused. Spoke to Dr. Harp/Dr. Foy for clarification on Insulin orders and PO Meds. Pt's BS [phone]. Pt was not covered. BS rechecked at at 10:40 -203. Pt covered with insulin sliding scale and
NPH insulin as ordered. IVF infusing without difficulty. Pt offered no complaints. Made patient comfortable. Cont to assess patient status.
[2024-09-11 12:40] LABS: Glucose - Point of Care 159 mg/dl (70-99)
--- NOTE | 2024-09-11 14:26 | CM ---
Spoke with pt and Cely in room.
Pt to be moved to IMU.
Pt will need PT OT orders when appropriate.
He is on new oxygen . He has CPAP at home.
Pt may need NG tube . Pt is NPO .
CM will continue to assess and assist in dc planning.
PLAN Will need PT OT for dc planning
[2024-09-11 16:46] LABS: Glucose - Point of Care 113 mg/dl (70-99)
--- NOTE | 2024-09-11 17:56 | PTCARENOTE ---
Report called to IMU RN and patient transferred at 1715.
[2024-09-11] MEDS: FLOMAX PO (18:07)
[2024-09-11] MEDS: MUCINEX PO (18:08)
[2024-09-11] MEDS: ROCEPHIN 1000 MG IV (18:08)
[2024-09-11] MEDS: PROSCAR PO (18:08)
[2024-09-11] MEDS: STERILE WATER FOR INJECTION 10 ML IV (18:08)
--- NOTE | 2024-09-11 19:24 | PTCARENOTE ---
Received patient on transfer from the 4th floor via bed at approximately 17:15 with O2 3l n/c in use. Patient's at bedside. Attempts to place NGT prior to transfer were unsuccessful. DAIRY CONSULTANT came and attempted to place x2 tries unsuccessfully.
Dr Foley notified via TT; replied if patient is not vomiting ok to leave tube out. Dr Nelson just on unit to see patient; ok to leave out for tonight and he will reevaluate in the morning. Patient's had left prior to Dr Nelson seeing
patient. Report given to oncoming shift.
Patient still ordered po meds. TT sent to both Dr Harp and DR Lockwood; instructed to hold po meds as patient is strict NPO. Instructed to also hold NPH and Dr Lockwood renewed IVF.
--- NOTE | 2024-09-11 22:34 | PTCARENOTE ---
assumed care of patient. pt is AAOx1-2. at times jokes around with some orientation questions. bed alarm on. on 3L 94%, pt is strict NPO at this time, no complaints of nausea at this time. belly is distended and round, no pain. positive bowel
sounds. pt in inc. of bowel and bladder. cream applied to sacrum. NIH-4, pt does have some aphasia at times, mild slurring, and was unable to tell this RN the month or his age. pt does have a history of macular degeneration. pt has a hoarse voice,
at times hard to hear, pt relates this to the many attempts to put in an NG tube today. pt own CPAP set up for bed. IV fluids infusing. care ongoing.
[2024-09-11 23:26] LABS: Glucose - Point of Care 98 mg/dl (70-99)
[2024-09-12] VITALS (14 sets, daily range): BP systolic 138–157; BP diastolic 62–85; PULSE 70; O2SAT 97; BMI 35.6
[2024-09-12 04:03] LABS: % Basophils 0.1 % (0-2); % Eosinophils 7.3 % (0-6); % Immature Granulocytes 0.2 % (0-0.5); % Lymphocytes 19.4 % (20.5-51.1); % Monocytes 8.2 % (1.7-9.3); % Neutrophils 64.8 % (42.2-75.2); Absolute Eosinophils 0.7 10^3/uL (0-0.7); Absolute Lymphocytes 1.9 10^3/uL (1.2-3.4); Absolute Monocytes 0.8 10^3/uL (0.1-0.6); Absolute Neutrophils 6.4 10^3/uL (1.4-6.5); Hematocrit 37.6 % (39.0-52.0); Hemoglobin 12.7 g/dL (13.0-18.0); Mean Corp Hgb Conc. 33.8 g/dL (33.0-37.0); Mean Corpuscular Volume 97.7 fL (80.0-94.0); Nucleated Red Blood Cells % 0 % (-); Platelet Count 168 10^3/uL (130-400); Red Blood Cell Count 3.85 10^6/uL (4.70-6.10); Red Cell Dist. Width 13.1 % (11.5-14.5); White Blood Cell Count 9.8 10^3/uL (4.8-10.8)
[2024-09-12 04:28] LABS: Blood Urea Nitrogen 19 mg/dl (9-20); Carbon Dioxide 24 mmol/L (22-30); Chloride 111 mmol/L (98-107); Estimated Creatinine Clearance 75 ml/min; Glucose 106 mg/dl (70-99); Magnesium 2.2 mg/dl (1.6-2.3); Potassium 3.9 mmol/L (3.5-5.1); Sodium 140 mmol/L (135-145); eGFR > 60.00
[2024-09-12 04:34] LABS: NT-proBNP 1720 pg/ml
[2024-09-12] MEDS: 0.45%NACL 1000 IV ×3 (05:06→21:23)
[2024-09-12] MEDS: MUCINEX PO (05:08)
[2024-09-12 05:15] LABS: Glucose - Point of Care 102 mg/dl (70-99)
--- NOTE | 2024-09-12 08:03 | PTOTSP ---
POULTRY PINNER Note
New orders required upon transfer to higher level of care (4E to IMU). Patient NPO with NGT for NGT decompression of the stomach. Please place orders if/when medically appropriate for POULTRY PINNER eval.
[2024-09-12] MEDS: ELIQUIS PO (08:13)
[2024-09-12] MEDS: OCUVITE SOFTGEL PO (08:13)
[2024-09-12] MEDS: CARAFATE SUSPENSION PO ×2 (08:13→16:04)
[2024-09-12] MEDS: ProAmatine PO (08:13)
[2024-09-12] MEDS: NSS (PRESERVATIVE FREE) 10 ML IV (08:14)
[2024-09-12] MEDS: PROTONIX IV 40 MG IV (08:14)
[2024-09-12] MEDS: TYLENOL PO (08:14)
[2024-09-12] MEDS: VISBIOME PO (08:14)
[2024-09-12] MEDS: VITAMIN C PO (08:14)
[2024-09-12] MEDS: NOVOLIN N vial SC (09:07)
--- NOTE | 2024-09-12 10:45 | CM ---
Patient from [facility] facility with Dx Adynamic ileus, TME. New stroke ruled out per Neurology. O2 3L. NPO/IVF. Receiving IV Abx. Per nurse; assist of 2, bedrest. ST Eval pending.
Met with patient and Cely;
the patient was A/O and conversant. Patient/ share that NGT was unable to be passed. He states his abdomen is still uncomfortable but he is wishing he could eat. hoping he can get OOB today. They are waiting for MD to provide xray
results.
Patient & are hoping patient can return home with [facility], which they had previously after a SNF stay at [facility].
Message to Resident Romel Lockwood requesting PT/OT Evals.
Plan follow patient's GI/diet status and follow up after seen by PT/OT.
--- NOTE | 2024-09-12 11:01 | W.PN.GS2 ---
Today's Communication / Plan
-
NEWS CAMERAMAN swallow eval, ADAT
Assessment / Plan
-
Patient is an 88 yo M with an ileus likely secondary to underlying infectious versus neurologic issues
Clinically improving with passage of flatus and BM. No plans or indication for surgical intervention at this time.
OK for NEWS CAMERAMAN swallow eval and ADAT based on NEWS CAMERAMAN recs
Pls call with ?s
Subjective Data
-
Date of Service: September 12, 2024
Improving. Passing flaytus and BMs. Reports nausea has resolved
Objective Data
-
Intake and Output
09/11/24 09/12/24 09/13/24
06:59 06:59 06:59
Intake Total 790 / 790 3000 / 3000
Balance 790 / 790 3000 / 3000
Intake:
Oral fluids 240 / 240
IV fluids (Total) 550 / 550 3000 / 3000
Other:
How many times incontinent 1
MODERATE amount urine
How many times incontinent 1 3
SATURATED amount urine
Number of immeasurable emeses? 2
Vital Signs
Temp Pulse Resp BP Pulse Ox
97.4 F 65 18 139/74 98
09/12/24 07:05 09/12/24 06:00 09/12/24 06:00 09/12/24 06:00 09/12/24 04:00
Lab Results
09/12/24 03:48
09/12/24 03:48
Calcium 8.0 mg/dl (8.4-10.2) L 09/12/24 03:48
Magnesium 2.2 mg/dl (1.6-2.3) 09/12/24 03:48
Total Bilirubin 1.2 mg/dl (0.2-1.3) 09/11/24 05:57
AST 15 U/L (17-59) L 09/11/24 05:57
ALT 10 U/L (0-50) 09/11/24 05:57
Alkaline Phosphatase 65 U/L (38-126) 09/11/24 05:57
Total Protein 6.2 g/dl (6.3-8.2) L 09/11/24 05:57
Albumin 3.5 g/dl (3.5-5.0) 09/11/24 05:57
Physical Exam
-
Gen: NAD
Abd: obese, distended, nt
[2024-09-12 11:54] LABS: Glucose - Point of Care 140 mg/dl (70-99)
--- NOTE | 2024-09-12 12:28 | PTCARENOTE ---
Assumed care of patient at beginning of this shift from previous RN. NIHSS done as ordered; patient had difficulty seeing words d/t not having glasses with history of macular degeneration. He was able to follow commands. Patient had abd xray today.
Seen at the bedside by surgery; no need for NGT per Dr Bush and ok to be seen by speech therapist. Report given to Priscila RN at 1100 as assignment changed and she is now caring for patient.
--- NOTE | 2024-09-12 12:58 | PTCARENOTE ---
Assumed care of patient at aprox 1115. Pts in room. Pt oriented to name and place not to time. Pt currently NPO and is asking for food. Awaiting swallow eval. Vitals stable. NSS. Pt incontinent of urine and changed at the time. Plan of care
discussed with and pt.
--- NOTE | 2024-09-12 15:38 | PTOTSP ---
Dysphagia Eval
Patient with hx of mild oral/pharyngeal dysphagia, 2 prior video swallow studies at this hospital, last video swallow study 04/26/2024 (silent aspiration of thin liquids; recommendation for IDDSI 6 soft/bite sized, IDDSI 2 mildly thick). Patient
advanced to regular, thin at home and family reported no known pulmonary complications.
Today patient presents with signs concerning for possible esophageal dysphagia. Cannot r/o silent aspiration bedside.
Recommend:
1. Regular (if/when medically cleared), Thin Liquids
2. Medications - in puree (baseline)
3. Strategies: upright to 90 degrees, full supervision, assist as needed, small single sips/bites, slow rate, reflux precautions
4. Video swallow study pending patient/family goals (undecided at present)
5. Dysphagia f/u at the acute care level for reassessment and instruction in compensations
--- NOTE | 2024-09-12 16:16 | W.PN.HOSP.TC ---
Addendum entered and electronically signed by Daryn Harp MD 09/13/24 13:34:
88 male history of type II, hypertension, obesity, pulmonary nodules, TIA/CVA, HLD, who presented with chief concern of weakness and sluggishness. Has a known history of recurrent UTIs and has been receiving different courses of antibiotics since
April last prescribed by his urologist.
Toxic metabolic encephalopathy unclear if this is acute stroke or infectious related. Urine analysis not consistent with UTI however on antibiotics. Urine culture pending what would be surprised if it grows anything out. Will obtain MRI brain
neurology to evaluate.
Adynamic ileus, surger yfollowing, no ngt needed, passing flatus, started on diet
Delirium unclear as to etiology could be hospital-acquired or infectious related. Continue Rocephin for now offered Zyprexa however declined. Hold Lyrica
Atrial fibrillation paroxysmal
And currently in sinus rhythm, continue Eliquis
Diabetes insulin-dependent continue NPH Accu-Chek sliding scale goal blood glucose 140-180 carb controlled diet
Orthostatic hypotension continue midodrine
Pulmonary nodules follow-up with PCP
BPH continue finasteride and Flomax
Original Note:
Today's Communication/Plan
-
Bladder scan and straight cath protocol
Consult ID regarding recurrent UTIs and multiple antibiotics, necessity of suppressive therapy?
Advance diet as tolerated
Assessment / Plan
Assessment / Plan
IMPRESSION:
Patient is a 88-year-old male, past medical history significant for recurrent UTIs, has been on multiple antibiotics including Bactrim, nitrofurantoin, fosfomycin and as per his he is very confused and disoriented when he has a UTI. He is
diabetic and has history of BPH. Not on any SGLT2 inhibitors. Had been on antibiotics prior to coming to the hospital, hence urine analysis questionable. Urine culture is pending. 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
left carotid stenosis and A-fib. He was evaluated with head CT scan/CTA head neck images and reported to have left carotid stenosis 60% and right carotid stenosis 45%. Brain MRI 04/2019 images reviewed several small infarcts in left MCA territory.
As per neuro, this does not seem to be a new stroke but the risk of stroke from left carotid stenosis remains high with overall poor health and dementia. Patient would not want to have surgery to lower the stroke risk.
Assessment/PLAN:
# Abdominal distention secondary to adynamic ileus
Unclear etiology-infectious versus neurological
Surgery consult appreciated----Abdominal x-ray repeated this morning, suggested slight improvement in adynamic ileus as compared to yesterday
Left basilar opacification was seen secondary to atelectasis
Speech therapy evaluation done -plan to start clear liquid diet-hold IV fluids
Continue to monitor and advance diet as tolerated
# Acute metabolic encephalopathy likely secondary to UTI vs less likely recrudescence of prior TIA
History of recurrent UTIs, ER urine analysis not consistent, but he was on antibiotics
Currently on ceftriaxone 1 g every 24 hours, continue
No growth on blood culture or urine culture in the last 48 hours hours
Brain MRI 09/10/2024- no new stroke
Continue Eliquis, start high-dose statin as per neuro
Prior stroke in 2019 and increasing confusion on this admission, neurology consult appreciated, overall general deconditioning, agreed that the patient would not want any surgery
# Delirium/confusion
Possibly exacerbated by hospitalization and history of stroke
Discontinued Lyrica
Suggested Zyprexa which the patient's refused
# History of recurrent UTIs and multiple antibiotic use
Bladder scan and straight cath protocol
Consult ID regarding necessity of suppressive therapy
Other stable medical condition
Type 2 diabetes----HbA1c 7.6, glucose levels fairly controlled, can resume home medications including Januvia on discharge
Acute heart failure less likely based on clinical evaluation. proBNP levels normal
Paroxysmal atrial fibrillation-Continue Eliquis, currently rate controlled
Essential hypertension-continue medications as able
Orthostatic hypotension- Continue midodrine
Obesity
Pulmonary nodules
History of TIA/CVA
Hypercholesterolemia
Obstructive sleep apnea- Continue CPAP
History of lumbar laminectomy- Continue pregabalin
BPH-Continue tamsulosin, finasteride
Macular degeneration
GERD
-continue Protonix
DNR/DNI
DVT prophylaxis�Eliquis
QTc interval 438
Clear liquid diet, advance diet as tolerated
Anticipated Discharge: 24 - 48 hours
Subjective/Interval History
-
Date of Service: September 12, 2024
Patient's conscious level improved, oriented to name and place, communicates that his nausea has improved and he has been passing flatus and had a bowel movement
Objective Data
-
Labs:
Laboratory Results
09/12/24
03:48
Sodium 140
Potassium 3.9
Chloride 111 H
Carbon Dioxide 24
BUN 19
Creatinine 0.9
Glucose 106 H
Calcium 8.0 L
Vital Signs:
Vital Signs
Temp Pulse Resp BP Pulse Ox
97.5 F 69 21 157/82 98
09/12/24 15:05 09/12/24 14:51 09/12/24 14:51 09/12/24 14:51 09/12/24 14:36
I&O
09/11/24 09/12/24 09/13/24
06:59 06:59 06:59
Intake Total 790 / 790 3000 / 3000
Balance 790 / 790 3000 / 3000
Review of Systems
-
All other systems: Reviewed and negative
Physical Exam
-
General: No Apparent Distress, Comfortable, Morbidly Obese and Other (Breathing on 2 L of oxygen)
HEENT: Moist Mucous Membranes and Anicteric
Respiratory: Clear to Auscultation; Negative Wheezes, Rales or Rhonchi
Cardiac: Regular Rhythm and S1/S2; Negative Murmur, Rub or Gallop
GI: Soft, Nontender and Normal Bowel Sounds
Musculoskeletal: No Clubbing, No Cyanosis and No Edema
Skin: Warm and Dry
Neuro: Awake and Oriented (To name and place)
Psych: Confused
[2024-09-12 16:36] LABS: Glucose - Point of Care 168 mg/dl (70-99)
[2024-09-12] MEDS: PROSCAR 5 MG PO (17:18)
[2024-09-12] MEDS: FLOMAX 0.4 MG PO (17:18)
[2024-09-12] MEDS: NOVOLOG FLEXPEN-LOW RESISTANCE 1 UNITS SC (17:27)
[2024-09-12] MEDS: HUMULIN N KWIKPEN 50 UNITS SC (17:28)
[2024-09-12] MEDS: TYLENOL 1000 MG PO (19:30)
[2024-09-12] MEDS: MUCINEX 600 MG PO (19:30)
[2024-09-12] MEDS: STERILE WATER FOR INJECTION 10 ML IV (19:31)
[2024-09-12] MEDS: OCUVITE SOFTGEL 1 CAP PO (19:31)
[2024-09-12] MEDS: VITAMIN C 500 MG PO (19:31)
[2024-09-12] MEDS: ROCEPHIN 1000 MG IV (19:31)
[2024-09-12] MEDS: ELIQUIS 5 MG PO (19:31)
--- NOTE | 2024-09-12 21:09 | PTCARENOTE ---
assumed care of patient. pt is AAOx1-2, confused and forgetful at times. bed alarm on. 3LNC, 95%. inc. of bowel and bladder. cream applied to sacrum. pt denies pain or nausea, tolerating a clear liquid diet at this time. pt does admit to have slight
pain earlier after dinner, but went away. IV fluids infusing. care ongoing.
[2024-09-12 21:53] LABS: Glucose - Point of Care 194 mg/dl (70-99)
[2024-09-13] VITALS (17 sets, daily range): BP systolic 121–159; BP diastolic 51–80; PULSE 70; O2SAT 96; BMI 34.6
--- NOTE | 2024-09-13 00:02 | PTCARENOTE ---
pt has been very confused/forgetful all night. trying to get OOB, pulling off pulse ox. thinks he is in [place]. frequent reorientation, with little success. bed alarm remains on.
--- NOTE | 2024-09-13 01:25 | PTCARENOTE ---
pt tolerating clears. on 3L 95%, some slight crackles heard at bilateral bases. per MD noted, hold IV fluids. notified covering PET SITTER- IV fluids discontinued.
[2024-09-13 04:23] LABS: % Basophils 0.3 % (0-2); % Eosinophils 8.5 % (0-6); % Immature Granulocytes 0.4 % (0-0.5); % Lymphocytes 19.4 % (20.5-51.1); % Monocytes 8.5 % (1.7-9.3); % Neutrophils 62.9 % (42.2-75.2); Absolute Eosinophils 0.7 10^3/uL (0-0.7); Absolute Lymphocytes 1.5 10^3/uL (1.2-3.4); Absolute Monocytes 0.7 10^3/uL (0.1-0.6); Absolute Neutrophils 4.8 10^3/uL (1.4-6.5); Hematocrit 36.4 % (39.0-52.0); Hemoglobin 12.2 g/dL (13.0-18.0); Mean Corp Hgb Conc. 33.5 g/dL (33.0-37.0); Mean Corpuscular Hgb 32.4 pg (27.0-31.0); Mean Corpuscular Volume 96.8 fL (80.0-94.0); Mean Platelet Volume 9.6 fL (7.4-10.4); Nucleated Red Blood Cells % 0 % (-); Platelet Count 170 10^3/uL (130-400); Red Blood Cell Count 3.76 10^6/uL (4.70-6.10); Red Cell Dist. Width 12.5 % (11.5-14.5); White Blood Cell Count 7.6 10^3/uL (4.8-10.8)
[2024-09-13 04:34] LABS: Blood Urea Nitrogen 16 mg/dl (9-20); Carbon Dioxide 25 mmol/L (22-30); Chloride 111 mmol/L (98-107); Estimated Creatinine Clearance 85 ml/min; Glucose 150 mg/dl (70-99); Magnesium 2.2 mg/dl (1.6-2.3); Potassium 3.9 mmol/L (3.5-5.1); Sodium 139 mmol/L (135-145); eGFR > 60.00
--- NOTE | 2024-09-13 07:09 | W.PN.HOSP.TC ---
Addendum entered and electronically signed by Daryn Harp MD 09/13/24 13:37:
88 male history of type II, hypertension, obesity, pulmonary nodules, TIA/CVA, HLD, who presented with chief concern of weakness and sluggishness. Has a known history of recurrent UTIs and has been receiving different courses of antibiotics since
April last prescribed by his urologist.
Toxic metabolic encephalopathy unclear if this is acute stroke or infectious related. Urine analysis not consistent with UTI however on antibiotics. Urine culture pending what would be surprised if it grows anything out. Will obtain MRI brain
neurology to evaluate.
Adynamic ileus, distention worsening this AM, repeat abd xray, hold advancing diet, may need ngt
Delirium unclear as to etiology could be hospital-acquired or infectious related. Continue Rocephin for now offered Zyprexa however declined. Hold Lyrica
Atrial fibrillation paroxysmal
And currently in sinus rhythm, continue Eliquis
Diabetes insulin-dependent continue NPH Accu-Chek sliding scale goal blood glucose 140-180 carb controlled diet
Orthostatic hypotension continue midodrine
Pulmonary nodules follow-up with PCP
BPH continue finasteride and Flomax
Original Note:
Today's Communication/Plan
-
Infectious disease consult
PT/OT
Full liquid diet
Assessment / Plan
Assessment / Plan
IMPRESSION:
Patient is a 88-year-old male, past medical history significant for recurrent UTIs, has been on multiple antibiotics including Bactrim, nitrofurantoin, fosfomycin and as per his he is very confused and disoriented when he has a UTI. He is
diabetic and has history of BPH. Not on any SGLT2 inhibitors. Had been on antibiotics prior to coming to the hospital, hence urine analysis questionable. Urine culture is pending. 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
left carotid stenosis and A-fib. He was evaluated with head CT scan/CTA head neck images and reported to have left carotid stenosis 60% and right carotid stenosis 45%. Brain MRI 04/2019 images reviewed several small infarcts in left MCA territory.
As per neuro, this does not seem to be a new stroke but the risk of stroke from left carotid stenosis remains high with overall poor health and dementia. Patient would not want to have surgery to lower the stroke risk.
Assessment/PLAN:
# Abdominal distention secondary to adynamic ileus
Unclear etiology-infectious versus neurological
Surgery consult appreciated----adynamic ileus improving
Speech therapy evaluation done -plan to start clear liquid diet-hold IV fluids
Continue to monitor and advance diet as tolerated
# Acute metabolic encephalopathy likely secondary to UTI vs less likely recrudescence of prior TIA
History of recurrent UTIs, ER urine analysis not consistent, but he was on antibiotics
Currently on ceftriaxone 1 g every 24 hours, continue
No growth on blood culture or urine culture in the last 48 hours hours
Brain MRI 09/10/2024- no new stroke
Continue Eliquis, start high-dose statin as per neuro
Prior stroke in 2019 and increasing confusion on this admission, neurology consult appreciated, overall general deconditioning, agreed that the patient would not want any surgery
# Delirium/confusion
Possibly exacerbated by hospitalization and history of stroke
Discontinued Lyrica
Improving
# History of recurrent UTIs and multiple antibiotic use
Bladder scan and straight cath protocol
Consult ID regarding necessity of suppressive therapy
Other stable medical condition
Type 2 diabetes----HbA1c 7.6, glucose levels fairly controlled, can resume home medications including Januvia on discharge
Acute heart failure less likely based on clinical evaluation. proBNP levels normal
Paroxysmal atrial fibrillation-Continue Eliquis, currently rate controlled
Essential hypertension-continue medications as able
Orthostatic hypotension- Continue midodrine
Obesity
Pulmonary nodules
History of TIA/CVA
Hypercholesterolemia
Obstructive sleep apnea- Continue CPAP
History of lumbar laminectomy- Continue pregabalin
BPH-Continue tamsulosin, finasteride
Macular degeneration
GERD
-continue Protonix
DNR/DNI
DVT prophylaxis�Eliquis
QTc 458
Speech therapy okay to advance to regular diet, tolerated clear liquid diet, advance to full liquid diet
PT OT recommended skilled rehab
Anticipated Discharge: 24 - 48 hours
Subjective/Interval History
-
Date of Service: September 13, 2024
Patient appears more oriented today, oriented to name, place, and time
Objective Data
-
Labs:
Laboratory Results
09/13/24
04:09
WBC 7.6
Hgb 12.2 L
Hct 36.4 L
Plt Count 170
Sodium 139
Potassium 3.9
Chloride 111 H
Carbon Dioxide 25
BUN 16
Creatinine 0.8
Glucose 150 H
Calcium 8.0 L
Vital Signs:
Vital Signs
Temp Pulse Resp BP Pulse Ox
98.2 F 65 19 139/68 99
09/13/24 03:19 09/13/24 06:00 09/13/24 06:00 09/13/24 06:00 09/13/24 06:00
I&O
09/12/24 09/13/24 09/14/24
06:59 06:59 06:59
Intake Total 3000 / 3000 2099
Balance 3000 / 3000 2099
Review of Systems
-
All other systems: Reviewed and negative
Physical Exam
-
General: No Apparent Distress, Comfortable and Conversant
HEENT: Moist Mucous Membranes and Anicteric
Respiratory: Clear to Auscultation; Negative Wheezes, Rales or Rhonchi
Cardiac: Regular Rhythm and S1/S2; Negative Murmur, Rub or Gallop
GI: Soft, Nontender and Normal Bowel Sounds
Musculoskeletal: No Clubbing, No Cyanosis and No Edema
Skin: Warm and Dry
Neuro: Awake, AO x 3 and Nonfocal/Grossly Intact
Psych: Calm
[2024-09-13] MEDS: NOVOLOG FLEXPEN-LOW RESISTANCE SC (07:46)
[2024-09-13 07:55] LABS: Glucose - Point of Care 136 mg/dl (70-99)
[2024-09-13] MEDS: ELIQUIS 5 MG PO ×2 (07:58→19:51)
[2024-09-13] MEDS: VISBIOME 1 CAP PO (07:58)
[2024-09-13] MEDS: TYLENOL 1000 MG PO ×2 (07:58→19:50)
[2024-09-13] MEDS: MUCINEX 600 MG PO ×2 (07:58→17:37)
[2024-09-13] MEDS: OCUVITE SOFTGEL 1 CAP PO ×2 (07:58→19:51)
[2024-09-13] MEDS: VITAMIN C 500 MG PO ×2 (07:58→19:50)
[2024-09-13] MEDS: PROTONIX IV 40 MG IV (07:59)
[2024-09-13] MEDS: NSS (PRESERVATIVE FREE) 10 ML IV (07:59)
[2024-09-13] MEDS: HUMULIN N KWIKPEN 60 UNITS SC (08:00)
[2024-09-13 08:06] LABS: Glucose - Point of Care 148 mg/dl (70-99)
--- NOTE | 2024-09-13 08:13 | PTCARENOTE ---
Pt AOx2, drowsy but pleasant and cooperative. Took pills whole in applesauce. Advanced to Full Liquid diet as per order to advance as tolerated. Pt passing gas, + BS, non-tender. VSS.
--- NOTE | 2024-09-13 08:32 | CM ---
Patient chart reviewed
PT rec SNF
Spoke with Cely & options reviewed - prefers [facility]
Referral for [facility] entered in [facility]
Spoke with Columba at [facility]
PLAN: [facility] when medically stable
--- NOTE | 2024-09-13 09:51 | W.PN.GS2 ---
Today's Communication / Plan
-
-- PROPERTY MAN swallow eval
-- Recommend holding at fulls for now given distension
-- X-ray abdomen for objective evidence of improvement prior to further dietary advancement
-- Miralax pending X-ray findings
Assessment / Plan
-
Patient is an 88 yo M with an ileus likely secondary to underlying infectious versus neurologic issues
Clinically improving with passage of flatus and BM. Exam remains distended and tympanitic. Difficult to assess clinically given mental status issues and obesity.
-- PROPERTY MAN swallow eval
-- Recommend holding at fulls for now given distension
-- X-ray abdomen for objective evidence of improvement prior to further dietary advancement
-- Miralax pending X-ray findings
Subjective Data
-
Date of Service: September 13, 2024
No complaints. Denies worsening abdominal pain or nausea. Nursing reports passage of stools and tolerance of fulls. Afebrile.
Objective Data
-
Intake and Output
09/12/24 09/13/24 09/14/24
06:59 06:59 06:59
Intake Total 3000 / 3000 2100 / 2100
Balance 3000 / 3000 2100 / 2100
Intake:
Oral fluids 600 / 600
IV fluids (Total) 3000 / 3000 1500 / 1500
Other:
Number of approximated MODERATE 1
amounts of urine
How many times incontinent 3 1
SATURATED amount urine
Vital Signs
Temp Pulse Resp BP Pulse Ox
97.6 F 65 22 132/59 95
09/13/24 07:21 09/13/24 08:00 09/13/24 08:00 09/13/24 08:00 09/13/24 08:49
Lab Results
09/13/24 04:09
09/13/24 04:09
Calcium 8.0 mg/dl (8.4-10.2) L 09/13/24 04:09
Magnesium 2.2 mg/dl (1.6-2.3) 09/13/24 04:09
Total Bilirubin 1.2 mg/dl (0.2-1.3) 09/11/24 05:57
AST 15 U/L (17-59) L 09/11/24 05:57
ALT 10 U/L (0-50) 09/11/24 05:57
Alkaline Phosphatase 65 U/L (38-126) 09/11/24 05:57
Total Protein 6.2 g/dl (6.3-8.2) L 09/11/24 05:57
Albumin 3.5 g/dl (3.5-5.0) 09/11/24 05:57
Physical Exam
-
Gen: NAD
Abd: soft, NT, distended, tympanitic, non-peritoneal
Patient has a arechiga catheter: No
Patient has a central line: No
[2024-09-13 12:16] LABS: Glucose - Point of Care 194 mg/dl (70-99)
[2024-09-13] MEDS: NOVOLOG FLEXPEN-LOW RESISTANCE 1 UNITS SC ×2 (12:33→17:35)
--- NOTE | 2024-09-13 13:37 | CON.ID ---
Consultation
-
Date/Time Consultation Requested: 09/12/2024 1700
Date/Time Consultation Performed: 09/13/2024 1120
Requesting Provider: Dr. Foy
Performing Provider: Dr. Christy
Reason for Consultation: UTI
Chief Complaint / Past History
History of Present Illness
Ash Pedraza is being seen in infectious disease consultation at the request of Dr. Foy regarding recurrent urinary tract infection. History is obtained from chart review, along with patient interview. Additional history was obtained from the
patient's who is present at the bedside.
The patient reports a history of multiple recent UTIs since the beginning of the year. The patient resides at a local assisted living, and notes that they were admitted to [facility] in April. A review of records from that time reveal
that he was admitted for respiratory failure secondary to influenza A and suspected aspiration pneumonia. The patient was again seen here at the ER on 08/06/2024 for evaluation of dark stool, but was found to be Hemoccult negative.
He was sent back in to the emergency room on 09/09 following a fall at home. The patient evidently had been in rehab for a period of time but finally came back home and on the day of admission was helped to the bathroom because of the need to
urinate and while standing from the toilet his legs gave out and EMS was called. ER notes indicate that there was concern for weakness and sluggishness, and with a reported history of recurrent urinary tract infections there was concern for
recurrence of infection this time. The patient was placed on empiric antibiotics, and Infectious Diseases is asked to comment upon suppressive antibiotics.
The patient denies any recent fevers. He denies significant dysuria. He is not sure of his prior antibiotic therapy.
Past History
Additional Past Medical History:
HTN
HLD
A-fib (on Eliquis)
IDDM
CVA
GUILLERMO (on CPAP)
Gait dysfunction
BPH left carotid stenosis
Allergy History:
adhesive tape Allergy (Verified 08/06/24 17:39)
Rash
amoxicillin [From Augmentin] Allergy (Verified 08/06/24 17:39)
Nausea/DIARRHEA
metoprolol [From Toprol XL] Allergy (Verified 08/06/24 17:39)
Rash
mushroom Allergy (Verified 08/06/24 17:39)
Shortness of Breath
pollen extracts Allergy (Verified 08/06/24 17:39)
Itching, sneezing - seasonal
tramadol Allergy (Verified 08/06/24 17:39)
Unknown
Medications Reviewed: Yes
Current Antibiotics:
Ceftriaxone
Social History
Tobacco: Non-Smoker
Alcohol: None
Drug: None
Personal:
Employment: Retired
Family History
Family History: Not Pertinent
Review of Systems
Vital Signs
Temp Pulse Resp BP Pulse Ox
97.7 F 65 22 132/59 95
09/13/24 11:05 09/13/24 08:00 09/13/24 08:00 09/13/24 08:00 09/13/24 08:49
Physical Exam
Physical Exam
Constitutional: No Acute Distress, Comfortable, Chronically Ill, Non-toxic and Obese
Eyes: Pupils Equal, Pupils Round, No Conjunctival Hemorrhage and Sclera Anicteric
Oral: No Thrush and No Ulcers
Cardiovascular: Regular Rate and S1/S2; Negative S3/S4
Pulmonary: Clear; Negative Wheezes, Rales or Rhonchi
Gastrointestinal: Soft, Non Tender, Non Distended, Normal Bowel Sounds, No Rebound and No Guarding
Genito-Urinary: Negative Mackay
Extremities: Edema; Negative Cyanosis or Erythema
Neurological: Awake and Alert
Psychological: Calm
Lab / Diagnostic Study Results
09/13/24 04:09
09/13/24 04:09
Abs Immat Gran (auto) 0.0 10^3/uL (0-0.05) 09/13/24 04:09
Absolute Neuts (auto) 4.8 10^3/uL (1.4-6.5) 09/13/24 04:09
Absolute Lymphs (auto) 1.5 10^3/uL (1.2-3.4) 09/13/24 04:09
Absolute Monos (auto) 0.7 10^3/uL (0.1-0.6) H 09/13/24 04:09
Absolute Basos (auto) 0.0 10^3/uL (0-0.2) 09/13/24 04:09
Immature Gran % 0.4 % (0-0.5) 09/13/24 04:09
Neutrophils % 62.9 % (42.2-75.2) 09/13/24 04:09
Lymphocytes % 19.4 % (20.5-51.1) L 09/13/24 04:09
Monocytes % 8.5 % (1.7-9.3) 09/13/24 04:09
Eosinophils % 8.5 % (0-6) H 09/13/24 04:09
Basophils % 0.3 % (0-2) 09/13/24 04:09
PT 15.5 Sec (11.4-14.6) H 09/09/24 13:31
INR 1.20 09/09/24 13:31
Ur Squamous Epith Cells 0-2 /LPF (Few) 09/09/24 15:21
Microbiology Results
Micro:
09/09/24 17:04 Blood Culture - Preliminary
Blood/Venous No Growth in 72 hours- Final report to follow
09/09/24 17:04 Blood Culture - Preliminary
Blood/Venous No Growth in 72 hours- Final report to follow
09/09/24 15:21 Urine Culture - Final
Urine NO GROWTH
Imaging:
09/10/2024 MRI brain without contrast: No MRI evidence for acute infarct. 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 Tiny chronic ischemic infarct in the superior left cerebellar hemisphere. Minimal
periventricular white matter leukoaraiosis. Moderate diffuse cerebral and cerebellar volume loss. 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
Assessment / Plan
Weakness
- etiology unclear
Reported history of recurrent urinary tract infection
- Admission urinalysis not consistent with UTI
- Pt essentially without urinary symptomatology
Leukocytosis; resolved
HTN
HLD
A-fib (on Eliquis)
IDDM
CVA
GUILLERMO (on CPAP)
Gait dysfunction
BPH left carotid stenosis
Recommendations:
Discontinue further antibiotics.
Will attempt to review outpatient lab records to assess prior UA's and culture results.
Would attempt to avoid 'suppressive' antibiotic therapy as this will likely only lead to increasing bacterial resistance.
Monitor white count & temperature curve.
[2024-09-13] MEDS: MIRALAX 17 GRAMS PO (13:50)
[2024-09-13 17:26] LABS: Glucose - Point of Care 176 mg/dl (70-99)
[2024-09-13] MEDS: FLOMAX 0.4 MG PO (17:35)
[2024-09-13] MEDS: HUMULIN N KWIKPEN 50 UNITS SC (17:35)
[2024-09-13] MEDS: PROSCAR 5 MG PO (17:36)
[2024-09-13 21:31] LABS: Glucose - Point of Care 164 mg/dl (70-99)
[2024-09-14] VITALS (16 sets, daily range): BP systolic 136–182; BP diastolic 56–87; PULSE 64; O2SAT 92; BMI 34.5
[2024-09-14] MEDS: MUCINEX 600 MG PO ×2 (05:39→19:28)
--- NOTE | 2024-09-14 05:52 | PTCARENOTE ---
Pt AAOxself, very forgetful. Grossly incontinent of urine, hygiene care performed. Able to take pills whole with applesauce without complication. Bed alarm in place for pt safety. Q2T schedule in place to prevent further skin breakdown.
[2024-09-14] MEDS: ELIQUIS 5 MG PO ×2 (08:31→19:29)
[2024-09-14] MEDS: TYLENOL 1000 MG PO ×2 (08:31→19:29)
[2024-09-14] MEDS: VITAMIN C 500 MG PO ×2 (08:31→19:28)
[2024-09-14] MEDS: MIRALAX PO (08:31)
[2024-09-14] MEDS: OCUVITE SOFTGEL 1 CAP PO ×2 (08:31→19:29)
[2024-09-14] MEDS: VISBIOME 1 CAP PO (08:31)
[2024-09-14] MEDS: NSS (PRESERVATIVE FREE) 10 ML IV (08:31)
[2024-09-14] MEDS: PROTONIX IV 40 MG IV (08:32)
[2024-09-14] MEDS: MIRALAX 17 GRAMS PO (08:49)
[2024-09-14] MEDS: NOVOLOG FLEXPEN-LOW RESISTANCE SC (08:49)
[2024-09-14] MEDS: HUMULIN N KWIKPEN SC (08:49)
--- NOTE | 2024-09-14 08:52 | W.PN.HOSP.TC ---
Addendum entered and electronically signed by Daryn Harp MD 09/14/24 15:46:
88 male history of type II, hypertension, obesity, pulmonary nodules, TIA/CVA, HLD, who presented with chief concern of weakness and sluggishness. Has a known history of recurrent UTIs and has been receiving different courses of antibiotics since
April last prescribed by his urologist.
NAD
Scleral Anicteric
MMM
No JVD
CTABL
RRR, S1/S2
On the harder side however not peritonitic, NT, distended, hypoactive
Warm, Dry
AAOx3
Calm
Toxic metabolic encephalopathy, unclear as to etiology of waxes/wanes
Urine analysis not consistent with UTI however on antibiotics. Urine culture without growth. ID discontinued antibiotics and recommended against suppressive therapy as this would increase resistance
Adynamic ileus, distention worsening this AM, repeat abd xray, hold advancing diet, may need ngt
Delirium unclear as to etiology could be hospital-acquired or infectious related. Continue Rocephin for now offered Zyprexa however declined. Hold Lyrica
Atrial fibrillation paroxysmal
And currently in sinus rhythm, continue Eliquis
Diabetes insulin-dependent continue NPH Accu-Chek sliding scale goal blood glucose 140-180 carb controlled diet
Orthostatic hypotension continue midodrine
Pulmonary nodules follow-up with PCP
BPH continue finasteride and Flomax
Original Note:
Today's Communication/Plan
-
PT/OT
keep on clear liquids
monitor glucose levels
Abdominal x-ray tomorrow
Add Advil for throat pain
Assessment / Plan
Assessment / Plan
IMPRESSION:
Patient is a 88-year-old male, past medical history significant for recurrent UTIs, has been on multiple antibiotics including Bactrim, nitrofurantoin, fosfomycin and as per his he is very confused and disoriented when he has a UTI. He is
diabetic and has history of BPH. Not on any SGLT2 inhibitors. Had been on antibiotics prior to coming to the hospital, hence urine analysis questionable. Urine culture is pending. 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
left carotid stenosis and A-fib. He was evaluated with head CT scan/CTA head neck images and reported to have left carotid stenosis 60% and right carotid stenosis 45%. Brain MRI 04/2019 images reviewed several small infarcts in left MCA territory.
As per neuro, this does not seem to be a new stroke but the risk of stroke from left carotid stenosis remains high with overall poor health and dementia. Patient would not want to have surgery to lower the stroke risk.
Assessment/PLAN:
# Abdominal distention secondary to adynamic ileus
Unclear etiology-infectious versus neurological
Surgery consult appreciated----adynamic ileus-worsening abdominal distension since yesterday
Abd xray 09/13-no changes in adynamic ileus from last xray
Speech therapy evaluation done - denied VSE-defered decision to surgery
Continue to monitor
keep on clears for now,await surgery recommendations
# Acute metabolic encephalopathy likely secondary to UTI vs less likely recrudescence of prior TIA
History of recurrent UTIs, ER urine analysis not consistent, but he was on antibiotics
Currently on ceftriaxone 1 g every 24 hours, continue
No growth on blood culture or urine culture in the last 48 hours hours
Brain MRI 09/10/2024- no new stroke
Continue Eliquis, start high-dose statin as per neuro
Prior stroke in 2019 and increasing confusion on this admission, neurology consult appreciated, overall general deconditioning, agreed that the patient would not want any surgery
# Delirium/confusion
Possibly exacerbated by hospitalization and history of stroke
Discontinued Lyrica
declined Zyprexa
Improving
# History of recurrent UTIs and multiple antibiotic use
Bladder scan and straight cath protocol
ID consult appreciated-Hold antibiotics,observe off antibiotics,advice against suppressive antibiotic therapy
Other stable medical condition
Type 2 diabetes----HbA1c 7.6, glucose levels fairly controlled, can resume home medications including Januvia on discharge
Acute heart failure less likely based on clinical evaluation. proBNP levels normal
Paroxysmal atrial fibrillation-Continue Eliquis, currently rate controlled
Essential hypertension-continue medications as able
Orthostatic hypotension- Continue midodrine
Obesity
Pulmonary nodules
History of TIA/CVA
Hypercholesterolemia
Obstructive sleep apnea- Continue CPAP
History of lumbar laminectomy- Continue pregabalin
BPH-Continue tamsulosin, finasteride
Macular degeneration
GERD
-continue Protonix
DNR/DNI
DVT prophylaxis�Eliquis
PT OT recommended skilled rehab-[facility]
[id number]-hold morning insulin dose
Anticipated Discharge: 24 - 48 hours
Subjective/Interval History
-
Date of Service: September 14, 2024
Patient had last bowel movement yesterday.Feels discomfort in his neck.Abdominal distension.
Objective Data
-
Labs:
Laboratory Results
09/14/24
07:23
WBC Pending
Hgb Pending
Hct Pending
Plt Count Pending
Sodium Pending
Potassium Pending
Chloride Pending
Carbon Dioxide Pending
BUN Pending
Creatinine Pending
Glucose Pending
Calcium Pending
Vital Signs:
Vital Signs
Temp Pulse Resp BP Pulse Ox
98.0 F 59 21 154/73 95
09/14/24 03:01 09/14/24 06:02 09/14/24 06:02 09/14/24 06:02 09/14/24 06:02
I&O
09/13/24 09/14/24 09/15/24
06:59 06:59 06:59
Intake Total 2099
Balance 2099
Review of Systems
-
All other systems: Reviewed and negative
Physical Exam
-
General: Appears Chronically Ill, Morbidly Obese and Other (appears dehydrated)
Respiratory: Decreased Breath Sounds
Cardiac: Regular Rhythm, S1/S2 and Bradycardic
GI: Soft, Nontender, Distended and Other (Tinkling bowel sounds)
Musculoskeletal: No Clubbing, No Cyanosis and Other (Bilateral mild pitting edema)
Skin: Warm and Dry
Neuro: Other (Stage 1 MASD on sacrum)
Psych: Calm
[2024-09-14 08:56] LABS: Glucose - Point of Care 67 mg/dl (70-99)
[2024-09-14 09:19] LABS: Glucose - Point of Care 72 mg/dl (70-99)
[2024-09-14 09:28] LABS: % Basophils 0.3 % (0-2); % Eosinophils 2.4 % (0-6); % Immature Granulocytes 0.7 % (0-0.5); % Lymphocytes 16.5 % (20.5-51.1); % Monocytes 7.8 % (1.7-9.3); % Neutrophils 72.3 % (42.2-75.2); Absolute Eosinophils 0.2 10^3/uL (0-0.7); Absolute Immature Granulocytes 0.1 10^3/uL (0-0.05); Absolute Lymphocytes 1.5 10^3/uL (1.2-3.4); Absolute Monocytes 0.7 10^3/uL (0.1-0.6); Absolute Neutrophils 6.6 10^3/uL (1.4-6.5); Hematocrit 40.8 % (39.0-52.0); Mean Corp Hgb Conc. 34.3 g/dL (33.0-37.0); Mean Corpuscular Hgb 32.9 pg (27.0-31.0); Mean Platelet Volume 9.8 fL (7.4-10.4); Nucleated Red Blood Cells % 0 % (-); Platelet Count 209 10^3/uL (130-400); Red Blood Cell Count 4.25 10^6/uL (4.70-6.10); Red Cell Dist. Width 12.6 % (11.5-14.5); White Blood Cell Count 9.2 10^3/uL (4.8-10.8)
[2024-09-14 09:42] LABS: Blood Urea Nitrogen 10 mg/dl (9-20); Calcium 8.8 mg/dl (8.4-10.2); Carbon Dioxide 27 mmol/L (22-30); Chloride 111 mmol/L (98-107); Estimated Creatinine Clearance 85 ml/min; Glucose 69 mg/dl (70-99); Magnesium 2.3 mg/dl (1.6-2.3); Potassium 4.1 mmol/L (3.5-5.1); Sodium 145 mmol/L (135-145); eGFR > 60.00
--- NOTE | 2024-09-14 09:55 | W.PN.GS2 ---
Addendum entered and electronically signed by Davy Herrera MD 09/14/24 12:35:
I saw and examined the patient independently.
The Platform Material Handling Supervisor's note was reviewed and I agree with the note, assessment and plan except where noted below.
Comment: This is a an 88-year-old male who presents with an ileus likely secondary to underlying infectious etiology versus neurologic. He states that he was passing flatus yesterday but not so much today. Still markedly distended on exam.
LIFESTYLE DIRECTOR eval appreciated.
Clears for now given his distention.
Up and out of bed, ambulate as able
Can get a repeat x-ray tomorrow.
We will continue to follow
Original Note:
Today's Communication / Plan
-
liquid diet
Assessment / Plan
-
Patient is an 88 yo M with an ileus likely secondary to underlying infectious versus neurologic issues
Still passing flatus without complaints of n/v. Exam remains distended and tympanitic
09/13 XR abd c/w ileus
-- LIFESTYLE DIRECTOR eval appreciated
-- Recommend holding at clears to fulls for now given distension
-- Tentative Xray tomorrow am
Subjective Data
-
Date of Service: September 14, 2024
Patient seen and examined at bedside with Dr. Herrera. Feels 'crappy' overall. Denies n/v and is passing some flatus. Some abdominal pain still present, generalized and stable from previous. No BM's.
Objective Data
-
Intake and Output
09/13/24 09/14/24 09/15/24
06:59 06:59 06:59
Intake Total 2099
Balance 2099
Intake:
Oral fluids 600 / 600
IV fluids (Total) 1500 / 1500
Other:
Number of approximated MODERATE 1
amounts of urine
How many times incontinent 2
MODERATE amount urine
How many times incontinent 1 2
SATURATED amount urine
Vital Signs
Temp Pulse Resp BP Pulse Ox
98.0 F 59 21 154/73 95
09/14/24 03:01 09/14/24 06:02 09/14/24 06:02 09/14/24 06:02 09/14/24 06:02
Lab Results
09/14/24 08:58
09/14/24 08:58
Calcium 8.8 mg/dl (8.4-10.2) 09/14/24 08:58
Magnesium 2.3 mg/dl (1.6-2.3) 09/14/24 08:58
Total Bilirubin 1.2 mg/dl (0.2-1.3) 09/11/24 05:57
AST 15 U/L (17-59) L 09/11/24 05:57
ALT 10 U/L (0-50) 09/11/24 05:57
Alkaline Phosphatase 65 U/L (38-126) 09/11/24 05:57
Total Protein 6.2 g/dl (6.3-8.2) L 09/11/24 05:57
Albumin 3.5 g/dl (3.5-5.0) 09/11/24 05:57
Physical Exam
-
Gen: NAD
Abd: soft, NT, distended, tympanitic, non-peritoneal
Patient has a arechiga catheter: No
Patient has a central line: No
--- NOTE | 2024-09-14 10:33 | W.PN.ID1 ---
Date of Service
Date of Service: September 14, 2024
Today's Communication
Observe off antibiotics.
Assessment / Plan
Weakness
- etiology unclear but may be multifactorial.
Reported history of recurrent urinary tract infection
- Admission urinalysis not consistent with UTI
- Pt essentially without urinary symptomatology
Leukocytosis; resolved
Ileus
HTN
HLD
A-fib (on Eliquis)
IDDM
CVA
GUILLERMO (on CPAP)
Gait dysfunction
BPH left carotid stenosis
Recommendations:
Observe off antibiotics.
Would attempt to avoid 'suppressive' antibiotic therapy as this will likely only lead to increasing bacterial resistance.
Monitor white count & temperature curve.
Chief Complaint
-: UTI
Subjective / Review of Systems
Review of Systems: No Fever, No Chills and No Dysuria
Vital Signs / Physical Exam
Vital Signs
Vital Signs
Temp Pulse Resp BP Pulse Ox
97.5 F 59 21 154/73 95
09/14/24 07:19 09/14/24 06:02 09/14/24 06:02 09/14/24 06:02 09/14/24 06:02
Physical Exam
Constitutional: No Acute Distress, Comfortable, Chronically Ill, Non-toxic and Obese
Cardiovascular: S1/S2; Negative S3/S4
Pulmonary: Non Labored
Gastrointestinal: Soft, Non Tender and Non Distended
Neurological: Awake and Alert
Psychological: Calm
Objective Data
Lab Data
Lab Results
09/14/24 08:58
09/14/24 08:58
PT 15.5 Sec (11.4-14.6) H 09/09/24 13:31
INR 1.20 09/09/24 13:31
APTT 33.2 Sec (23.4-35.0) 09/09/24 13:31
Estimated Creat Clear 85 ml/min 09/14/24 08:58
Total Bilirubin 1.2 mg/dl (0.2-1.3) 09/11/24 05:57
AST 15 U/L (17-59) L 09/11/24 05:57
ALT 10 U/L (0-50) 09/11/24 05:57
Alkaline Phosphatase 65 U/L (38-126) 09/11/24 05:57
Most recent labs reviewed.
Micro Results:
09/09/24 17:04 Blood Culture - Preliminary
Blood/Venous No Growth in 4 days- Final report to follow
09/09/24 17:04 Blood Culture - Preliminary
Blood/Venous No Growth in 4 days- Final report to follow
09/09/24 15:21 Urine Culture - Final
Urine NO GROWTH
Imaging:
09/10/2024 MRI brain without contrast: No MRI evidence for acute infarct. 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 Tiny chronic ischemic infarct in the superior left cerebellar hemisphere. Minimal
periventricular white matter leukoaraiosis. Moderate diffuse cerebral and cerebellar volume loss. 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
[2024-09-14 12:14] LABS: Glucose - Point of Care 166 mg/dl (70-99)
[2024-09-14] MEDS: NOVOLOG FLEXPEN-LOW RESISTANCE 1 UNITS SC ×2 (12:20→17:23)
--- NOTE | 2024-09-14 12:30 | PTCARENOTE ---
Addendum entered by Anselmo Calvillo RN 09/14/24 18:09:
Patient with 2 small, CLEAR, mucous/liquid BMs today
Addendum entered by Anselmo Calvillo RN 09/14/24 17:20:
Patient reports he 'tweaked' his neck while in bed, c/o soreness and pain with turning head in back of neck at top of back. Motrin ordered. Repositioned for comfort.
Original Note:
Patient AAOx2, drowsy, up in chair with at bedside. Per , usually not drowsy. Patient did not wear home cpap overnight. BS was low this AM, notified, insulins held, current BS 166. Patient c/o hoarse/weak voice. NSR/NSB on monitor. RA.
VSS. +BS, distended, no N/V. Tolerating CLD. Call killian within reach. Will closely monitor patient.
--- NOTE | 2024-09-14 15:28 | CM ---
Patient from [facility] independent living with Dx adynamic ileus, JERRY likely secondary to UTI, Delirium/confusion. Room air. Clear liquids. Per nurse; drowsy. PT/OT recommending skilled rehab.
Message from Resident Law; patient may possibly be ready for d/c to SNF on 09/17.
Spoke with Columba, [facility] (cell [phone]); they are able to accept the patient when he is medically ready, including over the holiday weekend. Columba is the point of contact on the weekend and Tue/. She has
preliminarily submitted for his insurance auth and he is approved for rehab. Call Columba on day of discharge for phone for report & fax.
Spoke with patient's Cely (cell [phone]); she feels her is more drowsy today because he did not wear his CPAP last night. Provided update to Cely that [facility] indicated that rehab was approved by his insurance.
agrees with discharge to [facility] SNF for short term rehab when medically ready.
Plan [facility] SNF when medically ready.
[2024-09-14 16:44] LABS: Glucose - Point of Care 166 mg/dl (70-99)
[2024-09-14] MEDS: MOTRIN 200 MG PO ×2 (17:22→21:53)
[2024-09-14] MEDS: FLOMAX 0.4 MG PO (17:23)
[2024-09-14] MEDS: PROSCAR 5 MG PO (17:23)
[2024-09-14] MEDS: HUMULIN N KWIKPEN 50 UNITS SC (17:25)
--- NOTE | 2024-09-14 22:05 | PTCARENOTE ---
Pt c/o 02/01 neck pain, repositioning provided, medicated per JUN. Abdomen remains distended, round. Pt with episode of saturated incontinence, full bed change and hygiene care performed. Care ongoing.
[2024-09-14 22:07] LABS: Glucose - Point of Care 225 mg/dl (70-99)
[2024-09-15] VITALS (13 sets, daily range): BP systolic 95–177; BP diastolic 48–124; BMI 34.9
[2024-09-15 05:05] LABS: % Basophils 0.2 % (0-2); % Eosinophils 5.7 % (0-6); % Immature Granulocytes 0.4 % (0-0.5); % Monocytes 9.4 % (1.7-9.3); % Neutrophils 60.3 % (42.2-75.2); Absolute Eosinophils 0.5 10^3/uL (0-0.7); Absolute Lymphocytes 1.9 10^3/uL (1.2-3.4); Absolute Monocytes 0.8 10^3/uL (0.1-0.6); Absolute Neutrophils 4.9 10^3/uL (1.4-6.5); Hematocrit 38.9 % (39.0-52.0); Hemoglobin 13.4 g/dL (13.0-18.0); Mean Corp Hgb Conc. 34.4 g/dL (33.0-37.0); Mean Corpuscular Hgb 32.4 pg (27.0-31.0); Mean Corpuscular Volume 94.2 fL (80.0-94.0); Nucleated Red Blood Cells % 0 % (-); Platelet Count 220 10^3/uL (130-400); Red Blood Cell Count 4.13 10^6/uL (4.70-6.10); Red Cell Dist. Width 12.5 % (11.5-14.5); White Blood Cell Count 8.1 10^3/uL (4.8-10.8)
[2024-09-15 05:28] LABS: Blood Urea Nitrogen 10 mg/dl (9-20); Estimated Creatinine Clearance 85 ml/min; Glucose 87 mg/dl (70-99)
[2024-09-15 05:29] LABS: ALT (SGPT) 10 U/L (0-50); AST (SGOT) 14 U/L (17-59); Albumin 3.4 g/dl (3.5-5.0); Alkaline Phosphatase 65 U/L (38-126); Calcium 8.3 mg/dl (8.4-10.2); Carbon Dioxide 25 mmol/L (22-30); Chloride 110 mmol/L (98-107); Magnesium 2.1 mg/dl (1.6-2.3); Potassium 3.5 mmol/L (3.5-5.1); Sodium 141 mmol/L (135-145); Total Bilirubin 1.2 mg/dl (0.2-1.3); Total Protein 6.1 g/dl (6.3-8.2); eGFR > 60.00
[2024-09-15 08:06] LABS: Glucose - Point of Care 99 mg/dl (70-99)
[2024-09-15] MEDS: VISBIOME 1 CAP PO (08:14)
[2024-09-15] MEDS: NSS (PRESERVATIVE FREE) 10 ML IV (08:14)
[2024-09-15] MEDS: VITAMIN C 500 MG PO ×2 (08:14→19:50)
[2024-09-15] MEDS: MUCINEX 600 MG PO ×2 (08:14→17:31)
[2024-09-15] MEDS: ELIQUIS 5 MG PO ×2 (08:14→19:51)
[2024-09-15] MEDS: TYLENOL 1000 MG PO ×2 (08:14→19:50)
[2024-09-15] MEDS: OCUVITE SOFTGEL 1 CAP PO ×2 (08:14→19:51)
[2024-09-15] MEDS: PROTONIX IV 40 MG IV (08:15)
[2024-09-15] MEDS: NOVOLOG FLEXPEN-LOW RESISTANCE SC ×3 (08:15→17:04)
[2024-09-15] MEDS: HUMULIN N KWIKPEN 60 UNITS SC (08:15)
[2024-09-15] MEDS: MIRALAX 17 GRAMS PO (08:15)
--- NOTE | 2024-09-15 09:00 | W.PN.HOSP.TC ---
Today's Communication/Plan
-
Assessment / Plan
Assessment / Plan
NAD
Scleral Anicteric
MMM
No JVD
CTABL
RRR, S1/S2
On the harder side however not peritonitic, NT, distended, bs+
Warm, Dry
AAOx3
Calm
Toxic metabolic encephalopathy, unclear as to etiology of waxes/wanes
Urine analysis not consistent with UTI however was on antibiotics. Urine culture without growth. ID discontinued antibiotics and recommended against suppressive therapy as this would increase resistance
Adynamic ileus, distention, repeat abd xray this AM, hold advancing diet, may need ngt, surgery following
Avoid agents that slow peristalsis
Keep K >4, Mg >2
Delirium unclear as to etiology could be hospital-acquired or infectious related. Continue Rocephin for now offered Zyprexa however declined. Hold Lyrica
Atrial fibrillation paroxysmal
Currently in sinus rhythm, continue Eliquis
Diabetes insulin-dependent continue NPH Accu-Chek sliding scale goal blood glucose 140-180 carb controlled diet
Orthostatic hypotension continue midodrine
Pulmonary nodules follow-up with PCP
BPH continue finasteride and Flomax
Anticipated Discharge: > 48 hours
Subjective/Interval History
-
Date of Service: September 15, 2024
Seen and examined. No new complaints. No acute overnight events.
He states he is passing a lot gas
Attempting to eat is clear liquid diet however cannot reach adjusted to head of bed which she was happy with
States has not gotten out of bed as of yet and is waiting for nursing
Objective Data
-
Labs:
Laboratory Results
09/15/24
04:51
WBC 8.1
Hgb 13.4
Hct 38.9 L
Plt Count 220
Sodium 141
Potassium 3.5
Chloride 110 H
Carbon Dioxide 25
BUN 10
Creatinine 0.8
Glucose 87
Calcium 8.3 L
Total Bilirubin 1.2
AST 14 L
ALT 10
Alkaline Phosphatase 65
Vital Signs:
Vital Signs
Temp Pulse Resp BP Pulse Ox
99.0 F 64 17 106/56 95
09/15/24 07:00 09/15/24 06:00 09/15/24 06:00 09/15/24 06:00 09/14/24 20:04
[2024-09-15] MEDS: KCL 40 MEQ PO (09:27)
[2024-09-15 12:41] LABS: Glucose - Point of Care 141 mg/dl (70-99)
--- NOTE | 2024-09-15 13:15 | W.PN.GS2 ---
Addendum entered and electronically signed by Mayur Soriano MD 09/15/24 15:17:
I saw and examined the patient.
The FORMULATION SCIENTIST's note was reviewed and I agree with the note.
Comment:
Seen earlier with FORMULATION SCIENTIST.
No pain. No nausea.
AFVSS; WBC 8.1.
Abdomen distended but nontender.
XRay with ileus.
Continue clears for now.
Original Note:
Today's Communication / Plan
-
Clears
Assessment / Plan
-
Patient is an 88 yo M with an ileus likely secondary to underlying infectious versus neurologic issues
Still passing flatus without complaints of n/v. Exam remains distended and tympanitic
09/13 XR abd c/w ileus, XR today with similar findings
AFVSS
-- Continue CLD
-- Management as per primary team
Subjective Data
-
Date of Service: September 15, 2024
Patient seen and evaluated at bedside with Dr. Soriano. Logan n/v. OOB to chair and tolerating clears. No BM's, not really passing flatus. Denies pain. at bedside, updated.
Objective Data
-
Intake and Output
09/14/24 09/15/24 09/16/24
06:59 06:59 06:59
Other:
Number of approximated MODERATE 1
amounts of urine
How many times incontinent 2 3
MODERATE amount urine
How many times incontinent 2 1 1
SATURATED amount urine
Vital Signs
Temp Pulse Resp BP Pulse Ox
97.9 F 66 21 110/59 95
09/15/24 11:00 09/15/24 10:00 09/15/24 10:00 09/15/24 08:00 09/15/24 11:20
Lab Results
09/15/24 04:51
09/15/24 04:51
Calcium 8.3 mg/dl (8.4-10.2) L 09/15/24 04:51
Magnesium 2.1 mg/dl (1.6-2.3) 09/15/24 04:51
Total Bilirubin 1.2 mg/dl (0.2-1.3) 09/15/24 04:51
AST 14 U/L (17-59) L 09/15/24 04:51
ALT 10 U/L (0-50) 09/15/24 04:51
Alkaline Phosphatase 65 U/L (38-126) 09/15/24 04:51
Total Protein 6.1 g/dl (6.3-8.2) L 09/15/24 04:51
Albumin 3.4 g/dl (3.5-5.0) L 09/15/24 04:51
Physical Exam
-
NAD
ABD softly distended, NT, FORMULATION SCIENTIST
[2024-09-15 17:02] LABS: Glucose - Point of Care 111 mg/dl (70-99)
[2024-09-15] MEDS: HUMULIN N KWIKPEN 50 UNITS SC (17:05)
[2024-09-15] MEDS: FLOMAX 0.4 MG PO (17:31)
[2024-09-15] MEDS: PROSCAR 5 MG PO (17:32)
--- NOTE | 2024-09-15 18:12 | PTCARENOTE ---
Rec'd pt this AM. pleasantly confused. OOB to chair x2 assist. tolerating clear liquid diet. comfortable in bedside chair.
--- NOTE | 2024-09-15 23:24 | PTCARENOTE ---
received pt from ambika ASHLEY. pt aaox2-3, confused/forgetful at times, pleasant. NSR with BBB on monitor. Abdomen remains firm, distended, tympanic. Bowel sounds present. Pt admits to passing some gas, but not much. Pills taken one at a time, whole
in applesauce. VSS. Pt resting comfortably in bed with pt own cpap machine. Care ongoing.
[2024-09-16] VITALS (12 sets, daily range): BP systolic 116–168; BP diastolic 56–99; BMI 34.6
[2024-09-16] MEDS: NOVOLOG FLEXPEN-LOW RESISTANCE SC ×2 (09:09→11:49)
[2024-09-16] MEDS: MUCINEX 600 MG PO ×2 (09:10→18:12)
[2024-09-16] MEDS: HUMULIN N KWIKPEN SC (09:10)
[2024-09-16] MEDS: OCUVITE SOFTGEL 1 CAP PO ×2 (09:10→19:50)
[2024-09-16] MEDS: VITAMIN C 500 MG PO ×2 (09:10→19:50)
[2024-09-16] MEDS: PROTONIX IV 40 MG IV (09:11)
[2024-09-16] MEDS: ELIQUIS 5 MG PO ×2 (09:11→19:50)
[2024-09-16] MEDS: VISBIOME 1 CAP PO (09:11)
[2024-09-16] MEDS: MIRALAX 17 GRAMS PO (09:11)
[2024-09-16] MEDS: TYLENOL 1000 MG PO ×2 (09:11→19:50)
[2024-09-16] MEDS: NSS (PRESERVATIVE FREE) 10 ML IV (09:11)
[2024-09-16 09:17] LABS: Glucose - Point of Care 66 mg/dl (70-99)
[2024-09-16 09:36] LABS: Glucose - Point of Care 69 mg/dl (70-99)
[2024-09-16 09:59] LABS: Glucose - Point of Care 71 mg/dl (70-99)
--- NOTE | 2024-09-16 10:54 | W.PN.HOSP.TC ---
Today's Communication/Plan
-
Assessment / Plan
Assessment / Plan
NAD
Scleral Anicteric
MMM
No JVD
CTABL
RRR, S1/S2
On the harder side however not peritonitic, NT, distended, bs+
Warm, Dry
AAOx3
Calm
Toxic metabolic encephalopathy, unclear as to etiology of waxes/wanes
Urine analysis not consistent with UTI however was on antibiotics. Urine culture without growth. ID discontinued antibiotics and recommended against suppressive therapy as this would increase resistance
Adynamic ileus, distention, repeat abd xray this AM, surgery advancing to full liquid diet
Avoid agents that slow peristalsis
Keep K >4, Mg >2
Delirium unclear as to etiology could be hospital-acquired or infectious related. Continue Rocephin for now offered Zyprexa however declined. Hold Lyrica
Atrial fibrillation paroxysmal
Currently in sinus rhythm, continue Eliquis
Diabetes insulin-dependent continue NPH Accu-Chek sliding scale goal blood glucose 140-180 carb controlled diet
Orthostatic hypotension continue midodrine
Pulmonary nodules follow-up with PCP
BPH continue finasteride and Flomax
Anticipated Discharge: > 48 hours
Subjective/Interval History
-
Date of Service: September 16, 2024
Seen and examined. No new complaints. No acute overnight events.
Objective Data
-
Vital Signs:
Vital Signs
Temp Pulse Resp BP Pulse Ox
96.8 F L 59 17 168/80 99
09/16/24 07:04 09/16/24 08:00 09/16/24 08:00 09/16/24 08:00 09/16/24 10:01
I&O
09/15/24 09/16/24 09/17/24
06:59 06:59 06:59
Intake Total 840 / 840
Balance 840 / 840
--- NOTE | 2024-09-16 10:57 | W.PN.GS2 ---
Today's Communication / Plan
-
Full liquids
Assessment / Plan
-
Patient is an 88 yo M with an ileus likely secondary to underlying infectious versus neurologic issues
Passing some liquid stools now, exam improved
09/13 XR abd c/w ileus, XR 09/15 with similar findings
AFVSS
-- Trial of full liquids
-- Management as per primary team
Message left for patient's spouse updating her on his diet advancement /status
Subjective Data
-
Date of Service: September 16, 2024
Patient seen and examined at bedside with Dr. Soriano. Denies n/v. Denies pain. Pt nurse reports he has been passing some liquid stool. Would like to have chocolate milk.
Objective Data
-
Intake and Output
09/15/24 09/16/24 09/17/24
06:59 06:59 06:59
Intake Total 840 / 840
Balance 840 / 840
Intake:
Oral fluids 840 / 840
Other:
How many times incontinent 3 1
MODERATE amount urine
How many times incontinent 1 2
SATURATED amount urine
Vital Signs
Temp Pulse Resp BP Pulse Ox
96.8 F L 59 17 168/80 99
09/16/24 07:04 09/16/24 08:00 09/16/24 08:00 09/16/24 08:00 09/16/24 10:01
Lab Results
09/15/24 04:51
09/15/24 04:51
Calcium 8.3 mg/dl (8.4-10.2) L 09/15/24 04:51
Magnesium 2.1 mg/dl (1.6-2.3) 09/15/24 04:51
Total Bilirubin 1.2 mg/dl (0.2-1.3) 09/15/24 04:51
AST 14 U/L (17-59) L 09/15/24 04:51
ALT 10 U/L (0-50) 09/15/24 04:51
Alkaline Phosphatase 65 U/L (38-126) 09/15/24 04:51
Total Protein 6.1 g/dl (6.3-8.2) L 09/15/24 04:51
Albumin 3.4 g/dl (3.5-5.0) L 09/15/24 04:51
Physical Exam
-
NAD
ABD softly distended (improved), NT, TINT LAYER
--- NOTE | 2024-09-16 11:00 | PTCARENOTE ---
Assumed care of patient this morning. He is only oriented to himself, unable to tell me place or time. Patient denies any abdominal pain or nausea. Pt asking for solid food. RN educated patient on current diet. Pt is having clear liquid BM's,
surgery updated and were at the bedside. Pt's shortly at bedside just after and hospitalist in talking with her. Pt's blood sugar low this morning, aware, see flowsheet. Assessment, care and VS as charted.
[2024-09-16 12:00] LABS: Glucose - Point of Care 117 mg/dl (70-99)
[2024-09-16 14:16] LABS: Glucose - Point of Care 220 mg/dl (70-99)
[2024-09-16 16:52] LABS: Glucose - Point of Care 233 mg/dl (70-99)
[2024-09-16] MEDS: NOVOLOG FLEXPEN-LOW RESISTANCE 2 UNITS SC (16:59)
[2024-09-16] MEDS: PROSCAR 5 MG PO (17:00)
[2024-09-16] MEDS: HUMULIN N KWIKPEN 50 UNITS SC (17:00)
[2024-09-16] MEDS: FLOMAX 0.4 MG PO (17:00)
[2024-09-16 22:01] LABS: Glucose - Point of Care 221 mg/dl (70-99)
--- NOTE | 2024-09-16 23:18 | PTCARENOTE ---
Received patient at start of shift from dayshift rn. Patient aao x1 to self, affect pleasant, confusion noted. Patient had bm at start of shift; large, loose, brown and noted to be incontinent of moderate amount of yellow urine. Hygiene provided at
that time and barrier cream applied. Abdomen round, soft, nontender, bs noted. Call killian within reach, patient able to use appropriately. Will continue to monitor patient closely.
[2024-09-17] VITALS (11 sets, daily range): BP systolic 130–171; BP diastolic 66–100; BMI 35.1
[2024-09-17 03:34] LABS: Glucose - Point of Care 128 mg/dl (70-99)
[2024-09-17] MEDS: MUCINEX 600 MG PO ×2 (06:13→18:01)
--- NOTE | 2024-09-17 06:36 | PTCARENOTE ---
Overnight patient removed CPAP and states, 'I dont think its working'. Patient pox and rr stable all night. RN called RT Chong. Chong RT to bedside to assess. RT Chong confirms CPAP working correctly. Patient confused throughout shift. Will continue to
monitor.
[2024-09-17 08:07] LABS: Glucose - Point of Care 129 mg/dl (70-99)
[2024-09-17] MEDS: VISBIOME 1 CAP PO (08:22)
[2024-09-17] MEDS: NOVOLOG FLEXPEN-LOW RESISTANCE SC (08:22)
[2024-09-17] MEDS: VITAMIN C 500 MG PO ×2 (08:22→19:30)
[2024-09-17] MEDS: OCUVITE SOFTGEL 1 CAP PO ×2 (08:22→19:31)
[2024-09-17] MEDS: NSS (PRESERVATIVE FREE) 10 ML IV (08:23)
[2024-09-17] MEDS: PROTONIX IV 40 MG IV (08:23)
[2024-09-17] MEDS: MIRALAX PO (08:23)
[2024-09-17] MEDS: TYLENOL 1000 MG PO ×2 (08:23→19:31)
[2024-09-17] MEDS: ELIQUIS 5 MG PO ×2 (08:23→19:30)
--- NOTE | 2024-09-17 08:45 | W.PN.HOSP.TC ---
Today's Communication/Plan
-
Hold MiraLAX
C. difficile toxin and antigen
Advance diet to low residue
Repeat abdominal x-ray tomorrow
Assessment / Plan
Assessment / Plan
Impression
Patient is a 88-year-old male, past medical history significant for recurrent UTIs, has been on multiple antibiotics including Bactrim, nitrofurantoin, fosfomycin and as per he is very confused and disoriented when he has a UTI. On admission
he was already on antibiotics so urine analysis not confirmatory, empirically started on Rocephin, urine culture came back negative as he was on antibiotics. ID consulted decided to observe off antibiotics.
Evaluated by neurology for his confusion, head CT/CT reviewed and was found to have left carotid stenosis 60% and right carotid stenosis 45%. As per neuro, no new stroke but the risk of stroke from left carotid stenosis remains high with overall
poor health and dementia.
Patient's abdomen was very distended on admission, obstruction series was consistent with adynamic ileus, surgery following, decided to do conservative measures
Currently is on full liquid diet as advised by surgery.
Toxic metabolic encephalopathy, unclear as to etiology of waxes/wanes
Urine analysis not consistent with UTI however was on antibiotics. Urine culture without growth. ID discontinued antibiotics and recommended against suppressive therapy as this would increase resistance
Assessment/plan
#Adynamic ileus secondary to infectious versus neurological issues
Last bowel movement this morning, loose brown stool
Tolerating full liquid diet
Surgery following
Keep potassium greater than 4 and magnesium greater than 2
Avoid opioids and gut slowing medications
Complained of multiple loose stools, hold MiraLAX, send C. difficile testing
Advance diet to low residue
Repeat abdominal x-ray in the morning
#Delirium unclear as to etiology could be hospital-acquired or infectious related
Lyrica remains on hold
Frequent reorientation, offered Zyprexa, declined by
#Atrial fibrillation paroxysmal
Currently in sinus rhythm, continue Eliquis
#UTI-urine analysis on admission not consistent with UTI, received Rocephin empirically as the urinalysis was questionable given the patient was already on antibiotics, later ID discontinued Rocephin, currently remains off antibiotics
#Diabetes insulin-dependent continue NPH Accu-Chek sliding scale goal blood glucose 140-180 carb controlled diet
#Orthostatic hypotension continue midodrine
#Pulmonary nodules follow-up with PCP
#BPH continue finasteride and Flomax
Anticipated Discharge: 24 - 48 hours
Subjective/Interval History
-
Date of Service: September 17, 2024
Feels well, slept well, feels hungry, multiple loose stools
Objective Data
-
Vital Signs:
Vital Signs
Temp Pulse Resp BP Pulse Ox
97.8 F 60 19 136/76 86
09/17/24 08:32 09/17/24 06:00 09/17/24 06:00 09/17/24 06:00 09/17/24 06:00
I&O
09/16/24 09/17/24 09/18/24
06:59 06:59 06:59
Intake Total 840 / 840 1560 / 1560
Balance 840 / 840 1560 / 1560
Review of Systems
-
All other systems: Reviewed and negative
Physical Exam
-
General: No Apparent Distress
HEENT: Moist Mucous Membranes and Anicteric
Respiratory: Clear to Auscultation; Negative Wheezes, Rales or Rhonchi
Cardiac: Regular Rhythm and S1/S2
GI: Nontender, Normal Bowel Sounds (Tinkling bowel sounds) and Other (Firm to palpation)
Skin: Warm and Dry
Neuro: Awake and Oriented
Psych: Calm
[2024-09-17] MEDS: HUMULIN N KWIKPEN 60 UNITS SC (08:48)
[2024-09-17 09:50] LABS: % Basophils 0.3 % (0-2); % Eosinophils 7.8 % (0-6); % Immature Granulocytes 0.3 % (0-0.5); % Lymphocytes 25.4 % (20.5-51.1); % Neutrophils 58.2 % (42.2-75.2); Absolute Eosinophils 0.5 10^3/uL (0-0.7); Absolute Lymphocytes 1.8 10^3/uL (1.2-3.4); Absolute Monocytes 0.6 10^3/uL (0.1-0.6); Hematocrit 42.6 % (39.0-52.0); Hemoglobin 14.2 g/dL (13.0-18.0); Mean Corp Hgb Conc. 33.3 g/dL (33.0-37.0); Mean Corpuscular Hgb 32.2 pg (27.0-31.0); Mean Corpuscular Volume 96.6 fL (80.0-94.0); Mean Platelet Volume 9.9 fL (7.4-10.4); Nucleated Red Blood Cells % 0 % (-); Platelet Count 272 10^3/uL (130-400); Red Blood Cell Count 4.41 10^6/uL (4.70-6.10); Red Cell Dist. Width 12.7 % (11.5-14.5); White Blood Cell Count 6.9 10^3/uL (4.8-10.8)
[2024-09-17 10:04] LABS: Blood Urea Nitrogen 9 mg/dl (9-20); Calcium 8.7 mg/dl (8.4-10.2); Carbon Dioxide 30 mmol/L (22-30); Chloride 107 mmol/L (98-107); Estimated Creatinine Clearance 76 ml/min; Glucose 146 mg/dl (70-99); Magnesium 2.1 mg/dl (1.6-2.3); Potassium 4.4 mmol/L (3.5-5.1); Sodium 142 mmol/L (135-145); eGFR > 60.00
--- NOTE | 2024-09-17 10:54 | PTCARENOTE ---
Assumed care of patient this morning. He is oriented to himself, did not know he was in the hospital. Pt was incontinent of a medium, loose BM. at the bedside and made aware pt having multiple loose BM's. Pericare performed and Miralax held
this morning. Pt's abdomen still round and distended. at bedside and updated. Assessment, care and VS as charted.
--- NOTE | 2024-09-17 11:12 | W.PN.GS2 ---
Today's Communication / Plan
-
`
Assessment / Plan
-
Assessment: 88 yo M with an ileus likely secondary to underlying infectious versus neurologic issues
AFVSS
clinically improving with multiple BMs over last 24hrs although still distended on exam
Plan: advance to low residue/diabetic diet as tolerated
holding on further imaging pending tolerance of dietary advancement
Subjective Data
-
Date of Service: September 17, 2024
pt seen and examined
at bedside
patient denies abdominal pain, uncertain if he is distended/bloated
denies nausea/vomiting
tolerating full liquid diet well
multiple BMs
Objective Data
-
Intake and Output
09/16/24 09/17/24 09/18/24
06:59 06:59 06:59
Intake Total 840 / 840 1560 / 1560 480 / 480
Balance 840 / 840 1560 / 1560 480 / 480
Intake:
Oral fluids 840 / 840 1560 / 1560 480 / 480
Other:
Number of approximated MODERATE 1
amounts of urine
How many times incontinent 1
MODERATE amount urine
How many times incontinent 2 1 1
SATURATED amount urine
Vital Signs
Temp Pulse Resp BP Pulse Ox
97.8 F 71 22 130/98 93
09/17/24 08:32 09/17/24 10:00 09/17/24 10:00 09/17/24 10:00 09/17/24 10:49
Lab Results
09/17/24 09:23
09/17/24 09:23
Calcium 8.7 mg/dl (8.4-10.2) 09/17/24 09:23
Magnesium 2.1 mg/dl (1.6-2.3) 09/17/24 09:23
Total Bilirubin 1.2 mg/dl (0.2-1.3) 09/15/24 04:51
AST 14 U/L (17-59) L 09/15/24 04:51
ALT 10 U/L (0-50) 09/15/24 04:51
Alkaline Phosphatase 65 U/L (38-126) 09/15/24 04:51
Total Protein 6.1 g/dl (6.3-8.2) L 09/15/24 04:51
Albumin 3.4 g/dl (3.5-5.0) L 09/15/24 04:51
Physical Exam
-
NAD AAO
ABD: distended and tympanic but not tender
[2024-09-17 11:54] LABS: Glucose - Point of Care 206 mg/dl (70-99)
[2024-09-17] MEDS: NOVOLOG FLEXPEN-LOW RESISTANCE 2 UNITS SC (12:42)
--- NOTE | 2024-09-17 13:56 | W.PN.UPDATE ---
Update Note
Progress Note Update
Seen and examined by me independently in collaboration with the medical receptionist assistant.
Lab data and imaging data reviewed.
Addendum as below :
No agitation or behavioral issues today. at bedside finds him improved.
Denying any GI symptoms. Abdomen soft, tympanic. Ongoing loose stools. He is on clear liquids. Ongoing medical treatment for adynamic ileus. Start on solid diet. Check stools for C. difficile with recent exposure to antibiotics.
Continue with physical therapy.
Transfer out of IMU to telemetry.
[2024-09-17] MEDS: NOVOLOG FLEXPEN-LOW RESISTANCE 1 UNITS SC (17:17)
[2024-09-17] MEDS: FLOMAX 0.4 MG PO (17:17)
[2024-09-17] MEDS: PROSCAR 5 MG PO (17:17)
[2024-09-17] MEDS: HUMULIN N KWIKPEN 50 UNITS SC (17:18)
[2024-09-17 17:22] LABS: Glucose - Point of Care 178 mg/dl (70-99)
[2024-09-17 21:13] LABS: Glucose - Point of Care 153 mg/dl (70-99)
[2024-09-18] VITALS (12 sets, daily range): BP systolic 120–166; BP diastolic 52–98; PULSE 65; BMI 33.4
--- NOTE | 2024-09-18 00:01 | PTCARENOTE ---
Patient unable to operate home CPAP. Respiratory made aware and offered help but patient ultimately took off CPAP.
[2024-09-18 03:42] LABS: Hematocrit 39.4 % (39.0-52.0); Hemoglobin 13.8 g/dL (13.0-18.0); Mean Corpuscular Hgb 32.6 pg (27.0-31.0); Mean Corpuscular Volume 93.1 fL (80.0-94.0); Platelet Count 282 10^3/uL (130-400); Red Blood Cell Count 4.23 10^6/uL (4.70-6.10); Red Cell Dist. Width 12.4 % (11.5-14.5); White Blood Cell Count 6.6 10^3/uL (4.8-10.8)
[2024-09-18 05:00] LABS: Blood Urea Nitrogen 12 mg/dl (9-20); Calcium 8.6 mg/dl (8.4-10.2); Carbon Dioxide 24 mmol/L (22-30); Chloride 110 mmol/L (98-107); Estimated Creatinine Clearance 76 ml/min; Glucose 61 mg/dl (70-99); Magnesium 2.1 mg/dl (1.6-2.3); Potassium 3.8 mmol/L (3.5-5.1); Sodium 141 mmol/L (135-145); eGFR > 60.00
[2024-09-18 05:28] LABS: Glucose - Point of Care 66 mg/dl (70-99)
[2024-09-18 05:58] LABS: Glucose - Point of Care 65 mg/dl (70-99)
[2024-09-18] MEDS: MUCINEX 600 MG PO (06:08)
[2024-09-18 06:22] LABS: Glucose - Point of Care 72 mg/dl (70-99)
[2024-09-18 07:39] LABS: Glucose - Point of Care 89 mg/dl (70-99)
[2024-09-18] MEDS: NOVOLOG FLEXPEN-LOW RESISTANCE SC (07:43)
[2024-09-18] MEDS: VITAMIN C 500 MG PO (07:43)
[2024-09-18] MEDS: VISBIOME 1 CAP PO (07:43)
[2024-09-18] MEDS: OCUVITE SOFTGEL 1 CAP PO (07:43)
[2024-09-18] MEDS: ELIQUIS 5 MG PO (07:43)
[2024-09-18] MEDS: DESENEX/MITRAZOL/ZEASORB 1 APPLIC TOPICAL (07:43)
[2024-09-18] MEDS: TYLENOL 1000 MG PO (07:44)
[2024-09-18] MEDS: PROTONIX IV 40 MG IV (07:44)
[2024-09-18] MEDS: NSS (PRESERVATIVE FREE) 10 ML IV (07:44)
--- NOTE | 2024-09-18 08:07 | W.PN.HOSP.TC ---
Addendum entered and electronically signed by Jermaine Lincoln MD 09/18/24 14:16:
Seen and examined by me independently in collaboration with the general medical practitioner.
Lab data and imaging data reviewed.
Addendum as below :
Patient without any urinary symptoms. Stable off of antibiotics. Alert and oriented today without agitation this morning.
Denies any GI symptoms and tolerating low residue diet. Abdomen soft and nontender.
Yesterday he had loose stools unclear if its secondary to resolving ileus or the laxatives he was on. Today with no diarrhea. C. difficile shows antigen positive but toxin negative and with no ongoing diarrhea suspect colonization and would hold
on any anti-C. diff treatments.
Medically stable, DC to rehab.
Total time of discharge 35 minutes
Original Note:
Today's Communication/Plan
-
Monitor blood pressure
Monitor blood sugars
Replete potassium
Keep midodrine on hold
Plan discharge
Assessment / Plan
Assessment / Plan
Impression
Patient is a 88-year-old male, past medical history significant for recurrent UTIs, has been on multiple antibiotics including Bactrim, nitrofurantoin, fosfomycin and as per he is very confused and disoriented when he has a UTI. On admission
he was already on antibiotics so urine analysis not confirmatory, empirically started on Rocephin, urine culture came back negative as he was on antibiotics. ID consulted decided to observe off antibiotics.
Evaluated by neurology for his confusion, head CT/CT reviewed and was found to have left carotid stenosis 60% and right carotid stenosis 45%. As per neuro, no new stroke but the risk of stroke from left carotid stenosis remains high with overall
poor health and dementia.
Patient's abdomen was very distended on admission, obstruction series was consistent with adynamic ileus, surgery following, decided to do conservative measures
Currently is on full liquid diet as advised by surgery.
Toxic metabolic encephalopathy, unclear as to etiology of waxes/wanes
Urine analysis not consistent with UTI however was on antibiotics. Urine culture without growth. ID discontinued antibiotics and recommended against suppressive therapy as this would increase resistance
Assessment/plan
#Adynamic ileus secondary to infectious versus neurological issues
Last bowel movement this morning, loose brown stool
Tolerating full liquid diet
Surgery following
Keep potassium greater than 4 and magnesium greater than 2
Avoid opioids and gut slowing medications
Complained of multiple loose stools, hold MiraLAX, send C. difficile testing
Advanced diet to low residue-tolerating well
Bowel sounds normal,abdomen soft
#Delirium unclear as to etiology could be hospital-acquired or infectious related
Lyrica remains on hold
Frequent reorientation, offered Zyprexa, declined by
#Atrial fibrillation paroxysmal
Currently in sinus rhythm, continue Eliquis
#UTI-urine analysis on admission not consistent with UTI, ID discontinued antibiotics,advised against suppressive antibiotic therapy
#Hypokalemia-replete
#Low blood sugars-resumed diet,will monitor for now
#Diarrhea-improving,C.diff negative toxin
thostatic hypotension continue midodrine-on hold -blood pressures look good
#Diabetes insulin-dependent continue NPH Accu-Chek sliding scale goal blood glucose 140-180 carb controlled diet
#Pulmonary nodules follow-up with PCP
#BPH continue finasteride and Flomax
Anticipated Discharge: 24 - 48 hours
Subjective/Interval History
-
Date of Service: September 18, 2024
Tolerating low residue diet well, oriented to name, place and person
Diarrhea improving
Objective Data
-
Labs:
Laboratory Results
09/18/24 09/18/24
03:31 04:15
WBC 6.6
Hgb 13.8
Hct 39.4
Plt Count 282
Sodium Cancelled 141
Potassium Cancelled 3.8
Chloride Cancelled 110 H
Carbon Dioxide Cancelled 24
BUN Cancelled 12
Creatinine Cancelled 0.9
Glucose Cancelled 61 L
Calcium Cancelled 8.6
Vital Signs:
Vital Signs
Temp Pulse Resp BP Pulse Ox
97.4 F 58 16 164/91 92
09/18/24 07:44 09/18/24 06:00 09/18/24 06:00 09/18/24 06:00 09/18/24 06:00
I&O
09/17/24 09/18/24 09/19/24
06:59 06:59 06:59
Intake Total 1560 / 1560 480 / 480
Balance 1560 / 1560 480 / 480
Review of Systems
-
All other systems: Reviewed and negative
Physical Exam
-
General: No Apparent Distress and Morbidly Obese
HEENT: Moist Mucous Membranes and Anicteric
Respiratory: Clear to Auscultation; Negative Wheezes, Rales or Rhonchi
Cardiac: Regular Rhythm and S1/S2
GI: Soft, Nontender and Normal Bowel Sounds
Musculoskeletal: No Clubbing and No Cyanosis
Skin: Warm, Dry and Other (Stage 1 pressure ulcer on sacrum)
Neuro: Awake and AO x 3
Psych: Calm
[2024-09-18] MEDS: KCL 40 MEQ PO (08:49)
[2024-09-18] MEDS: HUMULIN N KWIKPEN SC (09:17)
--- NOTE | 2024-09-18 09:49 | W.PN.GS2 ---
Today's Communication / Plan
-
-- Continue LRD
Assessment / Plan
-
Assessment: 88 yo M with an ileus likely secondary to underlying infectious versus neurologic issues
AFVSS
Clinically improving with multiple BMs over last 24hrs, still distended on exam but improved. Plan to continue LRD. VSE ordered for today by primary.
Plan:
-- Continue LRD
-- VSE per primary
Subjective Data
-
Date of Service: September 18, 2024
No complaints. No nausea or emesis. Passing flatus and multiple loose stools.
Objective Data
-
Intake and Output
09/17/24 09/18/24 09/19/24
06:59 06:59 06:59
Intake Total 1560 / 1560 480 / 480
Balance 1560 / 1560 480 / 480
Intake:
Oral fluids 1560 / 1560 480 / 480
Other:
Number of approximated MODERATE 1
amounts of urine
How many times incontinent 1 6
SATURATED amount urine
Vital Signs
Temp Pulse Resp BP Pulse Ox
97.4 F 68 17 120/98 95
09/18/24 07:44 09/18/24 08:00 09/18/24 08:00 09/18/24 08:00 09/18/24 08:00
Lab Results
09/18/24 03:31
09/18/24 04:15
Calcium 8.6 mg/dl (8.4-10.2) 09/18/24 04:15
Magnesium 2.1 mg/dl (1.6-2.3) 09/18/24 04:15
Total Bilirubin 1.2 mg/dl (0.2-1.3) 09/15/24 04:51
AST 14 U/L (17-59) L 09/15/24 04:51
ALT 10 U/L (0-50) 09/15/24 04:51
Alkaline Phosphatase 65 U/L (38-126) 09/15/24 04:51
Total Protein 6.1 g/dl (6.3-8.2) L 09/15/24 04:51
Albumin 3.4 g/dl (3.5-5.0) L 09/15/24 04:51
Physical Exam
-
Gen: NAD
Abd: soft, NT, distended, obese, non-peritoneal (overall improved with less distension)
--- NOTE | 2024-09-18 11:30 | CM ---
CM reviewed pt with Dr Lockwood - pt ready for discharge.
Bedside meeting with pt and spouse - in agreement with SNF placement at [facility] today.
IMM verbally reviewed and copy provided.
Update to [facility] Admissions, Covid order placed per SNF request.
Transport forms on chart
Spouse will bring CPAP to SNF.
SNF Admissions obtained [facility] auth.
Discharge plan: [facility] via ambulance
[2024-09-18 11:58] LABS: Glucose - Point of Care 171 mg/dl (70-99)
[2024-09-18 12:10] LABS: COVID-19 Antigen Negative (Negative)
[2024-09-18] MEDS: NOVOLOG FLEXPEN-LOW RESISTANCE 1 UNITS SC (12:20)
--- NOTE | 2024-09-18 12:22 | W.DCSUMMARY ---
Discharge Summary
Discharge Data
Date of Admission: 09/09/24
Date of Discharge: 09/18/24
-
Pending Results: No
Hospital Course
Discharging Physician :
Jermaine Lincoln MD
Disposition :
SNF
Primary care physician :
Stacie Barker
Principal Discharge diagnosis :
Adynamic ileus secondary to infectious versus neurological issues/UTI?/Toxic metabolic encephalopathy
Chronic Discharge diagnosis :
Type 2 diabetes mellitus, essential hypertension, morbid obesity, pulmonary nodules, TIA, CVA, hypercholesterolemia, obstructive sleep apnea,BPH, paroxysmal atrial fibrillation, orthostatic hypotension
Hospital Course :
Presented with altered mental status, admitted for workup of toxic metabolic and encephalopathy UTI versus neurological issues
# Questionable UTI
Patient is a 88-year-old male, past medical history significant for recurrent UTIs, has been on multiple antibiotics including ciprofloxacin, Bactrim, nitrofurantoin, fosfomycin and as per his he is very confused and disoriented when he has a
UTI. He is diabetic and has history of BPH. Not on any SGLT2 inhibitors. Had been on antibiotics prior to coming to the hospital, hence urine analysis questionable. Urine culture did not show any growth so ID discontinued antibiotics and
recommended against suppressive antibiotic therapy.
Need to have thorough evaluation, should not be on antibiotic therapy without proper evaluation
# Possible recrudescence of prior stroke (2019)
He also has past history of having a CVA in 2019 with moderate left carotid stenosis and A-fib. He was evaluated with head CT scan/CTA head neck images and reported to have left carotid stenosis 60% and right carotid stenosis 45%. Brain MRI 04/2019
images reviewed several small infarcts in left MCA territory. As per neuro, this did not seem to be a new stroke but the risk of stroke from left carotid stenosis maintained high with overall poor health and dementia. Patient would not want to
have surgery to lower the stroke risk at this time.
#Adynamic ileus
On the second day of admission, patient started to vomit and had abdominal distention
Obstruction series consistent with adynamic ileus, conservative measures started with bowel rest and IV fluids
Surgery remain on board-serial abdominal x-rays to monitor the progress-advanced diet
Patient moving his bowels normally, tolerating diet and had soft nontender abdomen on discharge
#Delirium/confusion
Possibly exacerbated by hospitalization and history of stroke
Discontinued Lyrica during the hospital stay, suggested Zyprexa which the patient refused
Patient oriented to name place and time at the time of discharge and no further agitation
Patient feels that the disturbed sleep was the main reason and would feel better once he goes back home
Important imaging findings :
Abdominal x-ray 09/15/2024
FINDINGS:
Bowel: Some air is seen in nondilated large and small bowel, bowel gas pattern nonspecific. Intestinal bowel gas pattern is nonobstructive.
Soft tissues: No pathologic soft tissue calcification is seen.
Osseous structures: No acute osseous abnormalities.
IMPRESSION:
Nonspecific, nonobstructive intestinal bowel gas pattern.
Abdominal x-ray09/10/2024
IMPRESSION: Subtle increased linear densities within the lower lungs, probably mild linear scarring. Cardiac silhouette size appears top normal with no evidence for pulmonary edema or pleural effusion.
Moderate distention of the stomach with air-fluid level on decubitus view. Mild to moderate gaseous distention of the colon, including air-fluid level on decubitus view. This finding suggests a degree of colonic stasis/adynamic ileus.
No evidence of free intraperitoneal air.
Brain MRI 09/10/2024
IMPRESSION:
1. No MRI evidence for acute infarct.
2. 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
3. Tiny chronic ischemic infarct in the superior left cerebellar hemisphere.
4. Minimal periventricular white matter leukoaraiosis.
5. Moderate diffuse cerebral and cerebellar volume loss.
6. 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
Head and neck CTA 09/09/2024
IMPRESSION:
No CTA evidence for high-grade stenosis or occlusion of the arterial vasculature in the head or neck. Bilateral carotid bifurcation atherosclerosis contributing to bilateral proximal internal carotid artery stenosis (60% on the left and 45% on the
right). Correlation with a cerebrovascular ultrasound could be considered on a nonemergent basis.
Head CT 09/09/2024
IMPRESSION:
No acute intracranial abnormality.
Discharge Plan
-
Patient Disposition: Assisted/SNF
Discharge Diagnosis/Procedures: Adynamic ileus secondary to infectious versus neurological issues/UTI?/Toxic metabolic encephalopathy
Condition: Fair
Diet: Low Cholesterol
Additional Diets: Continue low residue diet for few days before resume regular cholesterol lowering diet
Activity: As tolerated
Driving Restrictions: As prior to admission
Bathing Restrictions: OK to Shower
Other Services: PT and OT
Referrals:
Stacie Barker MD [Family Provider] - in less than 1 week
Prescriptions:
New
sucralfate 100 mg/mL Suspension
10 ml PO ACHS 10 Days Qty: 400 0RF
miconazole nitrate [Miconazorb AF] 2 % Powder
1 applic topical BID 10 Days Qty: 85 0RF
alum-mag hydroxide-simeth [Mag-Al Plus] 200-200-20 mg/5 mL Suspension
30 ml PO QIDPRN PRN (Reason: gerd) 10 Days Qty: 3000 0RF
Continued
tamsulosin 0.4 MG capsule
0.4 mg PO QPM
finasteride 5 MG tablet
5 mg PO QPM
Eliquis 5 MG tablet
5 mg PO BID Qty: 60 0RF
Januvia 100 MG tablet
100 mg PO DAILY
PreserVision AREDS 1 CAP capsule
1 cap PO BID
Novolin N NPH U-100 Insulin 1,000 UNITS/10 ML suspension
See Rx Instructions .ROUTE .COMPLEX
Patient Comments:
Rx Instructions:
60u AM, 50u PM
guaifenesin [Mucinex] 600 mg Tablet Extended Release 12hr
600 mg PO Q12H
pregabalin [Lyrica] 25 mg Capsule
25 mg PO DAILY
acetaminophen 500 mg Tablet
1,000 mg PO BID
ascorbic acid (vitamin C) 500 mg Tablet,Chewable
500 mg PO BID
Visbiome 112.5 billion cell Capsule
1 cap PO DAILY
cranberry 450 mg Tablet
450 mg PO DAILY
methenamine hippurate 1 gram tablet
1 g PO BID
Held
midodrine 5 mg tablet
5 mg PO DAILY
Hold Instructions: Monitor blood pressure and follow up with PCP Patient does not need it at this time
Discontinued
nitrofurantoin macrocrystal 100 mg capsule
100 mg PO HS
Discharge Orders:
Discharge Patient (As Directed); Ordered 09/18/24
Ordered By: Romel Foy
Discharge Date and Time
Print Language: YI
== END 2024-09-18 14:41 | DRG 92 ==
LOC: IMU 17:15
PROVIDERS: Student in an Organized Health Care Education/Training Program; ADMITTING PHYSICIAN Hospitalist; ATTENDING PHYSICIAN Internal Medicine; CONSULT PHYSICIAN Internal Medicine Infectious Disease; CONSULT PHYSICIAN Psychiatry & Neurology Clinical Neurophysiology; CONSULT PHYSICIAN Surgery; EMERGENCY PHYSICIAN Emergency Medicine; FAMILY PHYSICIAN Internal Medicine Geriatric Medicine
DX: G92.8 Other toxic encephalopathy (principal); F05 Delirium due to known physiological condition; R47.01 Aphasia; N39.0 Urinary tract infection, site not specified; K56.0 Paralytic ileus; I10 Essential (primary) hypertension; G47.33 Obstructive sleep apnea (adult) (pediatric); E11.9 Type 2 diabetes mellitus without complications; I45.10 Unspecified right bundle-branch block; E78.00 Pure hypercholesterolemia, unspecified; G89.29 Other chronic pain; H35.30 Unspecified macular degeneration; N40.0 Benign prostatic hyperplasia without lower urinary tract symptoms; E66.9 Obesity, unspecified; R91.8 Other nonspecific abnormal finding of lung field; R26.89 Other abnormalities of gait and mobility; I95.1 Orthostatic hypotension; I65.23 Occlusion and stenosis of bilateral carotid arteries; G31.9 Degenerative disease of nervous system, unspecified; I48.0 Paroxysmal atrial fibrillation; K21.9 Gastro-esophageal reflux disease without esophagitis; J32.0 Chronic maxillary sinusitis; E87.6 Hypokalemia; R19.7 Diarrhea, unspecified; J01.00 Acute maxillary sinusitis, unspecified; Z66 Do not resuscitate; Z68.33 Body mass index [BMI] 33.0-33.9, adult; Z87.440 Personal history of urinary (tract) infections; Z79.01 Long term (current) use of anticoagulants; Z79.4 Long term (current) use of insulin; Z98.1 Arthrodesis status; Z11.52 Encounter for screening for COVID-19; Z88.1 Allergy status to other antibiotic agents; Z88.5 Allergy status to narcotic agent; Z88.0 Allergy status to penicillin; Z88.8 Allergy status to other drugs, medicaments and biological substances; Z91.018 Allergy to other foods; Z91.048 Other nonmedicinal substance allergy status; Z86.73 Personal history of transient ischemic attack (TIA), and cerebral infarction without residual deficits
CPT/HCPCS: 0042T; 51702; 70450; 70496; 70498; 70551; 71045; 74018; 74022; 80048; 80053; 81003; 81015; 82962; 83036; 83690; 83735; 83880; 85025; 85027; 85610; 85730; 87040; 87086; 87324; 87449; 87811; 92610; 93005; 97163; 97167; 97530; 97535; 99285; J7030; Q9967

== ENCOUNTER 2024-09-26 16:41 | Inpatient (IN) | payer OTHER, SELFPAY ==
[2024-09-26] VITALS (8 sets, daily range): BP systolic 93–177; BP diastolic 60–101
[2024-09-26 14:55] LABS: Urine Albumin 2+ (Neg - Trace); Urine Bilirubin Negative (Negative); Urine Character Clear (Clear); Urine Color Yellow; Urine Glucose Negative (Negative); Urine Ketone Negative (Negative); Urine Leukocyte 3+ (Negative); Urine Nitrite Negative (Negative); Urine Occult Blood 4+ (Negative); Urine Urobilinogen Negative (Neg - 1+)
[2024-09-26 14:56] LABS: % Basophils 0.2 % (0-2); % Eosinophils 2.2 % (0-6); % Immature Granulocytes 0.5 % (0-0.5); % Lymphocytes 10.6 % (20.5-51.1); % Neutrophils 79.5 % (42.2-75.2); Absolute Eosinophils 0.3 10^3/uL (0-0.7); Absolute Immature Granulocytes 0.1 10^3/uL (0-0.05); Absolute Lymphocytes 1.3 10^3/uL (1.2-3.4); Absolute Monocytes 0.9 10^3/uL (0.1-0.6); Absolute Neutrophils 9.8 10^3/uL (1.4-6.5); Hematocrit 40.4 % (39.0-52.0); Hemoglobin 13.6 g/dL (13.0-18.0); Mean Corp Hgb Conc. 33.7 g/dL (33.0-37.0); Mean Corpuscular Hgb 32.1 pg (27.0-31.0); Mean Corpuscular Volume 95.3 fL (80.0-94.0); Mean Platelet Volume 9.9 fL (7.4-10.4); Nucleated Red Blood Cells % 0 % (-); Platelet Count 240 10^3/uL (130-400); Red Blood Cell Count 4.24 10^6/uL (4.70-6.10); Red Cell Dist. Width 12.8 % (11.5-14.5); White Blood Cell Count 12.4 10^3/uL (4.8-10.8)
[2024-09-26 15:07] LABS: Urine Squamous Cell 0-2 /LPF (Few)
[2024-09-26 15:08] LABS: Urine Bacteria Few (Negative); Urine Red Blood Cell 50-60 /HPF (0-2)
[2024-09-26 15:09] LABS: Urine White Cell >100 /HPF (0-5)
[2024-09-26 15:17] LABS: ALT (SGPT) 21 U/L (0-50); AST (SGOT) 21 U/L (17-59); Albumin 3.6 g/dl (3.5-5.0); Alkaline Phosphatase 98 U/L (38-126); Blood Urea Nitrogen 107 mg/dl (9-20); Calcium 8.3 mg/dl (8.4-10.2); Carbon Dioxide 17 mmol/L (22-30); Chloride 103 mmol/L (98-107); Glucose 212 mg/dl (70-99); Potassium 5.5 mmol/L (3.5-5.1); Sodium 136 mmol/L (135-145); Total Bilirubin 0.7 mg/dl (0.2-1.3); Total Protein 6.5 g/dl (6.3-8.2); eGFR 5.36
[2024-09-26 15:27] LABS: COVID-19 Antigen Negative (Negative)
--- NOTE | 2024-09-26 15:35 | ED.GENMED ---
History of Present Illness
<LINDA Babcock Jr. Last Filed: 09/28/24 06:31>
General
Chief Complaint: Weakness
Source: patient
Exam Limitations: none
Time Seen by Provider: 09/26/24 15:16
Nursing documentation reviewed up to this point in time: agreed with
History of Present Illness
History of Present Illness:
88-year-old male past medical history of A-fib currently on Eliquis, hypertension, diabetes, previous stroke presenting to the emergency department with concerns of generalized weakness and bodyaches generalized weakness worsening over the past few
days and bodyaches today denies any specific symptoms no fevers no vomiting he denies any changes in bowel movements or urination. Was recently admitted here a week ago for adynamic ileus and confusion that did improve during his hospital stay.
Past History
<LINDA Babcock Jr. Last Filed: 09/28/24 06:31>
Past History
ED Past Medical History: Arrthythmia (Atrial fibrillation), CVA, HTN, Hypercholesterolemia, IDDM, NIDDM and Other (GUILLERMO on CPAP, obesity, Chronic LBP w/ gait dysfunction; BPH)
ED Past Surgical History: Cardiac (Unremarkable cardiac catheterization April 2017.), Orthopedic (Lumbar laminectomy ( L3-L5)2012) and Other (Strabismus repair)
Patient has exhibited threatening behavior?: No
Social History
Tobacco: Non-smoker
Alcohol: None
Drug: None
Personal:
Living: with family
Employment: Retired
Family History
Family History: Hypertension
Review of Systems
<LINDA Babcock Jr. Last Filed: 09/28/24 06:31>
Review of Systems
Allergies reviewed?: Yes
All Other Systems: ROS reviewed and negative except as documented in HPI and ROS
Phy Exam
<LINDA Babcock Jr. Last Filed: 09/28/24 06:31>
Physical Exam
Physical Exam:
GENERAL: Alert , in no apparent distress
EYE: pupils equal and reactive
NECK: Supple, no significant adenopathy.
ENT: o/p clr, mmm.
CARDIAC: Regular rate and rhythm .
LUNGS: Clear breath sounds bilaterally, no acute respiratory distress, no wheezes/rales/rhonchi
ABDOMEN: Vaguely distended abdomen without specific tenderness to palpation but did seem somewhat firm on exam. No overlying skin changes.
NEUROLOGICAL: Alert and oriented, no focal neuro deficits
SKIN: Warm and dry, skin intact.
MUSCULOSKELETAL: No edema, well perfused.
PSYCH: Normal and appropriate interaction.
Course
<Lawson Finn Jr., LINDA - Last Filed: 09/28/24 06:31>
Orders/Labs/Results
Orders:
Orders
09/26/24 Breakfast
1800 calorie (15 carb) Diabetic
At Your Request: Full Participation
Does patient need a safe tray?: No
09/26/24 14:27
Electrocardiogram (*1) Urgent
Reason for Study: Fatigue / Weakness
EKG- Treatment ONCE
09/26/24 14:36
Body Fluid for Eosinophils Urgent
Fluid Source: Urine
Date Specimen was Collected: 09/26/24
Time Specimen was Collected: 14:31
Comment: ADD ON
COVID-19 Antigen Urgent
Source: Nasal Swab
Complete Blood Count/With Diff Urgent
Comprehensive Metabolic Panel Urgent
Urinalysis Reflex To Culture Urgent
Date Specimen was Collected: 09/26/24
Time Specimen was Collected: 14:31
Urine Microscopic Reflex Cult Urgent
Influenza A+B Rapid Molecular Urgent
DARYA Source: Nasal Swab
Specimen Description:
Urine Culture Urgent
DARYA Source: U
Specimen Description:
Date Specimen was Collected: 09/26/24
Time Specimen was Collected: 14:31
09/26/24 14:50
Straight cath- Treatment ONCE
09/26/24 15:28
CT Abd/pel Without Iv Or Oral Urgent
Comment:
Reason For Exam: abd pain, renal failure
09/26/24 15:32
CefTRIAXone [Rocephin] 2,000 mg IV NOW STA
09/26/24 15:42
Add On- LAB Urgent
Tests Added?: Eosinophils-Body Fluids-- urine
09/26/24 16:28
Admit/Transfer Patient As Directed
Co-Sign Provider:
Level of Care: Inpatient admission
Assign to:: Telemetry
Physician / Group: valentina
Diagnosis: acute kidney injury
Reason for Telemetry: Arrhythmia
Date to Stop Telemetry: 09/29/24
Time to Stop Telemetry: 11:00
Reason for Hospitalization: RAVEN
Expected length of stay greater than two midnights?: Yes
ELOS- Estimated Length of Stay in days: 3
I certify the patient meets the requirements for IP care: Yes
PRN Pain Medication Management As Directed
May give lesser potent ordered pain med per pt: Yes
preference::
Protocol:: Medication orders for pain may be administered in a
manner that supports deferring to patient preference
when the pt is:
- Requesting an ordered lesser potent pain medication.
Least to most potent pain medications are defined
as: acetaminophen < NSAID < tramadol < opioids
(morphine, oxycodone, hydromorphone).
- Requesting a lesser dose of the same medication IF
ORDERED.
- Requesting a less intrusive route of administration
if both routes are prescribed by the provider (PO <
IV).
09/26/24 16:30
Code Status As Directed
Resuscitation Status: Full Code
09/26/24 17:43
Acetaminophen [Tylenol] 650 mg PO Q4HPRN PRN
Dextrose 50%-Water [Dextrose 50% Syringe] 12.5 grams IV [id number] PRN
Glucagon [GlucaGen] 1 mg IM PRN PRN
Insulin Aspart Corrective Low [Novolog Flexpen-Low Resistance] See Protocol SC AC
Polyethylene Glycol Powder [Miralax] 17 grams PO DAILYPRN PRN
09/26/24 17:43
NEPHROLOGY CONSULT Routine
Consulting Provider: Ezekiel Rebolledo
Was physician already notified: Yes
Activity As Directed
Activity Level: As Tolerated
Bedside Glucose Monitoring As Directed
Frequency: AC&HS
Additional Instructions:: Change to q6h if pt on TPN, tube feeding or not eating
Vital Signs As Directed
Frequency: Per unit guidelines
09/26/24 18:00
Finasteride [Proscar] 5 mg PO QPM
Tamsulosin [Flomax] 0.4 mg PO QPM
09/26/24 18:22
Docusate W/Senna [Senokot-S] 1 tablet PO BIDPRN PRN
09/26/24 18:23
Bisacodyl [Dulcolax] 10 mg RECTAL [id number] PRN
09/26/24 20:00
Apixaban [Eliquis] 5 mg PO BID
Guaifenesin [Mucinex] 600 mg PO Q12H
09/27/24 06:26
Basic Metabolic Panel IN AM
Complete Blood Count/No Diff IN AM
09/27/24 08:00
Midodrine [ProAmatine] 5 mg PO DAILY
Vit C/Vit E/Lutein/Min/Hamill-3 [Ocuvite Softgel] 1 cap PO DAILY
09/27/24 16:00
CefTRIAXone [Rocephin] 1,000 mg IV Q24H
09/28/24 06:00
Basic Metabolic Panel IN AM
Complete Blood Count/No Diff IN AM
09/29/24 06:00
Basic Metabolic Panel IN AM
Complete Blood Count/No Diff IN AM
09/29/24 11:00
DC Protocol for Telemetry ONCE
09/30/24 06:00
Complete Blood Count/No Diff IN AM
Abnormal Lab Results
09/26/24
14:36
WBC 12.4 H 10^3/uL
(4.8-10.8)
RBC 4.24 L 10^6/uL
(4.70-6.10)
MCV 95.3 H fL
(80.0-94.0)
MCH 32.1 H pg
(27.0-31.0)
Abs Immat Gran (auto) 0.1 H 10^3/uL
(0-0.05)
Absolute Neuts (auto) 9.8 H 10^3/uL
(1.4-6.5)
Absolute Monos (auto) 0.9 H 10^3/uL
(0.1-0.6)
Neutrophils % 79.5 H %
(42.2-75.2)
Lymphocytes % 10.6 L %
(20.5-51.1)
Potassium 5.5 H mmol/L
(3.5-5.1)
Carbon Dioxide 17 L mmol/L
(22-30)
BUN 107 H* mg/dl
(9-20)
Creatinine 8.8 H* mg/dL
(0.7-1.3)
Glucose 212 H mg/dl
(70-99)
Calcium 8.3 L mg/dl
(8.4-10.2)
Ur Occult Blood Reflex 4+ A
(Negative)
Leukocyte Esterase Rfl 3+ A
(Negative)
Urine RBC 50-60 A /HPF
(0-2)
Urine WBC (Reflex) >100 A /HPF
(0-5)
Urine Bacteria (Reflex) Few A
(Negative)
Urine Albumin (Reflex) 2+ A
(Neg - Trace)
09/26/24 14:36
09/26/24 14:36
Vital Signs
Initial and Last Documented VS:
Initial Vital Signs
Pulse Resp BP Pulse Ox
88 25 152/84 96
09/26/24 14:27 09/26/24 14:27 09/26/24 14:27 09/26/24 14:27
Last Documented Vital Signs
Temp Pulse Resp BP Pulse Ox
97.6 F 82 18 134/72 97
09/28/24 03:25 09/28/24 03:25 09/28/24 03:25 09/28/24 03:25 09/28/24 03:25
<Darnell Neil, DO - Last Filed: 09/26/24 15:38>
Orders/Labs/Results
Orders:
Orders
09/26/24 Breakfast
1800 calorie (15 carb) Diabetic
At Your Request: Full Participation
Does patient need a safe tray?: No
09/26/24 14:27
Electrocardiogram (*1) Urgent
Reason for Study: Fatigue / Weakness
EKG- Treatment ONCE
09/26/24 14:36
Body Fluid for Eosinophils Urgent
Fluid Source: Urine
Date Specimen was Collected: 09/26/24
Time Specimen was Collected: 14:31
Comment: ADD ON
COVID-19 Antigen Urgent
Source: Nasal Swab
Complete Blood Count/With Diff Urgent
Comprehensive Metabolic Panel Urgent
Urinalysis Reflex To Culture Urgent
Date Specimen was Collected: 09/26/24
Time Specimen was Collected: 14:31
Urine Microscopic Reflex Cult Urgent
Influenza A+B Rapid Molecular Urgent
DARYA Source: Nasal Swab
Specimen Description:
Urine Culture Urgent
DARYA Source: U
Specimen Description:
Date Specimen was Collected: 09/26/24
Time Specimen was Collected: 14:31
09/26/24 14:50
Straight cath- Treatment ONCE
09/26/24 15:28
CT Abd/pel Without Iv Or Oral Urgent
Comment:
Reason For Exam: abd pain, renal failure
09/26/24 15:32
CefTRIAXone [Rocephin] 2,000 mg IV NOW STA
09/26/24 15:42
Add On- LAB Urgent
Tests Added?: Eosinophils-Body Fluids-- urine
09/26/24 16:28
Admit/Transfer Patient As Directed
Co-Sign Provider:
Level of Care: Inpatient admission
Assign to:: Telemetry
Physician / Group: valentina
Diagnosis: acute kidney injury
Reason for Telemetry: Arrhythmia
Date to Stop Telemetry: 09/29/24
Time to Stop Telemetry: 11:00
Reason for Hospitalization: RAVEN
Expected length of stay greater than two midnights?: Yes
ELOS- Estimated Length of Stay in days: 3
I certify the patient meets the requirements for IP care: Yes
PRN Pain Medication Management As Directed
May give lesser potent ordered pain med per pt: Yes
preference::
Protocol:: Medication orders for pain may be administered in a
manner that supports deferring to patient preference
when the pt is:
- Requesting an ordered lesser potent pain medication.
Least to most potent pain medications are defined
as: acetaminophen < NSAID < tramadol < opioids
(morphine, oxycodone, hydromorphone).
- Requesting a lesser dose of the same medication IF
ORDERED.
- Requesting a less intrusive route of administration
if both routes are prescribed by the provider (PO <
IV).
09/26/24 16:30
Code Status As Directed
Resuscitation Status: Full Code
09/26/24 17:43
Acetaminophen [Tylenol] 650 mg PO Q4HPRN PRN
Dextrose 50%-Water [Dextrose 50% Syringe] 12.5 grams IV [id number] PRN
Glucagon [GlucaGen] 1 mg IM PRN PRN
Insulin Aspart Corrective Low [Novolog Flexpen-Low Resistance] See Protocol SC AC
Polyethylene Glycol Powder [Miralax] 17 grams PO DAILYPRN PRN
09/26/24 17:43
NEPHROLOGY CONSULT Routine
Consulting Provider: Ezekiel Rebolledo
Was physician already notified: Yes
Activity As Directed
Activity Level: As Tolerated
Bedside Glucose Monitoring As Directed
Frequency: AC&HS
Additional Instructions:: Change to q6h if pt on TPN, tube feeding or not eating
Vital Signs As Directed
Frequency: Per unit guidelines
09/26/24 18:00
Finasteride [Proscar] 5 mg PO QPM
Tamsulosin [Flomax] 0.4 mg PO QPM
09/26/24 18:22
Docusate W/Senna [Senokot-S] 1 tablet PO BIDPRN PRN
09/26/24 18:23
Bisacodyl [Dulcolax] 10 mg RECTAL [id number] PRN
09/26/24 20:00
Apixaban [Eliquis] 5 mg PO BID
Guaifenesin [Mucinex] 600 mg PO Q12H
09/27/24 06:26
Basic Metabolic Panel IN AM
Complete Blood Count/No Diff IN AM
09/27/24 08:00
Midodrine [ProAmatine] 5 mg PO DAILY
Vit C/Vit E/Lutein/Min/Hamill-3 [Ocuvite Softgel] 1 cap PO DAILY
09/27/24 16:00
CefTRIAXone [Rocephin] 1,000 mg IV Q24H
09/28/24 06:00
Basic Metabolic Panel IN AM
Complete Blood Count/No Diff IN AM
09/29/24 06:00
Basic Metabolic Panel IN AM
Complete Blood Count/No Diff IN AM
09/29/24 11:00
DC Protocol for Telemetry ONCE
09/30/24 06:00
Complete Blood Count/No Diff IN AM
Abnormal Lab Results
09/26/24
14:36
WBC 12.4 H 10^3/uL
(4.8-10.8)
RBC 4.24 L 10^6/uL
(4.70-6.10)
MCV 95.3 H fL
(80.0-94.0)
MCH 32.1 H pg
(27.0-31.0)
Abs Immat Gran (auto) 0.1 H 10^3/uL
(0-0.05)
Absolute Neuts (auto) 9.8 H 10^3/uL
(1.4-6.5)
Absolute Monos (auto) 0.9 H 10^3/uL
(0.1-0.6)
Neutrophils % 79.5 H %
(42.2-75.2)
Lymphocytes % 10.6 L %
(20.5-51.1)
Potassium 5.5 H mmol/L
(3.5-5.1)
Carbon Dioxide 17 L mmol/L
(22-30)
BUN 107 H* mg/dl
(9-20)
Creatinine 8.8 H* mg/dL
(0.7-1.3)
Glucose 212 H mg/dl
(70-99)
Calcium 8.3 L mg/dl
(8.4-10.2)
Ur Occult Blood Reflex 4+ A
(Negative)
Leukocyte Esterase Rfl 3+ A
(Negative)
Urine RBC 50-60 A /HPF
(0-2)
Urine WBC (Reflex) >100 A /HPF
(0-5)
Urine Bacteria (Reflex) Few A
(Negative)
Urine Albumin (Reflex) 2+ A
(Neg - Trace)
09/26/24 14:36
09/26/24 14:36
Vital Signs
Initial and Last Documented VS:
Initial Vital Signs
Pulse Resp BP Pulse Ox
88 25 152/84 96
09/26/24 14:27 09/26/24 14:27 09/26/24 14:27 09/26/24 14:27
Last Documented Vital Signs
Temp Pulse Resp BP Pulse Ox
97.6 F 82 18 134/72 97
09/28/24 03:25 09/28/24 03:25 09/28/24 03:25 09/28/24 03:25 09/28/24 03:25
<Lawson Finn Jr., PA-C - Last Filed: 09/28/24 06:31>
MDM/Problems Addressed
MDM/Problems Addressed:
88-year-old male presenting to the emergency department today with concerns of generalized weakness fatigue and diffuse bodyaches worsening over the past few days. On arrival vital signs are generally normal labs showing significant elevation of
creatinine and BUN from baseline that was normal levels 1 week ago. Also urinalysis potentially consistent with UTI which was not present 1 week ago as well. Case was immediately discussed with nephrology who came to see the patient. Otherwise
vital signs were normal here. Patient started on IV antibiotics for UTI. Otherwise CT scan was ordered for evaluation of potential obstruction.
<Lawson Finn Jr., PA-C - Last Filed: 09/28/24 06:31>
*Critical Care Note
Total Time (30-74mins, 75-104mins- exclusive of procedures): Not Applicable (Critical care statement: A total of 40 minutes of critical care time was provided for this patient. This includes management of unstable vital signs, evaluation of the
patient at bedside, reviewing the patient's pertinent medical records, discussion with consultants, review of old EKGs and review of)
ED Attending Note
<Lawson Finn Jr., PA-C - Last Filed: 09/28/24 06:31>
-
Portions of this chart may have been created with voice recognition software.� Occasional wrong word or��sound alike� substitutions may have occurred due to the inherent limitations of voice recognition software.
<Darnell Neil DO - Last Filed: 09/26/24 15:38>
ED Attending Note
Patient seen and examined by attending physician: Yes
I performed the substantive portion of visit, reviewed & personally made and approve the management plan that is documented in note by myself or GREGORIA.: Yes
ED Attending Note:
Seen with BERNABE examined independently 88-year-old male send recurrent UTIs, admitted recently for 9 days, has been off antibiotics few days of lethargy now with diffuse body aches acute renal failure with hematuria has some swelling of his right lower
abdomen on exam, plan will be IV fluids cultures antibiotics CT abdomen pelvis to rule out obstruction mass etc. will require admission
Discharge Plan
Departure
Patient Disposition: Admit
Date of Disposition: 09/26/24
Time of Disposition: 16:17
Admit to: IMU
Admit to doctor: Valentina
Presentation/result/management discussed w/ accepting MD/DO: Hospitalist
Patient with high blood pressure during this ER visit?: No
Condition: Fair
Covid-19: Not Applicable
Discharge Problem:
Acute renal failure, Acute UTI
Interventions
Interventions:
*Risk Screen - Suicide Last Done: 09/26/24 14:28
*General Assessment Last Done: 09/26/24 14:28
*Neglect/Abuse Screening Last Done: 09/26/24 14:50
*ED- Fall Risk Assessment Last Done: 09/26/24 14:49
*ED COVID-19 Vaccine History Last Done: 09/26/24 14:49
*Nursing Disposition Last Done: 09/26/24 17:37
ED- Cardiac Assessment Last Done: 09/26/24 14:58
ED- Neurological Assessment Last Done: 09/26/24 14:58
ED- Pulmonary Assessment Last Done: 09/26/24 14:58
Discharge Date and Time
Discharge Date/Time: 09/26/24 17:38
[2024-09-26] MEDS: ROCEPHIN 2000 MG IV (15:58)
--- NOTE | 2024-09-26 16:23 | HPS.HSE ---
Family Physician
-
Family Physician: Stacie Barker
Chief Complaint
-
Generalized body ache
History of Present Illness
88-year-old male past medical history of A-fib currently on Eliquis, hypertension, diabetes, previous stroke, BPH presenting to the emergency department with concerns of generalized weakness and backaches for past 2 to 3 days. Patient complained of
headache. Denied dizziness and syncope. Patient denied fever, chills, cough, congestion. Patient denied chest pain or short of breath. Patient denied abdominal pain, nausea, vomiting, diarrhea. Patient stated dysuria.
Upon arrival he was noted to have a creatinine of 8.8. CT abdomen pelvis pending. Positive UA. Patient received ceftriaxone. Admitting for further management
Medical History
Past Medical History
Past Medical History: Reports Other
Additional Past Medical History:
A-fib, CVA, hypertension, hyperlipidemia, IDDM, possible sleep apnea, BPH
Past Surgical History: Reports Other
Additional Past Surgical History:
Lumbar laminectomy, strabismus repair
Social History
Tobacco: Non-smoker
Alcohol: None
Drug: None
Personal:
Living: Long Term
Family History
Family History: Not pertinent
Allergies / Home Medications
Allergies reflects when Allergies were last updated in [employer].
Home Medications with original date entered in [employer]
Allergy/Medication List:
Allergies
Allergy/AdvReac Type Severity Reaction Status Date / Time
adhesive tape Allergy Rash Verified 09/26/24 14:26
amoxicillin (From Augmentin) Allergy Nausea/DIAR Verified 09/26/24 14:26
MICHAEL
clavulanic acid (From Allergy Nausea/DIAR Verified 09/26/24 14:26
Augmentin) MICHAEL
metoprolol (From Toprol XL) Allergy Rash Verified 09/26/24 14:26
mushroom Allergy Shortness Verified 09/26/24 14:26
of Breath
pollen extracts Allergy Itching, Verified 09/26/24 14:26
sneezing -
seasonal
tramadol Allergy Unknown Verified 09/26/24 14:26
Home Medications
finasteride 5 mg tablet 5 mg PO QPM Urinary issue 04/21/11
tamsulosin 0.4 mg capsule 0.4 mg PO QPM Urinary issue 04/21/11
sitagliptin phosphate 100 mg tablet (Januvia) 100 mg PO DAILY Diabetes 08/08/20
vitamins A,C,W-ksmz-xrvrze 4,296 mcg-226 mg-90 mg capsule (PreserVision AREDS) 1 cap PO BID Supplement 08/08/20
guaifenesin 600 mg tablet, extended release 12 hr (Mucinex) 600 mg PO Q12H cough 03/03/24
Lactobac no.2-Bifidobac no.1-S. thermo 112.5 billion cell capsule (Visbiome) 1 cap PO DAILY Gastrointestinal Issue 09/09/24
acetaminophen 500 mg tablet 1,000 mg PO BID Pain 09/09/24
ascorbic acid (vitamin C) 500 mg chewable tablet 500 mg PO BID Supplement 09/09/24
cranberry fruit 450 mg tablet (cranberry) 450 mg PO DAILY Supplement 09/09/24
midodrine 5 mg tablet 5 mg PO DAILY Blood Pressure 09/09/24
Held on 09/18/24. Instructions: Monitor blood pressure and follow up with PCP Patient does not need it at this time
methenamine hippurate 1 gram tablet 1 g PO BID Infection 09/10/24
aluminum-mag hydroxide-simethicone 200 mg-200 mg-20 mg/5 mL oral susp (Mag-Al Plus) 30 ml PO QIDPRN PRN GERD 09/26/24
apixaban 5 mg tablet (Eliquis) 5 mg PO BID Blood Clot Prevention/Tx 09/26/24
insulin NPH isoph U-100 human 100 unit/mL (3 mL) subcutaneous pen (Humulin N NPH U-100 Insulin KwikPen) 50 unit SC DAILY@1700 Diabetes 09/26/24
insulin NPH isoph U-100 human 100 unit/mL (3 mL) subcutaneous pen (Humulin N NPH U-100 Insulin KwikPen) 60 unit SC DAILY@0800 Diabetes 09/26/24
miconazole nitrate 2 % topical powder (Miconazorb AF) 1 applic topical BID Hormonal Agent 09/26/24
Review of Systems
-
Constitutional: Reports No Symptoms
EENT: Reports No Symptoms
Respiratory: Reports No Symptoms
Cardiac: Reports No Symptoms
Abdomen/GI: Reports No Symptoms
: Reports Difficulty Voiding
Musculoskeletal: Reports No Symptoms
Skin: Reports No Symptoms
Neurological: Reports No Symptoms
Endocrine: Reports No Symptoms
Hematologic/Lymphatic: Reports No Symptoms
Psych: Reports No Symptoms
Physical Exam
Vital Signs
Vital Signs
Temp Pulse Resp BP Pulse Ox
98.7 F 88 24 152/84 96
09/26/24 14:50 09/26/24 14:45 09/26/24 14:45 09/26/24 14:28 09/26/24 14:58
Physical Exam
General: Well Developed, Well Nourished and No Apparent Distress
HEENT: NormoCephalic, Moist mucous membranes and Atraumatic
Respiratory: Clear
Cardiac: S1/S2 and Regular Rhythm; No Murmur or Rub
GI: Soft, Non Tender, Non Distended and Normal Bowel Sounds; No Organomegaly
Rectal: Deferred by Provider
Musculoskeletal: No Clubbing, No Cyanosis and No Edema
Skin: No Rash
Neuro: AO x 3 and Nonfocal/grossly intact
Psych: Calm
Laboratory Results
-
09/26/24 14:36
09/26/24 14:36
Laboratory Results
Total Bilirubin 0.7 mg/dl (0.2-1.3) 09/26/24 14:36
AST 21 U/L (17-59) 09/26/24 14:36
ALT 21 U/L (0-50) 09/26/24 14:36
Alkaline Phosphatase 98 U/L (38-126) 09/26/24 14:36
Data Reviewed
-
Lab Data: Labs Reviewed by me
Impression/Plan
-
# Acute renal failure/hyperkalemia secondary to urinary retention/ureteral dilation/renal calculi
- Creatinine 8.8, K5.5
-straight cathed in Er,continue Mackay
-normal saline continued
-BMP every 6 hours
- Nephrology consulted
-CT with the Mild hepatomegaly, markedly limited in evaluation without intravenous contrast.Moderate bilateral renal collecting system and ureteral dilatation, new in the interval since prior CT. Cannot exclude 1 mm calculus along the course of the
distal right ureter. Tiny bilateral nonobstructing renal calculi. Cannot exclude ureteral and renal collecting system dilatation based on vesicoureteral reflux. Consider Nuclear Renal scan with Lasix for more complete evaluation.Slight increase in
size in small hyperdense left renal cyst.Stable mild mesenteric panniculitis.
# Urinary tract infection
- WBCs 12.4
-ceftriaxone continued
#Atrial fibrillation paroxysmal
-EKG with NSR, right bundle branch block, left anterior fascicular block, bifascicular block.
- Eliquis held as per urology
#BPH
-finasteride, Flomax continued
# Type 2 diabetes
- NPH continued
- Sliding scale
- CHO diet
- Hold Januvia
# DVT prophylax
-On Eliquis
# CODE STATUS
- Full code
[2024-09-26 16:34] LABS: Body Fluid for Eosinophils No Eosinophils seen
--- NOTE | 2024-09-26 16:49 | W.PN.UPDATE ---
Update Note
Progress Note Update
I have independently examined the patient and agree with H&P written on the same date. In addition:
88yo M came with fatigue, found acute urinary retention, RAVEN and UTI
-RAVEN with hyperkalemia 2/2 Acute urinary retention most likely /2 UTI
LArge volume drained in ED with straight cath
Rocephin
Bcx
Ucx
IVF
Enriquez
Nephrology consult
CT abd/pelvis
BMP q12h
We have spent at least 79min admitting the patient
--- NOTE | 2024-09-26 16:49 | W.CON.NEPH ---
Consultation
-
Date/Time Consultation Requested: September 2024 at 4 PM
Date/Time Consultation Performed: September 26, 2024 at 4:30 PM
Requesting Provider: Dr. Neil
Performing Provider: Dr. Rebolledo
Reason for Consultation: Acute kidney injury
Medical History
-
Chief Complaint: Acute kidney injury
History of Present Illness:
88-year-old male past medical history of A-fib currently on Eliquis, hypertension, diabetes, previous stroke presenting to the emergency department with concerns of generalized weakness and bodyaches generalized weakness worsening over the past few
days and bodyaches . He currently is in rehab from that admission couple weeks ago for ileus which resolved on its own without intervention.
He has a normal creatinine at baseline and presents with a creatinine of 8.8.
Straight cath in the ER revealed 700 cc of urine output.
Hemodynamically stable
Past Medical History
A-fib currently on Eliquis, hypertension, diabetes, previous stroke history of ileus recurrent urine infections
Social History
Tobacco: Non-Smoker
Alcohol: None
Family History
Family History: Not Pertinent
Allergies / Home Medications
Allergy/AdvReac Type Severity Reaction Status Date / Time
adhesive tape Allergy Rash Verified 09/26/24 14:26
amoxicillin (From Augmentin) Allergy Nausea/DIAR Verified 09/26/24 14:26
MICHAEL
clavulanic acid (From Allergy Nausea/DIAR Verified 09/26/24 14:26
Augmentin) MICHAEL
metoprolol (From Toprol XL) Allergy Rash Verified 09/26/24 14:26
mushroom Allergy Shortness Verified 09/26/24 14:26
of Breath
pollen extracts Allergy Itching, Verified 09/26/24 14:26
sneezing -
seasonal
tramadol Allergy Unknown Verified 09/26/24 14:26
�Medication �Instructions �Recorded �Confirmed �Type
finasteride 5 mg tablet 5 mg PO QPM Urinary issue 04/21/11 09/26/24 History
tamsulosin 0.4 mg capsule 0.4 mg PO QPM Urinary issue 04/21/11 09/26/24 History
sitagliptin phosphate 100 mg 100 mg PO DAILY Diabetes 08/08/20 09/26/24 History
tablet (Januvia)
vitamins A,C,D-okzd-nblmsw 4,296 1 cap PO BID Supplement 08/08/20 09/26/24 History
mcg-226 mg-90 mg capsule
(PreserVision AREDS)
guaifenesin 600 mg tablet, 600 mg PO Q12H cough 03/03/24 09/26/24 History
extended release 12 hr (Mucinex)
Lactobac no.2-Bifidobac no.1-S. 1 cap PO DAILY Gastrointestinal 09/09/24 09/26/24 History
thermo 112.5 billion cell capsule Issue
(Visbiome)
acetaminophen 500 mg tablet 1,000 mg PO BID Pain 09/09/24 09/26/24 History
ascorbic acid (vitamin C) 500 mg 500 mg PO BID Supplement 09/09/24 09/26/24 History
chewable tablet
cranberry fruit 450 mg tablet 450 mg PO DAILY Supplement 09/09/24 09/26/24 History
(cranberry)
midodrine 5 mg tablet 5 mg PO DAILY Blood Pressure 09/09/24 09/26/24 History
Held on 09/18/24.
Instructions: Monitor blood
pressure and follow up with
PCP Patient does not need it
at this time
methenamine hippurate 1 gram tablet 1 g PO BID Infection 09/10/24 09/26/24 History
aluminum-mag hydroxide-simethicone 30 ml PO QIDPRN PRN GERD 09/26/24 09/26/24 History
200 mg-200 mg-20 mg/5 mL oral susp
(Mag-Al Plus)
apixaban 5 mg tablet (Eliquis) 5 mg PO BID Blood Clot 09/26/24 09/26/24 History
Prevention/Tx
insulin NPH isoph U-100 human 100 50 unit SC DAILY Diabetes 09/26/24 09/26/24 History
unit/mL (3 mL) subcutaneous pen
(Humulin N NPH U-100 Insulin
KwikPen)
insulin NPH isoph U-100 human 100 60 unit SC DAILY Diabetes 09/26/24 09/26/24 History
unit/mL (3 mL) subcutaneous pen
(Humulin N NPH U-100 Insulin
KwikPen)
miconazole nitrate 2 % topical 1 applic topical BID Hormonal Agent 09/26/24 09/26/24 History
powder (Miconazorb AF)
Review of Systems
-
Generalized weakness difficulty moving his extremities and his torso
All other systems: Negative unless noted
Physical Exam
Vital Signs
Vital Signs
Temp Pulse Resp BP Pulse Ox
98.7 F 88 24 152/84 96
09/26/24 14:50 09/26/24 14:45 09/26/24 14:45 09/26/24 14:28 09/26/24 14:58
Lab Results
WBC 12.4 10^3/uL (4.8-10.8) H 09/26/24 14:36
RBC 4.24 10^6/uL (4.70-6.10) L 09/26/24 14:36
Hgb 13.6 g/dL (13.0-18.0) 09/26/24 14:36
Hct 40.4 % (39.0-52.0) 09/26/24 14:36
Plt Count 240 10^3/uL (130-400) 09/26/24 14:36
Sodium 136 mmol/L (135-145) 09/26/24 14:36
Potassium 5.5 mmol/L (3.5-5.1) H 09/26/24 14:36
Chloride 103 mmol/L (98-107) 09/26/24 14:36
Carbon Dioxide 17 mmol/L (22-30) L 09/26/24 14:36
BUN 107 mg/dl (9-20) H* 09/26/24 14:36
Creatinine 8.8 mg/dL (0.7-1.3) H* 09/26/24 14:36
eGFR 5.36 09/26/24 14:36
Glucose 212 mg/dl (70-99) H 09/26/24 14:36
Calcium 8.3 mg/dl (8.4-10.2) L 09/26/24 14:36
Albumin 3.6 g/dl (3.5-5.0) 09/26/24 14:36
Physical Exam
General no acute distress
HEENT no cephalic atraumatic extraocular muscle intact no scleral icterus no JVD neck supple
lungs clear to auscultation bilateral
heart regular S1-S2 positive
abdomen soft nontender positive bowel sounds
extremities no edema pulses present bilateral
Neurologically nonfocal alert and oriented x 3/decreased strength diffusely with mild asterixis
Skin no lesions no abrasions no petechiae
Psych normal affect no bizarre behavior
Data Reviewed
-
Labs: Labs Reviewed by me, Discussed with Physician, Discussed with Patient and Discussed with Family
Assessment/Plan
-
88-year-old male past medical history of A-fib currently on Eliquis, hypertension, diabetes, previous stroke presenting to the emergency department with concerns of generalized weakness and bodyaches generalized weakness worsening over the past few
days and bodyaches . He currently is in rehab from that admission couple weeks ago for ileus which resolved on its own without intervention.
He has a normal creatinine at baseline and presents with a creatinine of 8.8.
Straight cath in the ER revealed 700 cc of urine output.
Hemodynamically stable
Impression.
Acute kidney injury with a creatinine of 8.8 discharged September 18 with a creatinine of 0.9.
Leukocytosis possible UTI./History of recurrent UTIs
Atrial fibrillation stable.
Hyperkalemia.
Acute metabolic acidosis.
Diabetes stable.
Plan.
CAT scan ordered and pending.
Antibiotics UTI coverage.
Normal saline ordered
Pending imaging will consider indwelling Mackay catheter.
No acute need for dialysis.
Discussed with his in detail

35 minutes in critical care time
[2024-09-26 18:24] LABS: Glucose - Point of Care 216 mg/dl (70-99)
[2024-09-26] MEDS: NSS 1000 IV (18:31)
--- NOTE | 2024-09-26 18:39 | PTCARENOTE ---
Patient arrived to [facility] at 1800 awake and alert. Mackay catheter inserted 16 F, 1400 cc milky urine out. IVF up NSS @125/hr via Right arm. at bedside, no distress at present.
[2024-09-26 19:31] LABS: Blood Urea Nitrogen 104 mg/dl (9-20); Calcium 8.8 mg/dl (8.4-10.2); Carbon Dioxide 20 mmol/L (22-30); Chloride 105 mmol/L (98-107); Glucose 192 mg/dl (70-99); Potassium 5.8 mmol/L (3.5-5.1); Sodium 139 mmol/L (135-145)
[2024-09-26] MEDS: FLOMAX 0.4 MG PO (19:36)
[2024-09-26] MEDS: MUCINEX 600 MG PO (19:36)
[2024-09-26] MEDS: PROSCAR 5 MG PO (19:36)
[2024-09-26] MEDS: TYLENOL 650 MG PO ×2 (19:37→23:50)
[2024-09-26] MEDS: NOVOLOG FLEXPEN-LOW RESISTANCE SC (21:01)
[2024-09-26 21:02] LABS: Glucose - Point of Care 187 mg/dl (70-99)
[2024-09-26] MEDS: LOKELMA 10 GRAM PO (21:53)
[2024-09-26] MEDS: HUMULIN N KWIKPEN SC (22:18)
[2024-09-27] VITALS (7 sets, daily range): BP systolic 158–179; BP diastolic 83–94
[2024-09-27 01:19] LABS: Blood Urea Nitrogen 94 mg/dl (9-20); Calcium 8.9 mg/dl (8.4-10.2); Carbon Dioxide 20 mmol/L (22-30); Chloride 110 mmol/L (98-107); Estimated Creatinine Clearance 12 ml/min; Glucose 154 mg/dl (70-99); Potassium 5.3 mmol/L (3.5-5.1); Sodium 142 mmol/L (135-145); eGFR 8.84
[2024-09-27] MEDS: NSS 1000 IV ×2 (02:00→08:22)
[2024-09-27 07:40] LABS: Hematocrit 39.5 % (39.0-52.0); Hemoglobin 13.3 g/dL (13.0-18.0); Mean Corp Hgb Conc. 33.7 g/dL (33.0-37.0); Mean Corpuscular Hgb 32.4 pg (27.0-31.0); Mean Corpuscular Volume 96.1 fL (80.0-94.0); Mean Platelet Volume 10.2 fL (7.4-10.4); Platelet Count 254 10^3/uL (130-400); Red Blood Cell Count 4.11 10^6/uL (4.70-6.10); Red Cell Dist. Width 12.7 % (11.5-14.5); White Blood Cell Count 9.2 10^3/uL (4.8-10.8)
[2024-09-27 07:54] LABS: Glucose - Point of Care 139 mg/dl (70-99)
[2024-09-27] MEDS: TYLENOL 650 MG PO ×2 (08:20→13:03)
[2024-09-27] MEDS: MUCINEX 600 MG PO ×2 (08:20→21:29)
[2024-09-27] MEDS: OCUVITE SOFTGEL 1 CAP PO (08:21)
[2024-09-27] MEDS: NOVOLOG FLEXPEN-LOW RESISTANCE SC (08:22)
[2024-09-27] MEDS: HUMULIN N KWIKPEN 20 UNITS SC ×2 (08:22→16:03)
[2024-09-27 08:34] LABS: Blood Urea Nitrogen 79 mg/dl (9-20); Calcium 8.4 mg/dl (8.4-10.2); Carbon Dioxide 19 mmol/L (22-30); Chloride 114 mmol/L (98-107); Estimated Creatinine Clearance 14 ml/min; Glucose 137 mg/dl (70-99); Potassium 5.1 mmol/L (3.5-5.1); Sodium 144 mmol/L (135-145); eGFR 11.09
--- NOTE | 2024-09-27 09:15 | CON.MD ---
Consultation - Medical
-
see dictated note
pt with long hx of partial retention/bph and recurrent UTI's
follows with dr singleton
also periodic hematuria in setting of eliquis
admitted with pain/weakness
in retention- arechiga placed
prob UTI
ct scan with retention and expected hydro in setting of bladder distention
plan
hold eliquis for 48hrs
continue arechiga
await ucx
track renal function
Consultation
-
Date/Time Consultation Requested: 09/26/24 at 6pm
Date/Time Consultation Performed: 09/27/24 at 7am
Requesting Provider: carlotta
Performing Provider: israel
Reason for Consultation: urology problems
--- NOTE | 2024-09-27 09:19 | PTCARENOTE ---
BP 171/83 this am- hospitalist notified, midodrine not given.
[2024-09-27 11:48] LABS: Glucose - Point of Care 162 mg/dl (70-99)
--- NOTE | 2024-09-27 12:45 | W.PN.NEPH.PH ---
Today's Communication / Plan
-
Changed to D5W
Assessment/Plan
-
88-year-old male past medical history of A-fib currently on Eliquis, hypertension, diabetes, previous stroke presenting to the emergency department with concerns of generalized weakness and bodyaches generalized weakness worsening over the past few
days and bodyaches . He currently is in rehab from that admission couple weeks ago for ileus which resolved on its own without intervention.
He has a normal creatinine at baseline and presents with a creatinine of 8.8.
Straight cath in the ER revealed 700 cc of urine output.
Hemodynamically stable
Impression.
Acute kidney injury with a creatinine of 8.8 discharged September 18 with a creatinine of 0.9.
Leukocytosis possible UTI./History of recurrent UTIs
Atrial fibrillation stable.
Hyperkalemia.
Acute metabolic acidosis.
Diabetes stable.
Plan.
CAT scan-Moderate bilateral renal collecting system and ureteral dilatation, new in the interval since prior CT. Cannot exclude 1 mm calculus along the course of the distal right ureter. Tiny bilateral nonobstructing renal calculi
Status post Mackay catheter placed/urology noted
Antibiotics UTI coverage.
Pending imaging will consider indwelling Mackay catheter.
No acute need for dialysis.
Mackay catheter = family questioned duration of Mackay catheter which we will refer to urology
Change fluids to D5 W with postobstructive diuresis and increasing sodium and hypertension
Hold midodrine with hypertension

-
-
Date of Service: September 27, 2024
CC / HPI / ROS
-
Chief Complaint:
Acute kidney injury
History of Present Illness:
Acute kidney injury secondary to urinary retention status post Mackay catheter
Review of Systems:
Continues to have weakness
Mackay catheter nonoliguric postobstructive diuresis
Labs
-
Labs:
WBC 9.2 10^3/uL (4.8-10.8) 09/27/24 06:26
RBC 4.11 10^6/uL (4.70-6.10) L 09/27/24 06:26
Hgb 13.3 g/dL (13.0-18.0) 09/27/24 06:26
Hct 39.5 % (39.0-52.0) 09/27/24 06:26
Plt Count 254 10^3/uL (130-400) 09/27/24 06:26
Sodium 144 mmol/L (135-145) 09/27/24 06:26
Potassium 5.1 mmol/L (3.5-5.1) 09/27/24 06:26
Chloride 114 mmol/L (98-107) H 09/27/24 06:26
Carbon Dioxide 19 mmol/L (22-30) L 09/27/24 06:26
BUN 79 mg/dl (9-20) H 09/27/24 06:26
Creatinine 4.8 mg/dL (0.7-1.3) H* 09/27/24 06:26
eGFR 11.09 09/27/24 06:26
Glucose 137 mg/dl (70-99) H 09/27/24 06:26
Calcium 8.4 mg/dl (8.4-10.2) 09/27/24 06:26
Albumin 3.6 g/dl (3.5-5.0) 09/26/24 14:36
Physical Exam
-
Vital Signs:
Vital Signs
Temp Pulse Resp BP Pulse Ox
98 F 84 18 179/88 98
09/27/24 11:24 09/27/24 11:24 09/27/24 11:24 09/27/24 11:24 09/27/24 11:24
Respiratory:: Bilateral: CTA
Lung Excursion:: Normal
Abdomen:: Nontender and Soft
Bowel Sounds:: Normal
Extremity Edema:: None: Bilateral:
Mackay Catheter: Yes
[2024-09-27] MEDS: NOVOLOG FLEXPEN-LOW RESISTANCE 1 UNITS SC (13:01)
[2024-09-27] MEDS: D5W 1000 IV ×2 (13:10→21:30)
[2024-09-27 15:25] LABS: Glucose - Point of Care 243 mg/dl (70-99)
[2024-09-27] MEDS: FLOMAX 0.4 MG PO ×2 (16:01→16:05)
[2024-09-27] MEDS: STERILE WATER FOR INJECTION 10 ML IV (16:02)
[2024-09-27] MEDS: ROCEPHIN 1000 MG IV (16:02)
[2024-09-27] MEDS: FLORASTOR 250 MG PO ×2 (16:03→21:29)
[2024-09-27] MEDS: NOVOLOG FLEXPEN-LOW RESISTANCE 2 UNITS SC (16:04)
[2024-09-27] MEDS: PROSCAR 5 MG PO (16:05)
--- NOTE | 2024-09-27 16:59 | W.PN.HOSP.TC ---
Today's Communication/Plan
-
IV fluids
Mackay
Follow creatinine
Assessment / Plan
Assessment / Plan
88-year-old female presented with generalized weakness and bodyaches. He was admitted here recently and was discharged. At that time he had ileus. Patient's creatinine was found to be 8.8 on admission and straight cath revealed 700 mL of urine.
CT abdomen and pelvis-mild hepatomegaly, markedly limited evaluation. Moderate bilateral renal collecting system and ureteral dilatation cannot exclude 1 mm calculus along the course of the distal right ureter. Tiny bilateral nonobstructing renal
calculi. Cannot exclude ureteral and renal collecting system dilatation based on vesicoureteral reflux. Stable mesenteric pancolitis.
Examination awake and alert
Cardiovascular system S1-S2 appreciated
Chest clear to auscultation
Abdomen soft nontender
No pedal edema
# Acute kidney injury with hyperkalemia and metabolic acidosis
Creatinine was 8.8 with a potassium of 5.5 on admission
Hyperkalemia resolved
Likely secondary to postrenal reasons
Continue IV fluids and urinary diversion with Mackay catheter
Creatinine improving
# Abnormal urinalysis-on ceftriaxone but cultures pending
# Atrial fibrillation-paroxysmal
Continue Eliquis. Not on any rate controlling agents
# Enlarged prostate-continue finasteride and Flomax
# Diabetes-continue NPH, sliding scale. Hold Januvia
Patient normally uses NPH insulin 60 units in the morning and 50 units in the evening
# History of stroke-continue Eliquis
# Obesity with a BMI of 34
# Sleep apnea-continue CPAP
# Cognitive impairment
# History of lumbar laminectomy, chronic back pain
# DVT prophylaxis-continue Eliquis
# Full code
Discussed with nursing
Discussed with at bedside
Anticipated Discharge: > 48 hours
Subjective/Interval History
-
Date of Service: September 27, 2024
Objective Data
-
Labs:
Laboratory Results
09/27/24
06:26
WBC 9.2
Hgb 13.3
Hct 39.5
Plt Count 254
Sodium 144
Potassium 5.1
Chloride 114 H
Carbon Dioxide 19 L
BUN 79 H
Creatinine 4.8 H*
Glucose 137 H
Calcium 8.4
Vital Signs:
Vital Signs
Temp Pulse Resp BP Pulse Ox
98.3 F 88 16 167/94 96
09/27/24 15:00 09/27/24 15:00 09/27/24 15:00 09/27/24 15:00 09/27/24 15:00
I&O
09/26/24 09/27/24 09/28/24
06:59 06:59 06:59
Intake Total 1979 / 1979 1830 / 1830
Output Total 4000 / 4000 2009
Balance -2020 / -2020 -180 / -180
[2024-09-27 21:51] LABS: Glucose - Point of Care 241 mg/dl (70-99)
[2024-09-28] VITALS (7 sets, daily range): BP systolic 134–176; BP diastolic 72–95; PULSE 81; O2SAT 96
--- NOTE | 2024-09-28 04:26 | PTCARENOTE ---
AAO to self, unaware of place, time and/or situation. BP elevated but trended down with no medicinal intervention. Last BP 134/72. NSR on telemetry. Mackay care completed. Significant swelling of penis and scrotum noted. Q 2 hour turns. All patient
needs met. Bed in lowest position. Bed alarm on. Call killian and personal belongings within reach.
--- NOTE | 2024-09-28 07:05 | W.PN.URO.CBU ---
Today's Communication / Plan
-
continue arechiga
Assessment / Plan
-
hx of recurrent UTI
urinary retention with hydro
pt improving from gu standpoint
no evid of infx at this time- follow cx's
continue arechiga and track cr level
hold eliquis today- if urine remains clear ok to restart tomorrow
will follow- but likely will need to be discharged with arechiga and outpt cyto/ eval for surgical candidacy
Diagnosis
-
Date of Service: September 28, 2024
-
Patient Diagnosis:
recurrent UTI
urinary retention
hydro and ARF secondary to bladder obstruction
Subjective
-
pt feels about the same
primary c/o is of neck pain
arechiga in place- urine clear
cx' negative to date
cr pending
Objective
-
Vital Signs
Temp Pulse Resp BP Pulse Ox
97.6 F 82 18 134/72 97
09/28/24 03:25 09/28/24 03:25 09/28/24 03:25 09/28/24 03:25 09/28/24 03:25
Intake and Output
09/27/24 09/28/24 09/29/24
06:59 06:59 06:59
Intake Total 1979 / 1979 1830 / 1830
Output Total 4000 / 4000 4510 / 4510
Balance -2019 / -2019 -2679 / -2679
Intake:
Oral fluids 480 / 480 480 / 480
IV fluids (Total) 1500 / 1500 1350 / 1350
Output:
Urine, Arechiga 4510 / 4510
Urine, Voided 4000 / 4000
Review of Systems
-
Constitutional: Fever
Respiratory: No Symptoms
Cardiac: No Symptoms
Abdomen/GI: No Symptoms
: Other (arechiga bother)
Musculoskeletal: Other (neck and back pain)
Physical Exam
-
General - no acute distress
Abdomen - soft, non-tender
Genitalia - arechiga in place
[2024-09-28 07:57] LABS: Glucose - Point of Care 205 mg/dl (70-99)
[2024-09-28 08:10] LABS: Hematocrit 39.4 % (39.0-52.0); Hemoglobin 13.1 g/dL (13.0-18.0); Mean Corp Hgb Conc. 33.2 g/dL (33.0-37.0); Mean Corpuscular Hgb 31.9 pg (27.0-31.0); Mean Corpuscular Volume 95.9 fL (80.0-94.0); Mean Platelet Volume 10.2 fL (7.4-10.4); Platelet Count 260 10^3/uL (130-400); Red Blood Cell Count 4.11 10^6/uL (4.70-6.10); Red Cell Dist. Width 12.5 % (11.5-14.5); White Blood Cell Count 9.7 10^3/uL (4.8-10.8)
[2024-09-28] MEDS: NOVOLOG FLEXPEN-LOW RESISTANCE 2 UNITS SC ×3 (08:16→16:58)
[2024-09-28] MEDS: MUCINEX 600 MG PO ×2 (08:16→21:48)
[2024-09-28] MEDS: OCUVITE SOFTGEL 1 CAP PO (08:16)
[2024-09-28] MEDS: HUMULIN N KWIKPEN 20 UNITS SC (08:17)
[2024-09-28] MEDS: FLORASTOR 250 MG PO ×2 (08:17→21:48)
[2024-09-28] MEDS: D5W 1000 IV ×2 (08:18→18:13)
[2024-09-28 09:00] LABS: Blood Urea Nitrogen 40 mg/dl (9-20); Calcium 8.4 mg/dl (8.4-10.2); Carbon Dioxide 21 mmol/L (22-30); Chloride 111 mmol/L (98-107); Estimated Creatinine Clearance 40 ml/min; Glucose 253 mg/dl (70-99); Potassium 4.6 mmol/L (3.5-5.1); Sodium 141 mmol/L (135-145); eGFR 38.53
--- NOTE | 2024-09-28 11:05 | CM ---
Patient seen at bedside with Cely
IA completed
Lives at [facility] [place] elevator access
PLOF: uses walker
DME: walker, power chair, CPAP
Patient came from [facility]
PT eval SNF - will return to [facility] for cont skilled rehab
Referral entered in careport
PCP: Stacie Barker
Pharmacy: [facility], [facility]
PLAN: [facility], pending bed availability when stable
--- NOTE | 2024-09-28 11:49 | W.PN.NEPH.PH ---
Today's Communication / Plan
-
follow BMP
Assessment/Plan
-
88-year-old male past medical history of A-fib currently on Eliquis, hypertension, diabetes, previous stroke presenting to the emergency department with concerns of generalized weakness and bodyaches generalized weakness worsening over the past few
days and bodyaches . He currently is in rehab from that admission couple weeks ago for ileus which resolved on its own without intervention.
He has a normal creatinine at baseline and presents with a creatinine of 8.8.
Straight cath in the ER revealed 700 cc of urine output.
Hemodynamically stable
Impression.
Acute kidney injury with a creatinine of 8.8 discharged September 18 with a creatinine of 0.9.
Leukocytosis possible UTI./History of recurrent UTIs
Atrial fibrillation stable.
Hyperkalemia.
Acute metabolic acidosis.
Diabetes stable.
Plan.
continue IVF D5W
follow BMP
continue flomax/proscar
arechiga management per urology
no midodrine for now
-
-
Date of Service: September 28, 2024
CC / HPI / ROS
-
Chief Complaint:
Acute kidney injury
History of Present Illness:
Acute kidney injury secondary to urinary retention status post Arechiga catheter
BP stable
RAVEN/Cr down to 1.7
K normalized
mild acidosis persists
Review of Systems:
no CP/SOB
Arechiga catheter nonoliguric postobstructive diuresis
Labs
-
Labs:
WBC 9.7 10^3/uL (4.8-10.8) 09/28/24 06:30
RBC 4.11 10^6/uL (4.70-6.10) L 09/28/24 06:30
Hgb 13.1 g/dL (13.0-18.0) 09/28/24 06:30
Hct 39.4 % (39.0-52.0) 09/28/24 06:30
Plt Count 260 10^3/uL (130-400) 09/28/24 06:30
Sodium 141 mmol/L (135-145) 09/28/24 06:30
Potassium 4.6 mmol/L (3.5-5.1) 09/28/24 06:30
Chloride 111 mmol/L (98-107) H 09/28/24 06:30
Carbon Dioxide 21 mmol/L (22-30) L 09/28/24 06:30
BUN 40 mg/dl (9-20) H 09/28/24 06:30
Creatinine 1.7 mg/dL (0.7-1.3) H 09/28/24 06:30
eGFR 38.53 09/28/24 06:30
Glucose 253 mg/dl (70-99) H 09/28/24 06:30
Calcium 8.4 mg/dl (8.4-10.2) 09/28/24 06:30
Albumin 3.6 g/dl (3.5-5.0) 09/26/24 14:36
Physical Exam
-
Vital Signs:
Vital Signs
Temp Pulse Resp BP Pulse Ox
97.3 F 78 18 175/95 95
09/28/24 11:25 09/28/24 11:25 09/28/24 11:25 09/28/24 11:25 09/28/24 11:25
Cardiovascular:: Regular rate and rhythm
Respiratory:: Bilateral: CTA
Lung Excursion:: Normal
Abdomen:: Nontender and Soft
Bowel Sounds:: Normal
Extremity Edema:: None: Bilateral:
[2024-09-28 12:00] LABS: Glucose - Point of Care 242 mg/dl (70-99)
--- NOTE | 2024-09-28 13:28 | W.PN.HOSP.TC ---
Today's Communication/Plan
-
Stop IV fluids if okay with nephrology
Watch blood pressure
MRI of the cervical spine
PT OT
Assessment / Plan
Assessment / Plan
88-year-old female presented with generalized weakness and body aches. He was admitted here recently and was discharged. At that time he had ileus. Patient's creatinine was found to be 8.8 on admission and straight cath revealed 700 mL of urine.
CT abdomen and pelvis-mild hepatomegaly, markedly limited evaluation. Moderate bilateral renal collecting system and ureteral dilatation cannot exclude 1 mm calculus along the course of the distal right ureter. Tiny bilateral nonobstructing renal
calculi. Cannot exclude ureteral and renal collecting system dilatation based on vesicoureteral reflux. Stable mesenteric pancolitis.
Examination awake and alert
Cardiovascular system S1-S2 appreciated
Chest clear to auscultation
Abdomen soft nontender
No pedal edema
# Acute kidney injury with hyperkalemia and metabolic acidosis
Creatinine was 8.8 with a potassium of 5.5 on admission
Hyperkalemia resolved
Likely secondary to postrenal reasons
Continue IV fluids and urinary diversion with Mackay catheter
Creatinine improving
# High blood pressure. Patient does not have a history of hypertension-Will stop IV fluids if renal also agrees. Treat pain which may also be contributing to this.
# Neck pain-tenderness appreciated on exam. Patient is not able to move. Check MRI of the cervical spine.
# Abnormal urinalysis-discontinue ceftriaxone as cultures are negative
# Atrial csndjuyznbzl-wulmvtrvec-Vcuosbv was on hold per urology. Restart tomorrow. Not on any rate controlling agents
# Enlarged prostate-continue finasteride and Flomax
# Diabetes-continue NPH, sliding scale. Hold Januvia
Patient normally uses NPH insulin 60 units in the morning and 50 units in the evening
Increase NPH insulin to 45 units twice daily, now that renal function is recovering
6 units of NovoLog now
# History of stroke-Eliquis was on hold per urology. Restart tomorrow
# Obesity with a BMI of 34
# Sleep apnea-continue CPAP
# Cognitive impairment
# History of lumbar laminectomy, chronic back pain
# DVT prophylaxis-continue Eliquis
# Full code
Discussed with nursing at bedside
Discussed with at bedside
D/W NEphrology
Anticipated Discharge: Within 24 hours
Subjective/Interval History
-
Date of Service: September 28, 2024
Objective Data
-
Labs:
Laboratory Results
09/28/24
06:30
WBC 9.7
Hgb 13.1
Hct 39.4
Plt Count 260
Sodium 141
Potassium 4.6
Chloride 111 H
Carbon Dioxide 21 L
BUN 40 H
Creatinine 1.7 H
Glucose 253 H
Calcium 8.4
Vital Signs:
Vital Signs
Temp Pulse Resp BP Pulse Ox
97.3 F 78 18 175/95 95
09/28/24 11:25 09/28/24 11:25 09/28/24 11:25 09/28/24 11:25 09/28/24 11:25
I&O
09/27/24 09/28/24 09/29/24
06:59 06:59 06:59
Intake Total 1979 / 1979 1829 / 1829
Output Total 4000 / 4000 4510 / 4510
Balance -2020 / -2019 -2679 / -268
[2024-09-28] MEDS: NOVOLOG FLEXPEN 6 UNITS SC (15:43)
[2024-09-28] MEDS: STERILE WATER FOR INJECTION 10 ML IV (15:44)
[2024-09-28] MEDS: ROCEPHIN 1000 MG IV (15:44)
[2024-09-28] MEDS: HEPARIN 5000 UNITS SC (15:44)
[2024-09-28 16:55] LABS: Glucose - Point of Care 227 mg/dl (70-99)
[2024-09-28] MEDS: PROSCAR 5 MG PO (17:00)
[2024-09-28] MEDS: HUMULIN N KWIKPEN 45 UNITS SC (17:00)
--- NOTE | 2024-09-28 20:29 | W.PN.URO.CBU ---
Today's Communication / Plan
-
home when ok with hospitalist with arechiga
Assessment / Plan
-
hx of recurrent UTI
urinary retention with hydro
pt improving from gu standpoint
no evid of infx at this time- follow cx's
continue arechiga and track cr level
hold eliquis today- if urine remains clear ok to restart tomorrow
will follow- but likely will need to be discharged with arechiga and outpt cyto/ eval for surgical candidacy
Diagnosis
-
Date of Service: September 28, 2024
-
Patient Diagnosis:
Post Op Day:
Patient Diagnosis:
recurrent UTI
urinary retention
hydro and ARF secondary to bladder obstruction
Subjective
-
tired
Objective
-
Vital Signs
Temp Pulse Resp BP Pulse Ox
98.1 F 83 16 148/78 97
09/28/24 19:28 09/28/24 19:28 09/28/24 19:28 09/28/24 19:28 09/28/24 19:28
Intake and Output
09/27/24 09/28/24 09/29/24
06:59 06:59 06:59
Intake Total 1979 / 1979 183 / 183
Output Total 4000 / 4000 4510 / 4510 800 / 800
Balance -2019 / -2020 -2680 / -2680 -800 / -800
Intake:
Oral fluids 480 / 480 480 / 480
IV fluids (Total) 1500 / 1500 1350 / 1350
Output:
Urine, Arechiga 4510 / 4510 800 / 800
Urine, Voided 4000 / 4000
Laboratory Results
09/28/24 06:30
09/28/24 06:30
Review of Systems
-
: Difficulty Voiding
Physical Exam
-
General - well developed, well nourished, no acute distress
Chest - clear bilaterally
Abdomen - soft, non-tender, positive bowel sounds, no CVAT, no incisional pain or distention
Genitalia - normal
Rectal - normal
Skin - warm & dry with no rash
Neuro - AOx3, no motor deficits
Extremities - no clubbing, no cyanosis, no edema
Incision - clean, dry
Dressing - clean, dry, intact
[2024-09-28] MEDS: FLEXERIL 2.5 MG PO (21:48)
[2024-09-28 21:57] LABS: Glucose - Point of Care 142 mg/dl (70-99)
[2024-09-29] MEDS: HEPARIN 5000 UNITS SC ×2 (00:37→10:02)
[2024-09-29 03:07] VITALS: BP 149/78
[2024-09-29] MEDS: D5W 1000 IV (05:33)
[2024-09-29 07:39] LABS: Hematocrit 40.5 % (39.0-52.0); Hemoglobin 13.3 g/dL (13.0-18.0); Mean Corp Hgb Conc. 32.8 g/dL (33.0-37.0); Mean Corpuscular Hgb 31.4 pg (27.0-31.0); Mean Corpuscular Volume 95.5 fL (80.0-94.0); Platelet Count 269 10^3/uL (130-400); Red Blood Cell Count 4.24 10^6/uL (4.70-6.10); Red Cell Dist. Width 12.7 % (11.5-14.5); White Blood Cell Count 11.1 10^3/uL (4.8-10.8)
[2024-09-29 07:51] VITALS: BP 155/88
[2024-09-29 08:11] LABS: Blood Urea Nitrogen 31 mg/dl (9-20); Calcium 8.7 mg/dl (8.4-10.2); Carbon Dioxide 23 mmol/L (22-30); Chloride 110 mmol/L (98-107); Estimated Creatinine Clearance 57 ml/min; Glucose 248 mg/dl (70-99); Potassium 4.6 mmol/L (3.5-5.1); Sodium 142 mmol/L (135-145); eGFR 58.53
[2024-09-29] MEDS: NOVOLOG FLEXPEN-LOW RESISTANCE SC ×2 (08:25→10:28)
[2024-09-29 08:27] LABS: Glucose - Point of Care 279 mg/dl (70-99)
[2024-09-29] MEDS: HUMULIN N KWIKPEN SC (09:45)
[2024-09-29] MEDS: MUCINEX 600 MG PO ×2 (10:01→21:10)
[2024-09-29] MEDS: OCUVITE SOFTGEL 1 CAP PO (10:01)
[2024-09-29] MEDS: FLORASTOR 250 MG PO ×2 (10:02→21:09)
--- NOTE | 2024-09-29 10:06 | W.PN.URO.CBU ---
Today's Communication / Plan
-
plan per hospitaist but can transfer with arechiga when hospitalist agrees
Assessment / Plan
-
hx of recurrent UTI
urinary retention with hydro
pt improving from gu standpoint
no evid of infx at this time- follow cx's
continue arechiga and track cr level
hold eliquis today- if urine remains clear ok to restart tomorrow
will follow- but likely will need to be discharged with arechiga and outpt cyto/ eval for surgical candidacy
Diagnosis
-
Date of Service: September 29, 2024
-
Patient Diagnosis:
Post Op Day:
Patient Diagnosis:
Post Op Day:
Patient Diagnosis:
recurrent UTI
urinary retention
hydro and ARF secondary to bladder obstruction
Subjective
-
[poor historian b ut no major complaints other than arechiga
Objective
-
Vital Signs
Temp Pulse Resp BP Pulse Ox
97.3 F 95 18 155/88 97
09/29/24 07:51 09/29/24 07:51 09/29/24 07:51 09/29/24 07:51 09/29/24 07:51
Intake and Output
09/28/24 09/29/24 09/30/24
06:59 06:59 06:59
Intake Total 1830 / 1830
Output Total 4510 / 4510 1350 / 1350 850 / 850
Balance -2680 / -2680 -1350 / -1350 -850 / -850
Intake:
Oral fluids 480 / 480
IV fluids (Total) 1350 / 1350
Output:
Urine, Arechiga 4510 / 4510 1350 / 1350 850 / 850
Laboratory Results
09/29/24 07:00
09/29/24 07:00
Review of Systems
-
: Difficulty Voiding
Physical Exam
-
General - well developed, well nourished, no acute distress
Chest - clear bilaterally
Abdomen - soft, non-tender, positive bowel sounds, no CVAT, no incisional pain or distention
Genitalia - normal
Rectal - normal
Skin - warm & dry with no rash
Neuro - AOx3, no motor deficits
Extremities - no clubbing, no cyanosis, no edema
Incision - clean, dry
Dressing - clean, dry, intact
Care Review
Data Reviewed
Discussed with: Nursing
[2024-09-29] MEDS: HUMULIN N KWIKPEN 5 UNITS SC (10:31)
[2024-09-29] MEDS: FLEXERIL 2.5 MG PO (10:32)
--- NOTE | 2024-09-29 10:47 | W.PN.NEPH.PH ---
Today's Communication / Plan
-
cap IVF
Assessment/Plan
-
88-year-old male past medical history of A-fib currently on Eliquis, hypertension, diabetes, previous stroke presenting to the emergency department with concerns of generalized weakness and bodyaches generalized weakness worsening over the past few
days and bodyaches . He currently is in rehab from that admission couple weeks ago for ileus which resolved on its own without intervention.
He has a normal creatinine at baseline and presents with a creatinine of 8.8.
Straight cath in the ER revealed 700 cc of urine output.
Hemodynamically stable
Impression.
Acute kidney injury with a creatinine of 8.8 discharged September 18 with a creatinine of 0.9.
Leukocytosis possible UTI./History of recurrent UTIs
Atrial fibrillation stable.
Hyperkalemia.
Acute metabolic acidosis.
Diabetes stable.
Plan.
cap IVF
follow BMP
continue flomax/proscar
arechiga management per urology
no midodrine for now
need to see what po intake is
-
-
Date of Service: September 29, 2024
CC / HPI / ROS
-
Chief Complaint:
Acute kidney injury
History of Present Illness:
Acute kidney injury secondary to urinary retention status post Arechiga catheter
BP stable
RAVEN/Cr down to 1.2
K normalized
mild acidosis persists
Review of Systems:
no CP/SOB
Arechiga catheter nonoliguric postobstructive diuresis
not eating
Labs
-
Labs:
WBC 11.1 10^3/uL (4.8-10.8) H 09/29/24 07:00
RBC 4.24 10^6/uL (4.70-6.10) L 09/29/24 07:00
Hgb 13.3 g/dL (13.0-18.0) 09/29/24 07:00
Hct 40.5 % (39.0-52.0) 09/29/24 07:00
Plt Count 269 10^3/uL (130-400) 09/29/24 07:00
Sodium 142 mmol/L (135-145) 09/29/24 07:00
Potassium 4.6 mmol/L (3.5-5.1) 09/29/24 07:00
Chloride 110 mmol/L (98-107) H 09/29/24 07:00
Carbon Dioxide 23 mmol/L (22-30) 09/29/24 07:00
BUN 31 mg/dl (9-20) H 09/29/24 07:00
Creatinine 1.2 mg/dL (0.7-1.3) 09/29/24 07:00
eGFR 58.53 09/29/24 07:00
Glucose 248 mg/dl (70-99) H 09/29/24 07:00
Calcium 8.7 mg/dl (8.4-10.2) 09/29/24 07:00
Albumin 3.6 g/dl (3.5-5.0) 09/26/24 14:36
Physical Exam
-
Vital Signs:
Vital Signs
Temp Pulse Resp BP Pulse Ox
97.3 F 95 18 155/88 97
09/29/24 07:51 09/29/24 07:51 09/29/24 07:51 09/29/24 07:51 09/29/24 07:51
Cardiovascular:: Regular rate and rhythm
Respiratory:: Bilateral: CTA
Lung Excursion:: Normal
Abdomen:: Nontender
Bowel Sounds:: Normal
Extremity Edema:: None: Bilateral:
--- NOTE | 2024-09-29 12:46 | PTCARENOTE ---
Assumed care of pt from previous nurse. pt with some discomfort to neck and back, prn medication provided with positive results. pt is on tele running nsr with pvc. Pt arechiga draining clear yellow urine. Pt call killian is within reach, pt rings roby.
will cont to monitor.
[2024-09-29 13:35] LABS: Glucose - Point of Care 272 mg/dl (70-99)
[2024-09-29] MEDS: NOVOLOG FLEXPEN-LOW RESISTANCE 3 UNITS SC (13:44)
--- NOTE | 2024-09-29 13:59 | W.PN.HOSP.TC ---
Today's Communication/Plan
-
Start steroids
Increase NPH insulin
14 units of NovoLog insulin now
Restart Januvia
Restart Eliquis
PT
Discharge planning
Assessment / Plan
Assessment / Plan
88-year-old female presented with generalized weakness and body aches. He was admitted here recently and was discharged. At that time he had ileus. Patient's creatinine was found to be 8.8 on admission and straight cath revealed 700 mL of urine.
CT abdomen and pelvis-mild hepatomegaly, markedly limited evaluation. Moderate bilateral renal collecting system and ureteral dilatation cannot exclude 1 mm calculus along the course of the distal right ureter. Tiny bilateral nonobstructing renal
calculi. Cannot exclude ureteral and renal collecting system dilatation based on vesicoureteral reflux. Stable mesenteric pancolitis.
MRI of the cervical spine-chronic degenerative changes in the cervical spine including degenerative disc disease with multilevel disc bulges, arthrosis, facet arthrosis. Varying degrees of chronic multilevel bilateral neuroforaminal stenosis at
C4-C5 level. Mild progression of degenerative findings
Examination awake and alert
Cardiovascular system S1-S2 appreciated
Chest clear to auscultation
Abdomen soft nontender
No pedal edema
# Acute kidney injury with hyperkalemia and metabolic acidosis
Creatinine was 8.8 with a potassium of 5.5 on admission
Hyperkalemia resolved
Likely secondary to postrenal reasons
Continue urinary diversion with Mackay catheter
Creatinine improving 1.2 today
# High blood pressure. Patient does not have a history of hypertension-blood pressure better
# Neck pain-tenderness appreciated on exam. Patient is not able to move. Check MRI of the cervical spine as above. Trial of steroids to see if the pain is better
# Abnormal urinalysis-stopped ceftriaxone as cultures are negative
# Atrial riupdaqczpfl-xffkncqvxd-kyncyem Eliquis
# Enlarged prostate-continue Finasteride and Flomax
# Diabetes-continue NPH, sliding scale. Januvia
Patient normally uses NPH insulin 60 units in the morning and 50 units in the evening
Watch sugars with steroids
# History of stroke-Eliquis
# Obesity with a BMI of 34
# Sleep apnea-continue CPAP
# Cognitive impairment
# History of lumbar laminectomy, chronic back pain
# DVT prophylaxis-continue Eliquis
# Full code
Discussed with nursing at bedside
Discussed with at bedside
Encourage out of bed to chair
Anticipated Discharge: Within 24 hours
Subjective/Interval History
-
Date of Service: September 29, 2024
Objective Data
-
Labs:
Laboratory Results
09/29/24
07:00
WBC 11.1 H
Hgb 13.3
Hct 40.5
Plt Count 269
Sodium 142
Potassium 4.6
Chloride 110 H
Carbon Dioxide 23
BUN 31 H
Creatinine 1.2
Glucose 248 H
Calcium 8.7
Vital Signs:
Vital Signs
Temp Pulse Resp BP Pulse Ox
97.3 F 95 18 155/88 97
09/29/24 07:51 09/29/24 07:51 09/29/24 07:51 09/29/24 07:51 09/29/24 08:30
I&O
09/28/24 09/29/24 09/30/24
06:59 06:59 06:59
Intake Total 1830 / 1830
Output Total 4510 / 4510 1350 / 1350 850 / 850
Balance -2680 / -2680 -1350 / -1350 -850 / -850
[2024-09-29 15:30] VITALS: BP 155/79
[2024-09-29] MEDS: JANUVIA 100 MG PO (15:51)
[2024-09-29] MEDS: DELTASONE 40 MG PO (15:51)
[2024-09-29 17:29] LABS: Glucose - Point of Care 239 mg/dl (70-99)
[2024-09-29] MEDS: FLOMAX 0.4 MG PO (18:53)
[2024-09-29] MEDS: PROSCAR 5 MG PO (18:53)
[2024-09-29] MEDS: TYLENOL 1000 MG PO (18:53)
[2024-09-29] MEDS: NOVOLOG FLEXPEN-LOW RESISTANCE 2 UNITS SC (19:13)
[2024-09-29 19:23] VITALS: BP 142/82
--- NOTE | 2024-09-29 21:00 | PTCARENOTE ---
While administering meds, patient lethargic with oral motor weakness as evidenced by inability to drink from his straw. Medications administered in applesauce. CHEMICAL ENGINEERING TEACHER consulted.
[2024-09-29] MEDS: HUMULIN N KWIKPEN 50 UNITS SC (21:10)
[2024-09-29] MEDS: HIPREX 1 GRAM PO (21:10)
[2024-09-29] MEDS: ELIQUIS 5 MG PO (21:10)
[2024-09-29 22:08] LABS: Glucose - Point of Care 280 mg/dl (70-99)
[2024-09-29 23:24] VITALS: BP 142/87
[2024-09-30] MEDS: TYLENOL PO (01:45)
[2024-09-30 06:12] LABS: Hematocrit 39.7 % (39.0-52.0); Hemoglobin 13.3 g/dL (13.0-18.0); Mean Corp Hgb Conc. 33.5 g/dL (33.0-37.0); Mean Corpuscular Hgb 31.6 pg (27.0-31.0); Mean Corpuscular Volume 94.3 fL (80.0-94.0); Mean Platelet Volume 10.3 fL (7.4-10.4); Platelet Count 263 10^3/uL (130-400); Red Blood Cell Count 4.21 10^6/uL (4.70-6.10); Red Cell Dist. Width 12.3 % (11.5-14.5); White Blood Cell Count 11.8 10^3/uL (4.8-10.8)
[2024-09-30 06:25] LABS: Blood Urea Nitrogen 30 mg/dl (9-20); Calcium 8.9 mg/dl (8.4-10.2); Carbon Dioxide 20 mmol/L (22-30); Chloride 111 mmol/L (98-107); Estimated Creatinine Clearance 57 ml/min; Glucose 302 mg/dl (70-99); Potassium 4.9 mmol/L (3.5-5.1); Sodium 141 mmol/L (135-145); eGFR 58.53
[2024-09-30 07:16] VITALS: BP 151/83
[2024-09-30] MEDS: HIPREX 1 GRAM PO ×2 (08:08→20:41)
[2024-09-30] MEDS: MUCINEX 600 MG PO ×2 (08:08→20:41)
[2024-09-30] MEDS: OCUVITE SOFTGEL 1 CAP PO (08:08)
[2024-09-30] MEDS: FLORASTOR 250 MG PO ×2 (08:08→20:41)
[2024-09-30] MEDS: JANUVIA 100 MG PO (08:08)
[2024-09-30] MEDS: ELIQUIS 5 MG PO ×2 (08:08→20:41)
[2024-09-30] MEDS: HUMULIN N KWIKPEN 60 UNITS SC (08:09)
[2024-09-30] MEDS: TYLENOL 1000 MG PO ×2 (08:09→17:04)
[2024-09-30] MEDS: DELTASONE 40 MG PO (08:09)
[2024-09-30 08:10] LABS: Glucose - Point of Care 274 mg/dl (70-99)
[2024-09-30] MEDS: NOVOLOG FLEXPEN-LOW RESISTANCE 3 UNITS SC ×3 (08:13→17:04)
[2024-09-30] MEDS: NOVOLOG FLEXPEN 10 UNITS SC ×3 (09:14→17:03)
--- NOTE | 2024-09-30 10:09 | PTOTSP ---
Speech Pathology
Clinical Swallow Evaluation
88M with admission for RAVEN p/w s/s of a mild oropharyngeal dysphagia characterized by overt s/s of aspiration with mixed consistencies, oral residue observed with regular textures, and known hx of silent aspiration on thin liquids per video swallow
study in 04/2024.
Most recent VSE was 04/26/24 w/ silent aspiration with thin liquids and recommendations for soft and bite sized (IDDSI 6) and mildly thick liquids (IDDSI 2). Patient self-advanced diet back to regular/thins at home with no pulmonary complications.
Spouse is a speech pathologist per patient.
Aspiration risk is increased at this time 2/2 current changes in mentation 2/2 RAVEN and intermittent dependence on feeding.
Recommend:
1. Regular textures, thin liquids
2. Meds whole in puree
3. Safe swallowing strategies: Avoid mixed consistencies, single sips, small bites, encourage self-feeding as able
4. Oral care 3-4x day
5. LOG BRANDER service to follow up re: to assess diet level tolerance in light of current increased concerns for aspiration
--- NOTE | 2024-09-30 11:20 | W.PN.NEPH.PH ---
Today's Communication / Plan
-
follow BMP
Assessment/Plan
-
88-year-old male past medical history of A-fib currently on Eliquis, hypertension, diabetes, previous stroke presenting to the emergency department with concerns of generalized weakness and bodyaches generalized weakness worsening over the past few
days and bodyaches . He currently is in rehab from that admission couple weeks ago for ileus which resolved on its own without intervention.
He has a normal creatinine at baseline and presents with a creatinine of 8.8.
Straight cath in the ER revealed 700 cc of urine output.
Hemodynamically stable
Impression.
Acute kidney injury with a creatinine of 8.8 discharged September 18 with a creatinine of 0.9.
Leukocytosis possible UTI./History of recurrent UTIs
Atrial fibrillation stable.
Hyperkalemia.
Acute metabolic acidosis.
Diabetes stable.
Plan.
follow BMP
continue flomax/proscar
arechiga management per urology
no midodrine needed
-
-
Date of Service: September 30, 2024
CC / HPI / ROS
-
Chief Complaint:
Acute kidney injury
History of Present Illness:
Acute kidney injury secondary to urinary retention status post Arechiga catheter
BP stable
RAVEN/Cr down to 1.2 stable
K normalized
mild acidosis persists 20
eating more
Review of Systems:
no CP/SOB
Arechiga catheter nonoliguric postobstructive diuresis
Labs
-
Labs:
WBC 11.8 10^3/uL (4.8-10.8) H 09/30/24 05:21
RBC 4.21 10^6/uL (4.70-6.10) L 09/30/24 05:21
Hgb 13.3 g/dL (13.0-18.0) 09/30/24 05:21
Hct 39.7 % (39.0-52.0) 09/30/24 05:21
Plt Count 263 10^3/uL (130-400) 09/30/24 05:21
Sodium 141 mmol/L (135-145) 09/30/24 05:21
Potassium 4.9 mmol/L (3.5-5.1) 09/30/24 05:21
Chloride 111 mmol/L (98-107) H 09/30/24 05:21
Carbon Dioxide 20 mmol/L (22-30) L 09/30/24 05:21
BUN 30 mg/dl (9-20) H 09/30/24 05:21
Creatinine 1.2 mg/dL (0.7-1.3) 09/30/24 05:21
eGFR 58.53 09/30/24 05:21
Glucose 302 mg/dl (70-99) H 09/30/24 05:21
Calcium 8.9 mg/dl (8.4-10.2) 09/30/24 05:21
Albumin 3.6 g/dl (3.5-5.0) 09/26/24 14:36
Physical Exam
-
Vital Signs:
Vital Signs
Temp Pulse Resp BP Pulse Ox
97.4 F 72 18 151/83 96
09/30/24 07:16 09/30/24 07:16 09/30/24 07:16 09/30/24 07:16 09/30/24 08:00
Cardiovascular:: Regular rate and rhythm
Respiratory:: Bilateral: Coarse
Lung Excursion:: Normal
Abdomen:: Nontender and Soft
Bowel Sounds:: Normal
Extremity Edema:: None: Bilateral:
--- NOTE | 2024-09-30 11:29 | CM ---
CM reviewed chart, spoke with Columba from [facility], will have bed for patient tomorrow, ambulance forms on chart. Patient and seen bedside, IMM reviewed and provided, would like to hold off on signing until day of discharge. Patient
will need Covid test ordered prior to discharge. CM will continue to follow for all discharge planning needs.
Plan; [facility], ambulance forms on chart
[facility]:
Report: [phone]
[2024-09-30 11:56] LABS: Glucose - Point of Care 262 mg/dl (70-99)
--- NOTE | 2024-09-30 12:56 | W.PN.URO.CBU ---
Today's Communication / Plan
-
per hospitalist but when d/c will d/c with arechiga
Assessment / Plan
-
hx of recurrent UTI
urinary retention with hydro
pt improving from gu standpoint
no evid of infx at this time- follow cx's
continue arechiga and track cr level
hold eliquis today- if urine remains clear ok to restart tomorrow
will follow- but likely will need to be discharged with arechiga and outpt cyto/ eval for surgical candidacy
Diagnosis
-
Date of Service: September 30, 2024
-
Patient Diagnosis:
Post Op Day:
Patient Diagnosis:
Post Op Day:
Patient Diagnosis:
Post Op Day:
Patient Diagnosis:
recurrent UTI
urinary retention
hydro and ARF secondary to bladder obstruction
Subjective
-
somnolent
Objective
-
Vital Signs
Temp Pulse Resp BP Pulse Ox
97.4 F 72 18 151/83 96
09/30/24 07:16 09/30/24 07:16 09/30/24 07:16 09/30/24 07:16 09/30/24 08:00
Intake and Output
09/29/24 09/30/24 10/01/24
06:59 06:59 06:59
Intake Total 1260 / 1260
Output Total 1350 / 1350 2425 / 2425
Balance -1350 / -1350 -1165 / -1165
Intake:
Oral fluids 1260 / 1260
Output:
Urine, Arechiga 1350 / 1350 2425 / 2425
Laboratory Results
09/30/24 05:21
09/30/24 05:21
Review of Systems
-
: Difficulty Voiding
Physical Exam
-
General - well developed, well nourished, no acute distress
Chest - clear bilaterally
Abdomen - soft, non-tender, positive bowel sounds, no CVAT, no incisional pain or distention
Genitalia - normal
Rectal - normal
Skin - warm & dry with no rash
Neuro - AOx3, no motor deficits
Extremities - no clubbing, no cyanosis, no edema
Incision - clean, dry
Dressing - clean, dry, intact
Care Review
Data Reviewed
Discussed with: Family
--- NOTE | 2024-09-30 14:32 | W.PN.HOSP.TC ---
Today's Communication/Plan
-
Watch sugars with steroids
Possible discharge tomorrow
Assessment / Plan
Assessment / Plan
88-year-old female presented with generalized weakness and body aches. He was admitted here recently and was discharged. At that time he had ileus. Patient's creatinine was found to be 8.8 on admission and straight cath revealed 700 mL of urine.
CT abdomen and pelvis-mild hepatomegaly, markedly limited evaluation. Moderate bilateral renal collecting system and ureteral dilatation cannot exclude 1 mm calculus along the course of the distal right ureter. Tiny bilateral nonobstructing renal
calculi. Cannot exclude ureteral and renal collecting system dilatation based on vesicoureteral reflux. Stable mesenteric pancolitis.
MRI of the cervical spine-chronic degenerative changes in the cervical spine including degenerative disc disease with multilevel disc bulges, arthrosis, facet arthrosis. Varying degrees of chronic multilevel bilateral neuroforaminal stenosis at
C4-C5 level. Mild progression of degenerative findings
Examination awake and alert
Cardiovascular system S1-S2 appreciated
Chest clear to auscultation
Abdomen soft nontender
No pedal edema
# Acute kidney injury with hyperkalemia and metabolic acidosis
Creatinine was 8.8 with a potassium of 5.5 on admission
Hyperkalemia resolved
Likely secondary to postrenal reasons
Continue urinary diversion with Mackay catheter
Creatinine improving 1.2 today
# High blood pressure. Patient does not have a history of hypertension-blood pressure better
# Neck pain-tenderness appreciated on exam. Patient is not able to move. Check MRI of the cervical spine as above. Trial of steroids to see if the pain is better
# Abnormal urinalysis-stopped ceftriaxone as cultures are negative
# Atrial xrbpeztuopzh-slepadpiso-dfpelyfdh Eliquis
# Enlarged prostate-continue Finasteride and Flomax
# Diabetes-continue NPH, sliding scale. Januvia
Patient normally uses NPH insulin 60 units in the morning and 50 units in the evening
Watch sugars with steroids
NovoLog 10 AC added with steroids
# History of stroke-Eliquis
# Obesity with a BMI of 34
# Sleep apnea-continue CPAP
# Cognitive impairment
# History of lumbar laminectomy, chronic back pain
# DVT prophylaxis-continue Eliquis
# Full code
Discussed with nursing at bedside
Discussed with at bedside
Encourage out of bed to chair
Anticipated Discharge: Within 24 hours
Subjective/Interval History
-
Date of Service: September 30, 2024
Objective Data
-
Labs:
Laboratory Results
09/30/24
05:21
WBC 11.8 H
Hgb 13.3
Hct 39.7
Plt Count 263
Sodium 141
Potassium 4.9
Chloride 111 H
Carbon Dioxide 20 L
BUN 30 H
Creatinine 1.2
Glucose 302 H
Calcium 8.9
Vital Signs:
Vital Signs
Temp Pulse Resp BP Pulse Ox
97.4 F 72 18 151/83 96
09/30/24 07:16 09/30/24 07:16 09/30/24 07:16 09/30/24 07:16 09/30/24 08:00
I&O
09/29/24 09/30/24 10/01/24
06:59 06:59 06:59
Intake Total 1260 / 1260
Output Total 1350 / 1350 2425 / 2425
Balance -1350 / -1350 -1165 / -1165
[2024-09-30 15:15] VITALS: BP 141/65
[2024-09-30 16:21] LABS: Glucose - Point of Care 258 mg/dl (70-99)
[2024-09-30] MEDS: PROSCAR 5 MG PO (17:04)
[2024-09-30] MEDS: FLOMAX 0.4 MG PO (17:04)
[2024-09-30 21:04] LABS: Glucose - Point of Care 151 mg/dl (70-99)
[2024-09-30] MEDS: HUMULIN N KWIKPEN 50 UNITS SC (21:31)
[2024-09-30 23:33] VITALS: BP 145/73
[2024-10-01] MEDS: TYLENOL 1000 MG PO ×2 (02:31→07:59)
[2024-10-01 07:00] VITALS: BP 167/79
[2024-10-01 07:17] LABS: Glucose - Point of Care 201 mg/dl (70-99)
[2024-10-01] MEDS: NOVOLOG FLEXPEN-LOW RESISTANCE 2 UNITS SC (07:56)
[2024-10-01] MEDS: NOVOLOG FLEXPEN 10 UNITS SC (07:57)
[2024-10-01] MEDS: DELTASONE 30 MG PO (07:58)
[2024-10-01] MEDS: HUMULIN N KWIKPEN 60 UNITS SC (07:58)
[2024-10-01] MEDS: JANUVIA 100 MG PO (07:58)
[2024-10-01] MEDS: OCUVITE SOFTGEL 1 CAP PO (07:58)
[2024-10-01] MEDS: HIPREX 1 GRAM PO (07:59)
[2024-10-01] MEDS: FLORASTOR 250 MG PO (07:59)
[2024-10-01] MEDS: MUCINEX 600 MG PO (07:59)
[2024-10-01] MEDS: ELIQUIS 5 MG PO (07:59)
[2024-10-01 08:28] LABS: Blood Urea Nitrogen 33 mg/dl (9-20); Calcium 9.2 mg/dl (8.4-10.2); Carbon Dioxide 24 mmol/L (22-30); Chloride 107 mmol/L (98-107); Estimated Creatinine Clearance 62 ml/min; Glucose 166 mg/dl (70-99); Potassium 4.1 mmol/L (3.5-5.1); Sodium 140 mmol/L (135-145); eGFR > 60.00
[2024-10-01 10:11] VITALS: BP 147/73; O2SAT 98
--- NOTE | 2024-10-01 10:51 | W.PN.URO.CBU ---
Today's Communication / Plan
-
home when medically cleared with arechiga
Assessment / Plan
-
hx of recurrent UTI
urinary retention with hydro
pt improving from gu standpoint
no evid of infx at this time- follow cx's
continue arechiga and track cr level
hold eliquis today- if urine remains clear ok to restart tomorrow
will follow- but likely will need to be discharged with arechiga and outpt cyto/ eval for surgical candidacy
Diagnosis
-
Date of Service: October 01, 2024
-
Patient Diagnosis:
Post Op Day:
Patient Diagnosis:
Post Op Day:
Patient Diagnosis:
Post Op Day:
Patient Diagnosis:
Post Op Day:
Patient Diagnosis:
recurrent UTI
urinary retention
hydro and ARF secondary to bladder obstruction
Subjective
-
hates arechiga
Objective
-
Vital Signs
Temp Pulse Resp BP Pulse Ox
98.2 F 62 17 167/79 97
10/01/24 07:00 10/01/24 07:00 10/01/24 07:00 10/01/24 07:00 10/01/24 08:00
Intake and Output
09/30/24 10/01/24 10/02/24
06:59 06:59 06:59
Intake Total 1260 / 1260 150 / 150
Output Total 2425 / 2425 1175 / 1175
Balance -1165 / -1165 -1025 / -1025
Intake:
Oral fluids 1260 / 1260 150 / 150
Output:
Urine, Arechiga 2425 / 2425 1175 / 1175
Laboratory Results
09/30/24 05:21
10/01/24 06:37
Review of Systems
-
: Difficulty Voiding
Physical Exam
-
General - well developed, well nourished, no acute distress
Chest - clear bilaterally
Abdomen - soft, non-tender, positive bowel sounds, no CVAT, no incisional pain or distention
Genitalia - normal
Rectal - normal
Skin - warm & dry with no rash
Neuro - AOx3, no motor deficits
Extremities - no clubbing, no cyanosis, no edema
Incision - clean, dry
Dressing - clean, dry, intact
Care Review
Data Reviewed
Discussed with: Family
[2024-10-01 11:57] LABS: Glucose - Point of Care 101 mg/dl (70-99)
[2024-10-01 12:02] LABS: COVID-19 Antigen Negative (Negative)
[2024-10-01] MEDS: NOVOLOG FLEXPEN-LOW RESISTANCE SC (12:22)
--- NOTE | 2024-10-01 12:46 | W.PN.HOSP.TC ---
Today's Communication/Plan
-
Discharge to rehhab
Assessment / Plan
Assessment / Plan
88-year-old female presented with generalized weakness and body aches. He was admitted here recently and was discharged. At that time he had ileus. Patient's creatinine was found to be 8.8 on admission and straight cath revealed 700 mL of urine.
CT abdomen and pelvis-mild hepatomegaly, markedly limited evaluation. Moderate bilateral renal collecting system and ureteral dilatation cannot exclude 1 mm calculus along the course of the distal right ureter. Tiny bilateral nonobstructing renal
calculi. Cannot exclude ureteral and renal collecting system dilatation based on vesicoureteral reflux. Stable mesenteric pancolitis.
MRI of the cervical spine-chronic degenerative changes in the cervical spine including degenerative disc disease with multilevel disc bulges, arthrosis, facet arthrosis. Varying degrees of chronic multilevel bilateral neuroforaminal stenosis at
C4-C5 level. Mild progression of degenerative findings
Examination awake and alert
Cardiovascular system S1-S2 appreciated
Chest clear to auscultation
Abdomen soft nontender
No pedal edema
Awake alert and oriented.
# Acute kidney injury with hyperkalemia and metabolic acidosis
Creatinine was 8.8 with a potassium of 5.5 on admission
Hyperkalemia resolved
Likely secondary to postrenal reasons
Continue urinary diversion with Mackay catheter
Creatinine improving 1.1 today
# High blood pressure. Patient does not have a history of hypertension-blood pressure better. Add Prn Hydralazine
# Neck pain-tenderness appreciated on exam. Arthritis. Patient is not able to move. MRI of the cervical spine as above. Trial of steroids to see if the pain is better. Much better
# Abnormal urinalysis-stopped ceftriaxone as cultures are negative
# Atrial pqtyojzndhgf-flsijyqkss-levtaikfs Eliquis
# Enlarged prostate-continue Finasteride and Flomax
# Diabetes-continue NPH, sliding scale. Januvia
Patient normally uses NPH insulin 60 units in the morning and 50 units in the evening
Watch sugars with steroids
NovoLog 5 AC added with steroids
# History of stroke-Eliquis
# Obesity with a BMI of 34
# Sleep apnea-continue CPAP
# Cognitive impairment
# History of lumbar laminectomy, chronic back pain
# DVT prophylaxis-continue Eliquis
# Full code
Discussed with nursing at bedside
Discussed with at bedside
More than 30 minutes spent in discharge including
Final examination of the patient
Summarizing hospital stay
Instructions for continuing care to all relevant caregivers
Preparation of discharge records, prescriptions, and referral forms
Total time spent (in minutes): 38 min
D/W case management
Anticipated Discharge: Today
Subjective/Interval History
-
Date of Service: October 01, 2024
Objective Data
-
Labs:
Laboratory Results
10/01/24
06:37
Sodium 140
Potassium 4.1
Chloride 107
Carbon Dioxide 24
BUN 33 H
Creatinine 1.1
Glucose 166 H
Calcium 9.2
Vital Signs:
Vital Signs
Temp Pulse Resp BP Pulse Ox
98.2 F 62 17 167/79 97
10/01/24 07:00 10/01/24 07:00 10/01/24 07:00 10/01/24 07:00 10/01/24 08:00
I&O
09/30/24 10/01/24 10/02/24
06:59 06:59 06:59
Intake Total 1260 / 1260 150 / 150 480 / 480
Output Total 2425 / 2425 1175 / 1175
Balance -1165 / -1165 -1025 / -1025 480 / 480
--- NOTE | 2024-10-01 12:56 | W.DS.TRANS ---
Addendum entered and electronically signed by Bandar Truong MD 10/01/24 14:09:
Dictation- [id number]
Original Note:
DC Summary - Finish Opener
-
Discharge Instructions:
Discharge Diagnosis/Procedures Acute kidney injury
Urinary retention status post Mackay catheter
placement
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
Atrial fibrillation
Enlarged prostate
Diabetes
History of stroke
Sleep apnea
Diet Diabetic, Carb Controlled
Activity As tolerated,With assistance
Driving Restrictions No driving
Other Services PT,OT
Instructions:
Stand-Alone Forms:
Changes to Home Medications: Yes
Discharge Medications:
DC Medications w/original date entered in [facility]
finasteride 5 mg tablet 5 mg PO QPM Urinary issue 04/21/11
tamsulosin 0.4 mg capsule 0.4 mg PO QPM Urinary issue 04/21/11
sitagliptin phosphate 100 mg tablet (Januvia) 100 mg PO DAILY Diabetes 08/08/20
vitamins A,C,I-zrac-fwkukx 4,296 mcg-226 mg-90 mg capsule (PreserVision AREDS) 1 cap PO BID Supplement 08/08/20
guaifenesin 600 mg tablet, extended release 12 hr (Mucinex) 600 mg PO Q12H cough 03/03/24
Lactobac no.2-Bifidobac no.1-S. thermo 112.5 billion cell capsule (Visbiome) 1 cap PO DAILY Gastrointestinal Issue 09/09/24
acetaminophen 500 mg tablet 1,000 mg PO BID Pain 09/09/24
ascorbic acid (vitamin C) 500 mg chewable tablet 500 mg PO BID Supplement 09/09/24
cranberry fruit 450 mg tablet (cranberry) 450 mg PO DAILY Supplement 09/09/24
methenamine hippurate 1 gram tablet 1 g PO BID Infection 09/10/24
aluminum-mag hydroxide-simethicone 200 mg-200 mg-20 mg/5 mL oral susp (Mag-Al Plus) 30 ml PO QIDPRN PRN GERD 09/26/24
apixaban 5 mg tablet (Eliquis) 5 mg PO BID Blood Clot Prevention/Tx 09/26/24
insulin NPH isoph U-100 human 100 unit/mL (3 mL) subcutaneous pen (Humulin N NPH U-100 Insulin KwikPen) 50 unit SC DAILY@1700 Diabetes 09/26/24
insulin NPH isoph U-100 human 100 unit/mL (3 mL) subcutaneous pen (Humulin N NPH U-100 Insulin KwikPen) 60 unit SC DAILY@0800 Diabetes 09/26/24
miconazole nitrate 2 % topical powder (Miconazorb AF) 1 applic topical BID Hormonal Agent 09/26/24
bisacodyl 10 mg rectal suppository 10 mg NC [id number] PRN constipation #0 ea 10/01/24
hydralazine 10 mg tablet 10 mg PO TID PRN SBP over 150 mm hg #0 tabs 10/01/24
insulin aspart U-100 100 unit/mL (3 mL) subcutaneous pen 5 unit (0.05 mL) SC AC Diabetes #0 mL 10/01/24
polyethylene glycol 3350 17 gram oral powder packet 17 g PO DAILY Constipation #0 ea 10/01/24
prednisone 10 mg tablet See Rx Instructions .Route .COMPLEX arthritis #9 tabs 10/01/24
sennosides 8.6 mg-docusate sodium 50 mg tablet 1 tab PO BIDPRN PRN constipation #0 tabs 10/01/24
Home Medication Changes
Midodrine stopped
New medicines
Senokot, prednisone, MiraLAX, NovoLog, hydralazine, bisacodyl
Pending Results: No
[2024-10-01] MEDS: NOVOLOG FLEXPEN SC (13:01)
--- NOTE | 2024-10-01 13:04 | CM ---
Patient stable for d/c today. Patient accepted at [facility].
COVID (-)
Ambulance transport, forms on chart
IMM verbally reviewed, copy provided, copy on chart
[facility]:
Report: [phone]

Plan: D/c to [facility] today
[2024-10-01 13:25] VITALS: BP 145/64
--- NOTE | 2024-10-01 15:06 | W.PN.NEPH.PH ---
Today's Communication / Plan
-
Sign off
Assessment/Plan
-
88-year-old male past medical history of A-fib currently on Eliquis, hypertension, diabetes, previous stroke presenting to the emergency department with concerns of generalized weakness and bodyaches generalized weakness worsening over the past few
days and bodyaches . He currently is in rehab from that admission couple weeks ago for ileus which resolved on its own without intervention.
He has a normal creatinine at baseline and presents with a creatinine of 8.8.
Straight cath in the ER revealed 700 cc of urine output.
Hemodynamically stable
Impression.
Acute kidney injury with a creatinine of 8.8 discharged September 18 with a creatinine of 0.9.
Leukocytosis possible UTI./History of recurrent UTIs
Atrial fibrillation stable.
Hyperkalemia.
Acute metabolic acidosis.
Diabetes stable.
Plan.
RAVEN resolved
Metabolic acidosis resolved
follow BMP
continue flomax/proscar
arechiga management per urology
no midodrine needed
Sign off
-
-
Date of Service: October 01, 2024
CC / HPI / ROS
-
Chief Complaint:
Acute kidney injury
History of Present Illness:
Acute kidney injury secondary to urinary retention status post Arechiga catheter
BP stable
RAVEN/Cr down to 1.1 stable
K normalized
Metabolic acidosis resolved
eating more
Review of Systems:
no CP/SOB
Arechiga catheter nonoliguric postobstructive diuresis
Labs
-
Labs:
WBC 11.8 10^3/uL (4.8-10.8) H 09/30/24 05:21
RBC 4.21 10^6/uL (4.70-6.10) L 09/30/24 05:21
Hgb 13.3 g/dL (13.0-18.0) 09/30/24 05:21
Hct 39.7 % (39.0-52.0) 09/30/24 05:21
Plt Count 263 10^3/uL (130-400) 09/30/24 05:21
Sodium 140 mmol/L (135-145) 10/01/24 06:37
Potassium 4.1 mmol/L (3.5-5.1) 10/01/24 06:37
Chloride 107 mmol/L (98-107) 10/01/24 06:37
Carbon Dioxide 24 mmol/L (22-30) 10/01/24 06:37
BUN 33 mg/dl (9-20) H 10/01/24 06:37
Creatinine 1.1 mg/dL (0.7-1.3) 10/01/24 06:37
eGFR > 60.00 10/01/24 06:37
Glucose 166 mg/dl (70-99) H 10/01/24 06:37
Calcium 9.2 mg/dl (8.4-10.2) 10/01/24 06:37
Albumin 3.6 g/dl (3.5-5.0) 09/26/24 14:36
Physical Exam
-
Vital Signs:
Vital Signs
Temp Pulse Resp BP Pulse Ox
97.9 F 67 18 145/64 97
10/01/24 13:25 10/01/24 13:25 10/01/24 13:25 10/01/24 13:25 10/01/24 13:25
Cardiovascular:: Regular rate and rhythm
Respiratory:: Bilateral: Coarse
Lung Excursion:: Normal
Abdomen:: Nontender and Soft
Bowel Sounds:: Normal
Extremity Edema:: None: Bilateral:
Arechiga Catheter: Yes
[2024-10-01 15:30] VITALS: BP 160/76
== END 2024-10-01 16:56 | DRG 683 ==
LOC: 4 WEST ACU 16:41
PROVIDERS: Emergency Medicine; Registered Nurse; Specialist; ADMITTING PHYSICIAN Internal Medicine; ATTENDING PHYSICIAN Hospitalist; CONSULT PHYSICIAN Internal Medicine Nephrology; CONSULT PHYSICIAN Specialist; EMERGENCY PHYSICIAN Emergency Medicine; FAMILY PHYSICIAN Internal Medicine Geriatric Medicine
DX: N17.9 Acute kidney failure, unspecified (principal); E87.21 Acute metabolic acidosis; N39.0 Urinary tract infection, site not specified; K65.4 Sclerosing mesenteritis; N13.2 Hydronephrosis with renal and ureteral calculous obstruction; I10 Essential (primary) hypertension; I48.0 Paroxysmal atrial fibrillation; E87.5 Hyperkalemia; N40.1 Benign prostatic hyperplasia with lower urinary tract symptoms; R33.8 Other retention of urine; E11.29 Type 2 diabetes mellitus with other diabetic kidney complication; G47.33 Obstructive sleep apnea (adult) (pediatric); N28.82 Megaloureter; M50.31 Other cervical disc degeneration, high cervical region; M50.321 Other cervical disc degeneration at C4-C5 level; M50.322 Other cervical disc degeneration at C5-C6 level; M50.323 Other cervical disc degeneration at C6-C7 level; M50.33 Other cervical disc degeneration, cervicothoracic region; G31.84 Mild cognitive impairment of uncertain or unknown etiology; E66.01 Morbid (severe) obesity due to excess calories; G47.30 Sleep apnea, unspecified; M47.812 Spondylosis without myelopathy or radiculopathy, cervical region; Z11.52 Encounter for screening for COVID-19; Z68.34 Body mass index [BMI] 34.0-34.9, adult; Z79.4 Long term (current) use of insulin; Z79.01 Long term (current) use of anticoagulants; Z79.84 Long term (current) use of oral hypoglycemic drugs; Z79.899 Other long term (current) drug therapy; Z86.73 Personal history of transient ischemic attack (TIA), and cerebral infarction without residual deficits; Z87.440 Personal history of urinary (tract) infections
CPT/HCPCS: 72141; 74176; 80048; 80053; 81003; 81015; 81099; 82962; 85025; 85027; 87040; 87070; 87086; 87502; 87811; 92610; 93005; 96374; 97163; 97530; 99291